=== PATIENT | female | born 1935 | race Caucasian/White ===

== ENCOUNTER → 2023-11-02 09:59 | Outpatient (REF) | payer OTHER, SELFPAY | LOC: HWRAD 09:59 | PROVIDERS: ATTENDING PHYSICIAN Colon & Rectal Surgery; FAMILY PHYSICIAN Family Medicine | DX: Z86.010 Personal history of colon polyps (principal) | CPT/HCPCS: 74261 ==

== ENCOUNTER → 2023-12-07 10:33 | Outpatient (REF) | payer OTHER, SELFPAY | LOC: HWWDC 10:33 | PROVIDERS: ATTENDING PHYSICIAN Obstetrics & Gynecology Gynecology; FAMILY PHYSICIAN Family Medicine | DX: Z12.31 Encounter for screening mammogram for malignant neoplasm of breast (principal) | CPT/HCPCS: 77063; 77067 ==

== ENCOUNTER → 2023-12-10 14:14 | Outpatient (REF) | payer OTHER, SELFPAY | LOC: HWRAD 14:14 | PROVIDERS: ATTENDING PHYSICIAN Internal Medicine; FAMILY PHYSICIAN Family Medicine | DX: Z90.5 Acquired absence of kidney (principal); C64.2 Malignant neoplasm of left kidney, except renal pelvis; N28.1 Cyst of kidney, acquired | CPT/HCPCS: 76775 ==

== ENCOUNTER → 2024-02-12 09:09 | Outpatient (REF) | payer OTHER, SELFPAY | LOC: PAVMRI 09:09 | PROVIDERS: ATTENDING PHYSICIAN Internal Medicine; FAMILY PHYSICIAN Family Medicine | DX: N28.89 Other specified disorders of kidney and ureter (principal) | CPT/HCPCS: 74183; A9575 ==

== ENCOUNTER 2024-03-11 20:22 | Inpatient (IN) | payer OTHER, SELFPAY ==
[2024-03-11 15:32] VITALS: BP 165/81
--- NOTE | 2024-03-11 17:10 | EDRN ---
Pt states she was leaving her urology office and foot got caught on ground causing pt to trip and fall. Pt fell on L side of head and bilateral knees. Pt arrived to ED via ambulance.
[2024-03-11 17:11] VITALS: BMI 26.6
--- NOTE | 2024-03-11 17:13 | EDRN ---
Pt states she was leaving PCP office and shoe got stuck on ground and she fell, hitting L side of head above eyebrow (bruising and swelling noted) and bilateral knees (bilateral abrasions w/R knee still bleeding and bilateral knee bruising noted).
Pain to L head 04/25. bilateral knees 11/25. L knee is worse than right and pain increases w/wt bearing.
--- NOTE | 2024-03-11 17:15 | EDRN ---
Yulissa Vega SECURITIES TRADER in to see pt.
[2024-03-11 17:20] VITALS: BP 190/73
[2024-03-11 18:25] VITALS: BP 164/89
--- NOTE | 2024-03-11 18:56 | EDRN ---
Pt is asking to take her 12.5 mg of coreg that she usually takes at this time. Pt is worried about her BP at this time. Will contact Yulissa Vega NP.
[2024-03-11] MEDS: ADACEL 0.5 ML IM (19:14)
--- NOTE | 2024-03-11 19:16 | ED.MUSCINJ ---
HPI-Injury
General
Chief Complaint: Fall
Source: patient
Exam Limitations: none
Time Seen by Provider: 03/11/24 16:59
Nursing documentation reviewed up to this point in time: agreed with
History of Present Illness-Injury
Is this injury a work related problem?: No
Is pt an associate of [facility]/[place]?: No
Initial Injury comments:
Patient states she tripped and fell while walking to an appointment. Denies hitting her head. Unable to get self up. COmplains of pain to bilateral knees. Has laceration to left eyebrow Brought to ED via EMS for eval.Incident occurred just [employer]
Past History
Past History
ED Past Medical History: GERD, HTN and Hypercholesterolemia
Review of Systems
Review of Systems
Allergies reviewed?: Yes
All Other Systems: ROS reviewed and negative except as documented in HPI and ROS
Constitutional: Reports no symptoms
EENT: Reports no symptoms
Respiratory: Reports no symptoms
Cardiac: Reports no symptoms
ABD/GI: Reports no symptoms
Musculoskeletal: Reports joint pain (Pain to both knees)
Skin: Reports other (abrasions bilateral knees. Laceration to left eyebrow)
Neurological: Reports no symptoms
Psychiatric: Reports no symptoms
Musculoskeletal Injury Exam
Musculoskeletal Injury Exam
Right Knee:
Pain with Movement?: Moderate
Tender to palpation?: Moderate
Soft tissue swelling?: Mild
External deformity and angulation?: None
Joint effusion?: None
Contusion?: Moderate
Hematoma-local bleeding into tissue?: Moderate
Strain- Sprain- Tear (Connective tissue injury)?: None
Crepitus with movement?: No
Joint instability?: No
Malalignment/deformity?: No
Range of motion: Limited
Distal skin color and temperature: normal-warm & good color
Capillary Refill: normal
Normal distal neurovascular exam?: Yes
Peripheral Pulses: posterior tibial (left): 3+, posterior tibial (right): 3+, dorsalis pedis (left): 3+ and dorsalis pedis (right): 3+
Left Knee:
Pain with Movement?: Moderate
Tender to palpation?: Moderate
Soft tissue swelling?: Moderate
External deformity and angulation?: None
Contusion?: Moderate
Hematoma-local bleeding into tissue?: Moderate
Strain- Sprain- Tear (Connective tissue injury)?: Moderate
Crepitus with movement?: No
Joint instability?: No
Malalignment/deformity?: No
Range of motion: Limited
Distal skin color and temperature: normal-warm & good color
Capillary Refill: normal
Skin Exam
Laceration
Left Eye brow:
Length in cm: 2
Orientation: diagonal
Type of Laceration: simple
Any active bleeding?: no active bleeding
Distal skin color and temperature: normal-warm & good color
Normal distal neurovascular exam: Yes
Range of motion: full
Abrasion
Right Knee:
Description of abrasion: superfical/clean
Left Knee:
Description of abrasion: superfical/clean
Phy Exam
General Physical Exam
General Presentation: well appearing and moderate distress
General age: appears stated age
General Skin: warm and dry
General Habitus: normal
General Mental: alert
Musculoskeletal Exam
Musculoskeletal Exam: neuro vasc intact and other (bruising and swelling bilateral knees. Unable to bear weight on left leg)
Skin Exam
Skin Exam: normal color, warm/dry and no rash
Psychiatric Exam
Psychiatric Exam: normal mood/affect
Injury Course
Orders/Labs/Results
Orders:
Orders
03/11/24 Dinner
Regular
At Your Request: Limited Participation
03/11/24 15:34
CR Knee - Left 4 Or More View* Urgent
Comment:
Reason For Exam: injury
03/11/24 17:41
CR Knee- Right 4 Or More View* Urgent
Comment:
Reason For Exam: pain, injury
03/11/24 17:44
Tetanus/Diphth/Acelpertussis [Adacel] 0.5 ml IM .ONCE ONE
03/11/24 19:06
Carvedilol [Coreg] 12.5 mg PO NOW STA
03/11/24 19:51
ORTHOPEDIC CONSULT Urgent
Consulting Provider: Nirav Arroyo
Was physician already notified: Yes
03/11/24 20:05
Admit/Transfer Patient As Directed
Co-Sign Provider:
Level of Care: Inpatient admission
Assign to:: Medical/Surgical
Physician / Group: pennie
Diagnosis: proximal tibia fracture
Reason for Hospitalization: proximal tibia fracture
Expected length of stay greater than two midnights?: Yes
ELOS- Estimated Length of Stay in days: 2
I certify the patient meets the requirements for IP care: Yes
PRN Pain Medication Management As Directed
May give lesser potent ordered pain med per pt: Yes
preference::
Protocol:: Medication orders for pain may be administered in a
manner that supports deferring to patient preference
when the pt is:
- Requesting an ordered lesser potent pain medication.
Least to most potent pain medications are defined
as: acetaminophen < NSAID < tramadol < opioids
(morphine, oxycodone, hydromorphone).
- Requesting a lesser dose of the same medication IF
ORDERED.
- Requesting a less intrusive route of administration
if both routes are prescribed by the provider (PO <
IV).
03/11/24 20:07
Code Status As Directed
Resuscitation Status: Full Code
03/11/24 20:24
Complete Blood Count/With Diff Urgent
Comprehensive Metabolic Panel Urgent
03/11/24 21:32
Acetaminophen [Tylenol] 650 mg PO Q4HPRN PRN
Ondansetron Injectable [Zofran] 4 mg IV Q6HPRN PRN
Oxycodone [Roxicodone] 5 mg PO Q4HPRN PRN
Tramadol HCl [Ultram] 50 mg PO Q6HPRN PRN
03/11/24 21:32
Activity As Directed
Activity Level: As Tolerated
Pneumatic Compression Sleeves As Directed
Type: Knee high
Vital Signs As Directed
Frequency: Per unit guidelines
DX Deep Vein Thrombosis Video Routine
03/12/24 05:43
Complete Blood Count/With Diff IN AM
Comprehensive Metabolic Panel IN AM
*Radiology
Radiology exam reviewed: radiology read reviewed
*Pulse Oximetry
Patient hypoxic: no
*Critical Care Note
Total Time (30-74mins, 75-104mins- exclusive of procedures): Not Applicable
ED Attending Note
-
Portions of this chart may have been created with voice recognition software.� Occasional wrong word or��sound alike� substitutions may have occurred due to the inherent limitations of voice recognition software.
Discharge Plan
Departure
Patient Disposition: Admit
Date of Disposition: 03/11/24
Time of Disposition: 19:32
Presentation/result/management discussed w/ accepting MD/DO: Hospitalist
Patient with high blood pressure during this ER visit?: No
Condition: Fair
Covid-19: Not Applicable
Discharge Problem:
Ambulatory dysfunction, Fracture, tibia
Interventions
Interventions:
*Risk Screen - Suicide Last Done: 03/11/24 17:12
*General Assessment Last Done: 03/11/24 17:12
*Neglect/Abuse Screening Last Done: 03/11/24 17:12
ED- Fall Risk Assessment Last Done: 03/11/24 17:13
*ED COVID-19 Vaccine History Last Done: 03/11/24 17:12
*Nursing Disposition Last Done: 03/11/24 22:07
ED-Musculoskeletal Assessment Last Done: 03/11/24 17:16
ED- Neurological Assessment Last Done: 03/11/24 17:16
ED-Skin Assessment Last Done: 03/11/24 17:16
Discharge Date and Time
Discharge Date/Time: 03/11/24 22:07
[2024-03-11] MEDS: COREG 12.5 MG PO (19:18)
--- NOTE | 2024-03-11 19:27 | EDRN ---
Bilateral knees cleansed extensively w/ saline and dressed w/ double antibiotic ointment, telfa and renny.
--- NOTE | 2024-03-11 20:09 | HPS.HSE ---
Family Physician
-
Family Physician: Glen Lomeli
Chief Complaint
-
fall
History of Present Illness
88-year-old female past medical history of paroxysmal atrial fibrillation, bronchiectasis hypertension, GERD, hypercholesterolemia presenting with trip and fall while walking to an appointment. Denies hitting her head. She complains of left knee
pain.
Denies smoking alcohol use.
Medical History
Past Medical History
Past Medical History: Reports Other (paroxysmal atrial fibrillation, bronchiectasis hypertension, GERD, hypercholesterolemia)
Past Surgical History: Reports None
Social History
Tobacco: Non-smoker
Alcohol: None
Drug: None
Family History
Family History: Not pertinent
Allergies / Home Medications
Allergies reflects when Allergies were last updated in [employer].
Home Medications with original date entered in [employer]
Allergy/Medication List:
Allergies
Allergy/AdvReac Type Severity Reaction Status Date / Time
adhesive tape Allergy sensitive Verified 03/11/24 15:32
skin
chlorpheniramine Allergy taken from Verified 03/11/24 15:32
primary
follow up
visit
oxycodone Allergy taken from Verified 03/11/24 15:32
primary
follow up
visit
phenylephrine Allergy taken from Verified 03/11/24 15:32
primary
follow up
visit
rosuvastatin Allergy taken from Verified 03/11/24 15:32
primary
follow up
visit
silver sulfadiazine Allergy taken from Verified 03/11/24 15:32
primary
follow up
visit
methylscopolamine Allergy taken from Uncoded 03/11/24 15:32
primary
follow up
visit
Home Medications
Mometasone Furoate 1 drops EACH EAR HS EAR PROBLEM 04/29/19
carvedilol 12.5 mg tablet 12.5 mg PO BID Heart Failure 04/29/19
denosumab 60 mg/mL subcutaneous syringe (Prolia) 60 mg SQ [id number] OSTEOPROSIS 04/29/19
pantoprazole 40 mg tablet,delayed release 40 mg PO DAILY Gastrointestinal issue 04/29/19
temazepam 15 mg capsule 15 mg PO HS Sleep 04/29/19
tramadol 50 mg tablet 50 mg PO DAILYPRN PRN pain 04/29/19
Cholecalciferol (Vitamin D3) [Vitamin D3] 50 mcg PO DAILY Supplement 08/09/20
Konsyl Daily Fiber 28.3% Packet 1 tsp PO DAILY Supplement 08/09/20
Systane Eye Drops 1 drp BOTH EYES TID Eye condition 08/09/20
amlodipine 5 mg tablet 5 mg PO DAILY Blood pressure 08/09/20
apixaban 5 mg tablet (Eliquis) 5 mg PO BID Blood clot prevention/tx 08/09/20
epdmotjy-gpyj-jupu 8 mg-folic 400 mcg-K 50 mcg-lutein 300 mcg tablet (Centrum Silver Women) 1 ea PO NOON Supplement 08/09/20
pitavastatin calcium 2 mg tablet (Livalo) 2 mg PO Q48H High cholesterol 08/09/20
vit C 250 mg-vit E 90 mg-zinc 40 mg-copper 1 sg-ywnncx-zqpgjp capsule (PreserVision AREDS-2) 1 ea PO BID Supplement 08/09/20
aspirin 81 mg chewable tablet 81 mg PO DAILY 10/17/20
Citracal Calcium 1 tab PO BID 11/29/20
levothyroxine 100 mcg tablet 100 mcg PO DAILY 11/29/20
Review of Systems
-
History Source: Patient
A 12 point ROS was completed and negative except as noted: Yes
Constitutional: Reports No Symptoms
EENT: Reports No Symptoms
Respiratory: Reports No Symptoms
Cardiac: Reports No Symptoms
Abdomen/GI: Reports No Symptoms
: Reports No Symptoms
Musculoskeletal: Reports No Symptoms
Skin: Reports No Symptoms
Neurological: Reports No Symptoms
Endocrine: Reports No Symptoms
Hematologic/Lymphatic: Reports No Symptoms
Psych: Reports No Symptoms
Physical Exam
Vital Signs
Vital Signs
Temp Pulse Resp BP Pulse Ox
98.2 F 87 16 180/103 97
03/11/24 15:32 03/11/24 19:18 03/11/24 18:25 03/11/24 19:18 03/11/24 18:25
Physical Exam
General: Well Developed, Well Nourished and No Apparent Distress
HEENT: NormoCephalic, Moist mucous membranes and Atraumatic
Respiratory: Clear
Cardiac: S1/S2 and Regular Rhythm; No Murmur or Rub
GI: Soft, Non Tender, Non Distended and Normal Bowel Sounds; No Organomegaly
Rectal: Deferred by Provider
Musculoskeletal: No Clubbing, No Cyanosis and No Edema
Skin: No Rash
Neuro: Nonfocal/grossly intact
Data Reviewed
-
Lab Data: Labs Reviewed by me
Old Records: Reviewed
Impression/Plan
-
IMPRESSION:
PLAN:
# Left proximal tibia fracture
-N.p.o. postmidnight in case surgery recommended
-Orthopedics consulted
-Tylenol, tramadol, oxycodone for pain as needed
-Zofran for nausea
#Forehead laceration
Hypertension
-Continue amlodipine, Coreg
Paroxysmal atrial fibrillation
-Not on anticoagulation
-Continue flecainide
Bronchiectasis
GERD
-Continue Protonix
Hypercholesterolemia
-Continue statin
Hypothyroidism
-Continue levothyroxine
Full code
DVT prophylaxis�SCDs
N.p.o. past midnight
[2024-03-11 20:31] LABS: % Basophils 0.1 % (0-2); % Immature Granulocytes 0.2 % (0-0.5); % Lymphocytes 12.6 % (20.5-51.1); % Monocytes 7.7 % (1.7-9.3); % Neutrophils 79.4 % (42.2-75.2); Absolute Lymphocytes 1.7 10^3/uL (1.2-3.4); Absolute Neutrophils 10.4 10^3/uL (1.4-6.5); Hematocrit 40.1 % (37.0-47.0); Mean Corp Hgb Conc. 32.4 g/dL (33.0-37.0); Mean Corpuscular Hgb 28.9 pg (27.0-31.0); Mean Corpuscular Volume 89.1 fL (81.0-99.0); Mean Platelet Volume 10.5 fL (7.4-10.4); Nucleated Red Blood Cells % 0 %; Platelet Count 163 10^3/uL (130-400); Red Cell Dist. Width 12.9 % (11.5-14.5); White Blood Cell Count 13.1 10^3/uL (4.8-10.8)
[2024-03-11 20:49] LABS: ALT (SGPT) 18 U/L (0-35); AST (SGOT) 31 U/L (14-36); Albumin 3.8 g/dl (3.5-5.0); Alkaline Phosphatase 88 U/L (38-126); Blood Urea Nitrogen 23 mg/dl (7-17); Calcium 9.2 mg/dl (8.4-10.2); Carbon Dioxide 26 mmol/L (22-30); Chloride 102 mmol/L (98-107); Estimated Creatinine Clearance 36 ml/min; Glucose 123 mg/dl (70-99); Potassium 4.4 mmol/L (3.5-5.1); Sodium 136 mmol/L (135-145); Total Bilirubin 0.5 mg/dl (0.2-1.3); Total Protein 6.4 g/dl (6.3-8.2); eGFR > 60.00
--- NOTE | 2024-03-11 21:15 | PTCARENOTE ---
patient arrived to [facility] from ED, assisted into bed. Knee immobolizer maintained to L leg, b/l knee abrasions with intact dressings. L eyebrow laceration with intact steri strips, gross ecchymosis around L eye with swelling. Patient is AAOx3, very
pleasant, c/o of pain only during transfer to bed. Assessment on going.
[2024-03-11 21:40] VITALS: BP 197/95
[2024-03-11 21:50] VITALS: BMI 26.5
[2024-03-11] MEDS: ZOFRAN 4 MG IV (22:50)
[2024-03-11] MEDS: TYLENOL 650 MG PO (22:51)
[2024-03-11 23:10] VITALS: BP 172/78
[2024-03-11 23:44] VITALS: BMI 26.5
[2024-03-12] VITALS (12 sets, daily range): BP systolic 87–143; BP diastolic 47–82
[2024-03-12] MEDS: RESTORIL 15 MG PO ×2 (00:07→23:51)
[2024-03-12] MEDS: REFRESH CELLUVISC GEL 1 DROPS BOTH EYES ×4 (00:07→20:06)
[2024-03-12] MEDS: TAMBOCOR 50 MG PO ×3 (00:29→23:51)
[2024-03-12] MEDS: SYNTHROID 150 MCG PO (06:10)
[2024-03-12 06:37] LABS: % Basophils 0.1 % (0-2); % Eosinophils 0.5 % (0-6); % Immature Granulocytes 0.4 % (0-0.5); % Lymphocytes 15.3 % (20.5-51.1); % Monocytes 8.7 % (1.7-9.3); Absolute Eosinophils 0.1 10^3/uL (0-0.7); Absolute Lymphocytes 1.6 10^3/uL (1.2-3.4); Absolute Monocytes 0.9 10^3/uL (0.1-0.6); Absolute Neutrophils 7.7 10^3/uL (1.4-6.5); Hematocrit 35.9 % (37.0-47.0); Hemoglobin 11.8 g/dL (12.0-16.0); Mean Corp Hgb Conc. 32.9 g/dL (33.0-37.0); Mean Corpuscular Hgb 28.8 pg (27.0-31.0); Mean Corpuscular Volume 87.6 fL (81.0-99.0); Mean Platelet Volume 11.2 fL (7.4-10.4); Nucleated Red Blood Cells % 0 %; Platelet Count 151 10^3/uL (130-400); Red Cell Dist. Width 13.2 % (11.5-14.5); White Blood Cell Count 10.2 10^3/uL (4.8-10.8)
[2024-03-12 06:58] LABS: ALT (SGPT) 15 U/L (0-35); AST (SGOT) 25 U/L (14-36); Albumin 3.2 g/dl (3.5-5.0); Alkaline Phosphatase 65 U/L (38-126); Blood Urea Nitrogen 24 mg/dl (7-17); Calcium 8.6 mg/dl (8.4-10.2); Carbon Dioxide 24 mmol/L (22-30); Chloride 102 mmol/L (98-107); Estimated Creatinine Clearance 29 ml/min; Glucose 115 mg/dl (70-99); Potassium 4.3 mmol/L (3.5-5.1); Sodium 135 mmol/L (135-145); Total Bilirubin 0.5 mg/dl (0.2-1.3); Total Protein 5.6 g/dl (6.3-8.2); eGFR 48.33
[2024-03-12] MEDS: PROTONIX 40 MG PO (08:28)
[2024-03-12] MEDS: COREG 12.5 MG PO ×2 (08:28→20:06)
[2024-03-12] MEDS: DETROL LA 4 MG PO (09:43)
[2024-03-12] MEDS: LOW STRENGTH ASPIRIN 81 MG PO (09:43)
--- NOTE | 2024-03-12 10:16 | CM ---
Reviewed the chart notes and spoke with the patient at the bedside. The patient resides alone in a first floor condo with no steps to enter. The patient reports having a cane. The patient has had [facility] in past, but no SNF. The patient
confirmed her pharmacy of choice is the [facility] [place] and PCP is Glen Lomeli. Ortho consult pending. CM continues to be available to patient/family and is monitoring medical plan for needs at discharge.
Plan: Discharge plans will depend on the patient's progress.
--- NOTE | 2024-03-12 10:45 | CON.ORTHO ---
Consultation
-
Date/Time Consultation Requested: 03/11/2024
Date/Time Consultation Performed: 03/12/2024
Requesting Provider: Josselin Vega NP
Performing Provider: Pavithra Massey PA-C, for Dr. Nirav Arroyo
Reason for Consultation: Left knee proximal tibia fracture; right knee pain
Consultation - Orthopedics
History
HPI: Ms. Nettles is an 88-year-old female who presented to [facility] emergency department after sustaining a fall at the [facility] while walking into an appointment. She reports she landed directly on both of her knees. Initially, the
left knee was more painful, but she was also complaining of right knee pain. X-rays of the bilateral knees were performed and the left knee was noted to have a nondisplaced fracture of the proximal tibia. X-rays of the right knee were negative for
acute fracture, but did demonstrate chondrocalcinosis and moderate tricompartmental osteoarthritis. She was placed in a knee immobilizer on her left knee and advised to remain nonweightbearing. She did attempt to get up in the emergency department
to go to the bathroom, however, found that she was unable to place any weight on her right knee in addition to the left knee. Today, she is also complaining of some pain in her right groin. No hip x-rays were obtained.
Past medical history: Significant for paroxysmal atrial fibrillation, bronchiectasis, hypertension, GERD, hypercholesterolemia.
Social history: Denies tobacco or alcohol use.
Review of systems: All systems reviewed and negative except for those mentioned in HPI.
Allergies / Home Medications
Allergy/AdvReac Type Severity Reaction Status Date / Time
adhesive tape Allergy sensitive Verified 03/11/24 15:32
skin
chlorpheniramine Allergy taken from Verified 03/11/24 15:32
primary
follow up
visit
oxycodone Allergy taken from Verified 03/11/24 15:32
primary
follow up
visit
phenylephrine Allergy taken from Verified 03/11/24 15:32
primary
follow up
visit
rosuvastatin Allergy taken from Verified 03/11/24 15:32
primary
follow up
visit
silver sulfadiazine Allergy taken from Verified 03/11/24 15:32
primary
follow up
visit
methylscopolamine Allergy taken from Uncoded 03/11/24 15:32
primary
follow up
visit
�Medication �Instructions �Recorded
Mometasone Furoate 1 drops EACH EAR HS EAR PROBLEM 04/29/19
carvedilol 12.5 mg tablet 12.5 mg PO BID Heart Failure 04/29/19
denosumab 60 mg/mL subcutaneous 60 mg SQ [id number] OSTEOPROSIS 04/29/19
syringe (Prolia)
pantoprazole 40 mg tablet,delayed 40 mg PO DAILY Gastrointestinal 04/29/19
release issue
temazepam 15 mg capsule 15 mg PO HS Sleep 04/29/19
tramadol 50 mg tablet 50 mg PO DAILYPRN PRN pain 04/29/19
Cholecalciferol (Vitamin D3) 50 mcg PO DAILY Supplement 08/09/20
[Vitamin D3]
Konsyl Daily Fiber 28.3% Packet 1 tsp PO DAILY Supplement 08/09/20
Systane Eye Drops 1 drp BOTH EYES TID Eye condition 08/09/20
hsnhalwn-pnqg-yjxs 8 mg-folic 400 1 ea PO NOON Supplement 08/09/20
mcg-K 50 mcg-lutein 300 mcg tablet
(Centrum Silver Women)
pitavastatin calcium 2 mg tablet 2 mg PO Q48H High cholesterol 08/09/20
(Livalo)
vit C 250 mg-vit E 90 mg-zinc 40 1 ea PO BID Supplement 08/09/20
mg-copper 1 lp-fgeksn-rirdyl
capsule (PreserVision AREDS-2)
Citracal Calcium 1 tab PO BID Supplement 11/29/20
levothyroxine 100 mcg tablet 150 mcg PO DAILY Thyroid 11/29/20
Gemtesa 75 mg PO DAILY Urinary Issue 03/12/24
aspirin 81 mg chewable tablet 81 mg PO DAILY Blood Clot 03/12/24
Prevention/Tx
atorvastatin 10 mg tablet 10 mg PO DAILY 03/12/24
Vital Signs / Lab Results
Temp Pulse Resp BP Pulse Ox
99.2 F 83 17 126/48 97
03/12/24 07:38 03/12/24 08:28 03/12/24 07:38 03/12/24 08:28 03/12/24 07:38
03/12/24 05:43
03/12/24 05:43
Physical examination:
General: Well-developed, well-nourished female in no acute distress at rest. Alert and oriented x 4.
HEENT: Ecchymosis about the left eye.
Lungs: Nonlabored breathing on room air, no audible wheezing.
Right knee: Superficial abrasions noted about the anterior aspect of the knee. No active drainage or surrounding erythema. Small effusion present. Tenderness to palpation over medial tibial plateau. Range of motion limited secondary to pain, 0
to 60 degrees. No pain or laxity with varus valgus stress of the knee. Calf is soft and nontender palpation. Neurovascular tact distally.
Right hip: Pain with both internal and external rotation of the hip. [place] with pain in the groin. Any motion of the hip also elicits pain in the knee.
Left knee: Tenderness to palpation over proximal tibia, mainly anteriorly. Superficial abrasions also present. Trace effusion. Range of motion of the left knee not tested. Calf is soft and nontender palpation. Neurovascular intact distally.
Radiographic studies:
X-rays of the left knee demonstrate a left, nondisplaced proximal tibia fracture.
X-rays of the right knee demonstrate no evidence of acute osseous abnormality. Moderate tricompartmental osteoarthritis with chondrocalcinosis.
Assessment / Plan
Assessment: Left proximal tibia fracture, nondisplaced; Right knee pain.
Plan: During the fall, Ms. Nettles sustained a nondisplaced fracture to the anterior aspect of her proximal tibia. Fortunately, this is nonsurgical in nature and may be treated with full-time immobilization in a knee immobilizer as well as touchdown
weightbearing on the left lower extremity. She lives alone, so will require placement in a [place] [facility] facility upon discharge. Today, she is also complaining of inability to bear weight on her right lower extremity. X-rays of the right knee
in the emergency department were negative for acute fracture, but did demonstrate moderate arthritis of the right knee. She does have pretty significant tenderness to palpation over the medial tibial plateau, so I plan to order an MRI of the right
knee to further evaluate for an occult fracture. Alternatively, this could be secondary to a contusion or flare of her underlying arthritis. She was also complaining of right hip/groin pain and noted to have pain with motion of her hip on exam
today. As a result, I am also ordering x-rays of her right hip to rule out any bony pathology. In the meantime, she will limit the weightbearing on the right lower extremity until the imaging rules out occult fractures.
Patient seen with Dr. Arroyo
Update: MRI of the right knee demonstrated a nondepressed/nondisplaced lateral tibial plateau. Recommend knee immobilizer be placed on RLE and TDWB on the RLE. Hip x-rays were negative for acute fracture. Will need extended SNF stay due to
limited weight bear on her B/L lower extremities. We will see her back in the office for repeat x-rays in 2 weeks (x-rays to be completed in our office). Case was discussed with patient, her daughter, and her nurse, Christie.
--- NOTE | 2024-03-12 13:13 | W.PN.HOSP.TC ---
Today's Communication/Plan
-
Await Ortho input regarding MRI right knee results
Need to clarify weightbearing for right lower extremity
eventual snf rehab
Assessment / Plan
Assessment / Plan
RIGHT knee MRI
1. Comminuted nondisplaced/nondepressed proximal tibia fracture as described.
2. Medial meniscus tearing as described.
3. Tricompartmental osteoarthritis.
4. Moderate suprapatellar joint effusion with lipohemarthrosis.
LEFT knee xray
Findings suggesting a new nondisplaced fracture of the anterior proximal left tibia. See above.
Mild tricompartmental osteoarthritis. Stable.
Mild medial and lateral compartment chondrocalcinosis. New

Bilateral nondisplaced proximal tibial fracture
Mechanical fall
-Initial left knee x-ray in ER showing nondisplaced fracture of anterior proximal left tibia
-Left knee immobilizer has been placed
-Ortho evaluated in the morning and no surgical indication
-Toe-touch weightbearing allowed on left lower extremity
-As patient was having right knee pain, a follow-up MRI done today showing nondisplaced proximal tibial fracture of right leg as well
-Orthopedic surgery has been consulted for further opinion
Forehead laceration
-bandage in place by ER doc
Hypertension
-Continue amlodipine, Coreg
Paroxysmal atrial fibrillation
-Not on anticoagulation
-Continue flecainide
Bronchiectasis
GERD
-Continue Protonix
Hypercholesterolemia
-Continue statin
Hypothyroidism
-Continue levothyroxine
Full code
DVT prophylaxis�SCDs
Total time spent 52 minutes
Anticipated Discharge: 24 - 48 hours
Subjective/Interval History
-
Date of Service: March 12, 2024
Resting comfortably in chair
Complaining some right knee pain
Some discomfort for left knee immobilizer
Objective Data
-
Labs:
Laboratory Results
03/12/24
05:43
WBC 10.2
Hgb 11.8 L
Hct 35.9 L
Plt Count 151
Sodium 135
Potassium 4.3
Chloride 102
Carbon Dioxide 24
BUN 24 H
Creatinine 1.1 H
Glucose 115 H
Calcium 8.6
Total Bilirubin 0.5
AST 25
ALT 15
Alkaline Phosphatase 65
Vital Signs:
Vital Signs
Temp Pulse Resp BP Pulse Ox
98.2 F 74 17 116/49 95
03/12/24 11:57 03/12/24 11:57 03/12/24 11:57 03/12/24 11:57 03/12/24 11:57
I&O
03/11/24 03/12/24 03/13/24
06:59 06:59 06:59
Intake Total 480 / 480
Balance 480 / 480
Review of Systems
-
Respiratory: Reports No Symptoms
Cardiac: Reports No Symptoms
Abdomen/GI: Reports No Symptoms
Physical Exam
-
General: No Apparent Distress and Comfortable
HEENT: Other (Left periorbital ecchymosis); Negative Oxygen
Respiratory: Clear to Auscultation
Cardiac: Regular Rhythm and S1/S2; Negative Murmur or Rub
GI: Soft, Nontender and Nondistended
Musculoskeletal: No Edema and Other (Left knee immobilizer in place)
Neuro: Awake, Alert, Oriented, No Motor Deficits and Nonfocal/Grossly Intact
Psych: Calm
[2024-03-12] MEDS: CARDIZEM 10 MG IV (18:23)
--- NOTE | 2024-03-12 18:25 | W.PN.UPDATE ---
Update Note
Progress Note Update
Called by nursing as patient went into A-fib with RVR. Rates as high as 190. Patient currently denies chest pain or shortness of breath. No acute distress, awake and alert. Tachycardic, irregular rhythm, normal S1-S2. Clear to auscultation
bilaterally. Tele with afib with RVR @ 186 on my review.
A/P:
-cardizem 10mg IV x 1 followed by cardizem gtt, goal HR<100
-transfer to IMU
-h/o watchman in 2020, not on AC
-c/s cards ([employer] message sent to Dr. Waller at 181). Pt sees Dr. House.
-check echo
-SBP 140s, not an unstable tachycardia, no indication for urgent synchronized CV
[2024-03-12 18:33] LABS: INR 1.23; PT 15.8 Sec (11.4-14.6)
[2024-03-12 18:34] LABS: APTT 42.6 Sec (23.4-35.0)
--- NOTE | 2024-03-12 18:34 | W.PN.UPDATE ---
Update Note
Progress Note Update
Correction: Pt is known to CBC as per Dr. Waller. Case discussed with Dr. Huitron over [employer]. OK to continue Flecainide and Coreg while on cardizem gtt.
[2024-03-12 18:35] LABS: ALT (SGPT) 18 U/L (0-35); AST (SGOT) 29 U/L (14-36); Albumin 3.8 g/dl (3.5-5.0); Alkaline Phosphatase 75 U/L (38-126); Blood Urea Nitrogen 25 mg/dl (7-17); Calcium 8.9 mg/dl (8.4-10.2); Carbon Dioxide 27 mmol/L (22-30); Chloride 100 mmol/L (98-107); Estimated Creatinine Clearance 29 ml/min; Glucose 129 mg/dl (70-99); Potassium 4.4 mmol/L (3.5-5.1); Sodium 133 mmol/L (135-145); Total Bilirubin 0.5 mg/dl (0.2-1.3); Total Protein 6.5 g/dl (6.3-8.2); eGFR 48.33
--- NOTE | 2024-03-12 18:42 | PTCARENOTE ---
At 1749, patient's tele monitor showing vfib/vtach in 170s-190s. Rapid response was called and conductor sleeping car MD (Dr. Barnett) notified. EKG obtained which showed afib RVR. BP 143/82, temp 99.7. MD ordered troponins, IMU transfer, cardizem 10mg push and gtt.
Cardizem push administered and HR decreased to 105. Patient transferred to IMU for cardizem drip.
[2024-03-12] MEDS: CARDIZEM 125 IV (18:50)
--- NOTE | 2024-03-12 19:39 | PTCARENOTE ---
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 Received report from Siobhan Soriano RN via telephone. Patient moved over to bed. Cardizem gtt titrated up to 15mg. Afib RVR on tele, HR 120-150s. Pt asymptomatic. Sp02 85% on RA, placed on 2L
NC. Sp02 94%.
Oriented to room and use of call zhao. Pt appreciative of care.
[2024-03-13] VITALS (12 sets, daily range): BP systolic 86–114; BP diastolic 52–96
[2024-03-13] MEDS: SYNTHROID 150 MCG PO (04:56)
[2024-03-13] MEDS: CARDIZEM 125 IV ×2 (04:56→17:01)
[2024-03-13 05:15] LABS: Hematocrit 36.2 % (37.0-47.0); Hemoglobin 12.2 g/dL (12.0-16.0); Mean Corp Hgb Conc. 33.7 g/dL (33.0-37.0); Mean Corpuscular Hgb 29.5 pg (27.0-31.0); Mean Corpuscular Volume 87.4 fL (81.0-99.0); Mean Platelet Volume 11.6 fL (7.4-10.4); Platelet Count 149 10^3/uL (130-400); Red Blood Cell Count 4.14 10^6/uL (4.20-5.40); Red Cell Dist. Width 13.2 % (11.5-14.5); White Blood Cell Count 10.5 10^3/uL (4.8-10.8)
[2024-03-13 05:40] LABS: Blood Urea Nitrogen 25 mg/dl (7-17); Calcium 8.3 mg/dl (8.4-10.2); Carbon Dioxide 23 mmol/L (22-30); Chloride 102 mmol/L (98-107); Estimated Creatinine Clearance 32 ml/min; Glucose 119 mg/dl (70-99); Potassium 4.9 mmol/L (3.5-5.1); Sodium 134 mmol/L (135-145); eGFR 54.19
[2024-03-13 06:54] LABS: Urine Albumin Negative (Neg - Trace); Urine Bilirubin Negative (Negative); Urine Character Clear (Clear); Urine Color Yellow; Urine Glucose Negative (Negative); Urine Ketone Negative (Negative); Urine Leukocyte Negative (Negative); Urine Nitrite Negative (Negative); Urine Occult Blood Negative (Negative); Urine Specific Gravity 1.015 (<1.030); Urine Urobilinogen Negative (Neg - 1+)
[2024-03-13] MEDS: LOW STRENGTH ASPIRIN 81 MG PO (09:00)
[2024-03-13] MEDS: PROTONIX 40 MG PO (09:00)
[2024-03-13] MEDS: COREG 12.5 MG PO ×2 (09:00→20:55)
[2024-03-13] MEDS: REFRESH CELLUVISC GEL 1 DROPS BOTH EYES ×3 (09:01→20:55)
[2024-03-13] MEDS: DETROL LA 4 MG PO (09:01)
--- NOTE | 2024-03-13 09:03 | W.PN.HOSP.TC ---
Addendum entered and electronically signed by Johan Rodriguez MD 03/13/24 09:18:
Patient not voicing significant pain complaint, reason unclear for sudden afib/rvr. Didn't miss dose of home meds. With significant tachycardia/hypoxia will check for PE.
Difficult to do DVT testing with lower extremity fracture/pain
D-dimer will not be helpful to r/o VTE with new fracture.
Cr 1 today and will monitor.
Original Note:
Today's Communication/Plan
-
start Lovenox for DVT ppx
continue rate control per cards
possible CV tomorrow
Assessment / Plan
Assessment / Plan
RIGHT knee MRI
1. Comminuted nondisplaced/nondepressed proximal tibia fracture as described.
2. Medial meniscus tearing as described.
3. Tricompartmental osteoarthritis.
4. Moderate suprapatellar joint effusion with lipohemarthrosis.
LEFT knee xray
Findings suggesting a new nondisplaced fracture of the anterior proximal left tibia. See above.
Mild tricompartmental osteoarthritis. Stable.
Mild medial and lateral compartment chondrocalcinosis. New

Bilateral nondisplaced proximal tibial fracture
Mechanical fall
-Initial left knee x-ray in ER showing nondisplaced fracture of anterior proximal left tibia
-Left knee immobilizer has been placed
-Ortho evaluated in the morning and no surgical indication
-Toe-touch weightbearing allowed on left lower extremity
-As patient was having right knee pain, a follow-up MRI done today showing nondisplaced proximal tibial fracture of right leg as well
-Orthopedic surgery recommended for right knee to be immobilized as well with toe-touch weightbearing only
-Eventually will require rehab placement once medically cleared
-At high risk for DVT as patient will be more or less bedbound for 4-6 weeks. started lovenox for DVT PPX.
Paroxysmal atrial fibrillation with rapid ventricular rate
Status post Watchman device
-03/12 evening patient went into RVR with heart rate in 190-200 range, patient asymptomatic at that time, rapid response was called
-Patient started on Cardizem drip and moved to IMU currently on maximal dose of 15 mg/h
-Oral Coreg added as well
-Continue home dose of flecainide
-Cardiology considering for patient to be cardioverted tomorrow
Forehead laceration
-bandage in place by ER doc
Hypertension
-Maximize rate control medication. hold other BP meds.
Bronchiectasis
GERD
-Continue Protonix
Hypercholesterolemia
-Continue statin
Hypothyroidism
-Continue levothyroxine
History of surgery pulmonary nodule
History of neuropathy
Sensorineural hearing loss
Osteoporosis
Spinal stenosis
History of hysterectomy
History of parathyroid node resection
Full code
DVT prophylaxis�Lovenox
Care plan discussed with cardiology
Total time spent 53 minutes
Anticipated Discharge: 24 - 48 hours
Subjective/Interval History
-
Date of Service: March 13, 2024
Having some minimal chest discomfort
Denies excessive palpitation/dizziness/nausea
Pain manageable in both leg
Objective Data
-
Labs:
Laboratory Results
03/13/24
04:54
WBC 10.5
Hgb 12.2
Hct 36.2 L
Plt Count 149
Sodium 134 L
Potassium 4.9
Chloride 102
Carbon Dioxide 23
BUN 25 H
Creatinine 1.0
Glucose 119 H
Calcium 8.3 L
Vital Signs:
Vital Signs
Temp Pulse Resp BP Pulse Ox
98.6 F 122 18 114/62 96
03/13/24 07:05 03/13/24 06:45 03/13/24 06:45 03/13/24 06:00 03/13/24 06:45
I&O
03/12/24 03/13/24 03/14/24
06:59 06:59 06:59
Intake Total 480 / 480 660 / 660
Output Total 975 / 975
Balance 480 / 480 -315 / -315
Review of Systems
-
Respiratory: Reports No Symptoms
Cardiac: Denies Chest Pain or Diaphoresis
Abdomen/GI: Reports No Symptoms
Physical Exam
-
General: No Apparent Distress and Comfortable
HEENT: Other (Left periorbital ecchymosis); Negative Oxygen
Respiratory: Clear to Auscultation
Cardiac: Regular Rhythm, S1/S2 and Tachycardic; Negative Murmur or Rub
GI: Soft, Nontender and Nondistended
Musculoskeletal: No Edema and Other (Bilateral knee immobilizer in place)
Neuro: Awake, Alert, Oriented, No Motor Deficits and Nonfocal/Grossly Intact
Psych: Calm
--- NOTE | 2024-03-13 09:21 | CON.CAR ---
Consultation
Consultation Request
Date/Time Consultation Requested: 03/12/2024, 630pm
Date/Time Consultation Performed: 03/13/2024, 830am
Requesting Provider: Ericka
Performing Provider: Tomy
Reason for Consultation: A fib with RVR
Medical History
-
Chief Complaint: palps
History of Present Illness:
88 yo female with PMH of paroxysmal A fib, s/p Watchman 2020, HTN, hyperlipidemia is admitted following mechanical fall and bilateral tibial fractures. We are consulted for A fib with RVR. She feels palps; no other cardiac complaints.
Past Medical History
Past Medical History: Arrhythmias (paroxysmal A fib), GERD, HTN and Hypercholesterolemia
Social History
Tobacco: Non-Smoker
Family History
Family History: Early CAD (none)
Allergies / Home Medications
Allergy/AdvReac Type Severity Reaction Status Date / Time
adhesive tape Allergy sensitive Verified 03/11/24 15:32
skin
chlorpheniramine Allergy taken from Verified 03/11/24 15:32
primary
follow up
visit
oxycodone Allergy taken from Verified 03/11/24 15:32
primary
follow up
visit
phenylephrine Allergy taken from Verified 03/11/24 15:32
primary
follow up
visit
rosuvastatin Allergy taken from Verified 03/11/24 15:32
primary
follow up
visit
silver sulfadiazine Allergy taken from Verified 03/11/24 15:32
primary
follow up
visit
methylscopolamine Allergy taken from Uncoded 03/11/24 15:32
primary
follow up
visit
�Medication �Instructions �Recorded �Confirmed �Type
Mometasone Furoate 1 drops EACH EAR HS EAR PROBLEM 04/29/19 11/29/20 History
carvedilol 12.5 mg tablet 12.5 mg PO BID Heart Failure 04/29/19 11/29/20 History
denosumab 60 mg/mL subcutaneous 60 mg SQ [id number] OSTEOPROSIS 04/29/19 11/29/20 History
syringe (Prolia)
pantoprazole 40 mg tablet,delayed 40 mg PO DAILY Gastrointestinal 04/29/19 11/29/20 History
release issue
temazepam 15 mg capsule 15 mg PO HS Sleep 04/29/19 11/29/20 History
tramadol 50 mg tablet 50 mg PO DAILYPRN PRN pain 04/29/19 11/29/20 History
Cholecalciferol (Vitamin D3) 50 mcg PO DAILY Supplement 08/09/20 11/29/20 History
[Vitamin D3]
Konsyl Daily Fiber 28.3% Packet 1 tsp PO DAILY Supplement 08/09/20 11/29/20 History
Systane Eye Drops 1 drp BOTH EYES TID Eye condition 08/09/20 11/29/20 History
agddnwsc-ptnu-etus 8 mg-folic 400 1 ea PO NOON Supplement 08/09/20 11/29/20 History
mcg-K 50 mcg-lutein 300 mcg tablet
(Centrum Silver Women)
pitavastatin calcium 2 mg tablet 2 mg PO Q48H High cholesterol 08/09/20 11/29/20 History
(Livalo)
vit C 250 mg-vit E 90 mg-zinc 40 1 ea PO BID Supplement 08/09/20 11/29/20 History
mg-copper 1 nm-xthnlh-usxalk
capsule (PreserVision AREDS-2)
Citracal Calcium 1 tab PO BID Supplement 11/29/20 History
levothyroxine 100 mcg tablet 150 mcg PO DAILY Thyroid 11/29/20 03/11/24 History
Gemtesa 75 mg PO DAILY Urinary Issue 03/12/24 03/12/24 History
aspirin 81 mg chewable tablet 81 mg PO DAILY Blood Clot 03/12/24 03/11/24 History
Prevention/Tx
atorvastatin 10 mg tablet 10 mg PO DAILY 03/12/24 03/12/24 History
Review of Systems
-
History Source: Patient
All other systems: Negative unless noted
Cardiac: Palpitations
Musculoskeletal: Joint Pain
Physical Exam
Vital Signs
Temp Pulse Resp BP Pulse Ox
98.6 F 127 18 111/96 96
03/13/24 07:05 03/13/24 09:00 03/13/24 06:45 03/13/24 09:00 03/13/24 06:45
Lab Results
03/13/24 04:54
03/13/24 04:54
Troponin I 0.020 ng/ml 03/12/24 18:14
Physical Exam
General: Well Developed and Well Nourished
HEENT: Normocephalic and Anicteric
Respiratory: Clear and Non Labored Respirations
Cardiac: S1/S2 (normal), Irregular Rhythm (tachy), Murmur (none) and Peripheral Edema (none)
Musculoskeletal: No Clubbing, No Cyanosis and No Edema
Skin: Warm and Dry
Neuro: AO x 3
Psych: Calm
Impression / Plan
-
88 yo female with PMH of paroxysmal A fib, s/p Watchman 2020, HTN, hyperlipidemia is admitted following mechanical fall and bilateral tibial fractures. We are consulted for A fib with RVR.
# A fib with RVR
-h/o paroxysmal A fib on flecainide and coreg: continue
-now with recurrence with severely elevated rates 03/12 PM, requiring diltiazem drip and tele
-continue diltiazem drip
-CHADS2-VASC = 4. s/p Watchman #27 Flex 2020. Maintained on ASA 81mg daily/
-ERLINDA 2020: EF 55-60%, #27 Flex with no leak or thrombus
-if remains in rapid A fib, will plan for DCCV in AM
# Tibial fractures
-managed by ortho
-non-surgical
# HTN
-monitor on diltiazem drip
-cont coreg 12.5mg bid
# Hyperlipidemia
-stable, continue statin
Data Reviewed
-
EKG: Other (Tele: A fib with RVR)
Labs: Labs Reviewed by me
--- NOTE | 2024-03-13 10:10 | W.PN.ORTHO ---
Today's Communication / Plan
-
B/L proximal tibia fractures.
-Knee immobilizers equipment service engineer.
-TTWB B/L LE.
-Lives alone so will need extended rehab stay due to current limitations in weight bearing.
-F/u in outpatient office in 2 weeks for repeat x-rays taken in office.
-Ortho to sign off for now. Please re-engage with any further questions.
Assessment
.
Distal Motor Intact: Yes
Assessment:
B/L proximal tibia fractures.
-Knee immobilizers equipment service engineer.
-TTWB B/L LE.
-Lives alone so will need extended rehab stay due to current limitations in weight bearing.
-F/u in outpatient office in 2 weeks for repeat x-rays taken in office.
-Ortho to sign off for now. Please re-engage with any further questions.
Plan
.
Discharge Plan: SNF
Subjective
.
.:
Patient resting comfortably with knee immobilizers in place. No pain if not weight bearing.
Vital Signs and Labs
.
Vital Signs and Labs:
Lab Results
03/13/24 04:54
03/13/24 04:54
Temp Pulse Resp BP Pulse Ox
98.6 F 127 18 111/96 96
03/13/24 07:05 03/13/24 09:00 03/13/24 06:45 03/13/24 09:00 03/13/24 06:45
PT 15.8 Sec (11.4-14.6) H 03/12/24 18:14
INR 1.23 03/12/24 18:14
Physical Exam
-
Right knee: TTP over anterior tibia and medial and lateral tibial plateaus. Mild effusion. Healing abrasions. N/v intact distally.
Left knee: TTP over anterior tibia. Mild effusion. Healing abrasions. N/v intact distally.
[2024-03-13] MEDS: TAMBOCOR 50 MG PO ×2 (12:52→23:08)
[2024-03-13] MEDS: LOVENOX 40 MG SC (16:25)
--- NOTE | 2024-03-13 18:42 | PTCARENOTE ---
Recd pt this AM. Pt remains on bedrest, complained of minimal pain. No urine this shift 280 on last bladder scan. Eating and drinking OK. HR improving to low 100s on 15mg Cardizem drip.
[2024-03-13] MEDS: TYLENOL 650 MG PO (20:56)
[2024-03-13] MEDS: NSS 500 IV (23:03)
[2024-03-13] MEDS: RESTORIL 15 MG PO (23:08)
--- NOTE | 2024-03-13 23:20 | PTCARENOTE ---
CT scan obtained with contrast, pt with history of left nephrectomy. 500cc IV bolus discussed with LIZZIE Hollis. Refer to MAR. pt updated. pt appreciative of care. CB within reach.
[2024-03-14] VITALS (16 sets, daily range): BP systolic 88–158; BP diastolic 43–146; PULSE 81; O2SAT 97
[2024-03-14] MEDS: CARDIZEM 125 IV (05:02)
[2024-03-14 05:18] LABS: Hematocrit 35.1 % (37.0-47.0); Hemoglobin 11.8 g/dL (12.0-16.0); Mean Corp Hgb Conc. 33.6 g/dL (33.0-37.0); Mean Corpuscular Hgb 29.6 pg (27.0-31.0); Mean Platelet Volume 11.2 fL (7.4-10.4); Platelet Count 126 10^3/uL (130-400); Red Blood Cell Count 3.99 10^6/uL (4.20-5.40); White Blood Cell Count 7.5 10^3/uL (4.8-10.8)
[2024-03-14] MEDS: REFRESH CELLUVISC GEL 1 DROPS BOTH EYES ×3 (05:28→21:19)
[2024-03-14] MEDS: SYNTHROID 150 MCG PO (05:29)
[2024-03-14 05:39] LABS: Blood Urea Nitrogen 23 mg/dl (7-17); Carbon Dioxide 23 mmol/L (22-30); Chloride 105 mmol/L (98-107); Estimated Creatinine Clearance 32 ml/min; Glucose 104 mg/dl (70-99); Potassium 4.1 mmol/L (3.5-5.1); Sodium 135 mmol/L (135-145); eGFR 54.19
[2024-03-14] MEDS: TYLENOL 650 MG PO (05:44)
[2024-03-14] MEDS: ULTRAM 50 MG PO (05:45)
--- NOTE | 2024-03-14 07:08 | PTCARENOTE ---
Patient unable to void on bedpan. Bladder scan showing >800cc. LIZZIE Hollis made aware. Nava catheter placed for retention.
PRN Tylenol & Tramadol for LE pain. Repositioned throughout the night.
CB and tray table within reach.
[2024-03-14] MEDS: LOW STRENGTH ASPIRIN 81 MG PO (08:29)
[2024-03-14] MEDS: PROTONIX 40 MG PO (08:29)
--- NOTE | 2024-03-14 08:31 | W.PN.CD ---
Addendum entered and electronically signed by Raman Huitron MD 03/17/24 12:45:
Given prior falls with bleeding, now admitted with another fall, and also elevated bleeding risk due to age; recurrence of A fib with RVR for under 48 hrs; Watchman in place; I recommended that we proceed with DCCV without anticoagulation.
Original Note:
Today's Communication / Plan
-
hold coreg this AM, and assess to resume post DCCV
DCCV this AM
Impression / Plan
-
88 yo female with PMH of paroxysmal A fib, s/p Watchman 2020, HTN, hyperlipidemia is admitted following mechanical fall and bilateral tibial fractures. We are consulted for A fib with RVR.
# A fib with RVR
-h/o paroxysmal A fib on flecainide as outpatient: continue
-now with recurrence with severely elevated rates 03/12 PM, requiring diltiazem drip and tele
-continue diltiazem drip
-CHADS2-VASC = 4. s/p Watchman #27 Flex 2020. Maintained on ASA 81mg daily
-ERLINDA 2020: EF 55-60%, #27 Flex with no leak or thrombus
-hold coreg this AM, and assess to resume post DCCV
-DCCV this AM
# Tibial fractures
-managed by ortho
-non-surgical
# HTN
-monitor on diltiazem drip
-assess to resume coreg post DCCV
# Hyperlipidemia
-stable, continue statin
Physical Exam
Vital Signs/Labs
Vital Signs
Temp Pulse Resp BP Pulse Ox
98.1 F 102 24 97/55 97
03/14/24 07:22 03/14/24 06:00 03/14/24 06:00 03/14/24 06:00 03/14/24 06:00
03/14/24 04:57
03/14/24 04:57
PT 15.8 Sec (11.4-14.6) H 03/12/24 18:14
INR 1.23 03/12/24 18:14
APTT 42.6 Sec (23.4-35.0) H 03/12/24 18:14
LAB Results
03/12/24
18:14
Troponin I 0.020
Physical Exam
Constitutional: No acute distress
EENT: Moist mucous membranes
Cardiovascular: Pedal edema is absent, JVD pressure is normal, Systolic murmur absent and Rhythm/rate is irregular
Respiratory: Respiratory effort normal and Lungs clear to auscul.
Neuro/Psych: AO x 3
Data Reviewed
-
Date of Service: March 14, 2024
EKG: Other (Tele: A fib 100-110)
Labs: Labs Reviewed by me
--- NOTE | 2024-03-14 09:34 | W.PN.HOSP.TC ---
Addendum entered and electronically signed by Ramirez Thomas MD 03/18/24 12:55:
#Osteoporosis should read as Osteoarthritis
Original Note:
Today's Communication/Plan
-
Cardioversion
Head CT
Discharge planning- Needs Rehab.
Assessment / Plan
Assessment / Plan
88-year-old female presented with a fall. She tripped and fell while walking to an apartment
RIGHT knee MRI
1. Comminuted nondisplaced/nondepressed proximal tibia fracture as described.
2. Medial meniscus tearing as described.
3. Tricompartmental osteoarthritis.
4. Moderate suprapatellar joint effusion with lipohemarthrosis.
LEFT knee xray
Findings suggesting a new nondisplaced fracture of the anterior proximal left tibia. See above.
Mild tricompartmental osteoarthritis. Stable.
Mild medial and lateral compartment chondrocalcinosis. New
CT PE study-no PE. Mild dependent left pleural fluid. Bronchiectasis and chronic atelectasis of the right middle lobe. Increase in the patchy groundglass opacities within both lungs suggestive of atelectasis or groundglass pneumonitis. Enlarged
right hilar lymph node. Enlarged subcarinal and right is echo esophageal lymph node.

On examination patient is awake alert
Bilateral knee immobilizers
No sensorimotor deficits in the lower extremities
Cardiovascular system S1-S2 regular
Chest clear to auscultation
Abdomen soft and nontender
# Bilateral nondisplaced proximal tibial fracture
Mechanical fall
-Initial left knee x-ray in ER showing nondisplaced fracture of anterior proximal left tibia
-Left knee immobilizer has been placed
-Ortho evaluated in the morning and no surgical indication
-Toe-touch weightbearing allowed on left lower extremity
-As patient was having right knee pain, a follow-up MRI done today showing nondisplaced proximal tibial fracture of right leg as well
-Orthopedic surgery recommended for right knee to be immobilized as well with toe-touch weightbearing only
-Eventually will require rehab placement once medically cleared
-At high risk for DVT as patient will be more or less bedbound for 4-6 weeks. started Lovenox for DVT PPX.
#Paroxysmal atrial fibrillation with rapid ventricular rate
Status post Watchman device
-03/12 evening patient went into RVR with heart rate in 190-200 range, patient asymptomatic at that time, rapid response was called
-Patient started on Cardizem drip and moved to IMU currently on maximal dose of 15 mg/h
-Oral Coreg added as well
-Continue home dose of flecainide
-Cardiology considering for patient to be cardioverted today
#Forehead laceration- Left eyebrow. Will get Head CT. Steristrips in place
#Mild thrombocytopenia-follow
#Mild hyponatremia-better
#Urinary retention-Nava catheter in place. Voiding trial tomorrow
#Hypertension-Maximize rate control medication. hold other BP meds.
#Bronchiectasis
#GERD-Continue Protonix
#Hyperlipidemia-Continue statin
#Hypothyroidism-. History of Hernán's thyroiditis-continue levothyroxine
#Enlarged lymph nodes-needs outpatient pulmonary follow-up
#History of surgery for pulmonary nodule
#History of neuropathy
#Sensorineural hearing loss
#Osteoporosis
#Spinal stenosis
#History of hysterectomy
#History of parathyroid node resection
#History of left nephrectomy for malignancy
#Full code
#DVT prophylaxis�Lovenox
Discussed with nursing at bedside
Time over 50 min
Anticipated Discharge: Within 24 hours
Subjective/Interval History
-
Date of Service: March 14, 2024
Objective Data
-
Labs:
Laboratory Results
01/27/25
04:57
WBC 7.5
Hgb 11.8 L
Hct 35.1 L
Plt Count 126 L
Sodium 135
Potassium 4.1
Chloride 105
Carbon Dioxide 23
BUN 23 H
Creatinine 1.0
Glucose 104 H
Calcium 8.0 L
Vital Signs:
Vital Signs
Temp Pulse Resp BP Pulse Ox
98.1 F 102 24 97/55 97
03/14/24 07:22 03/14/24 06:00 03/14/24 06:00 03/14/24 06:00 03/14/24 06:00
I&O
03/13/24 03/14/24 03/15/24
06:59 06:59 06:59
Intake Total 660 / 660 500 / 500
Output Total 975 / 975 650 / 650
Balance -315 / -315 -150 / -150
--- NOTE | 2024-03-14 10:36 | CM ---
Patient with Hx Mechanical fall with Dx bilateral nondisplaced proximal tibial fracture. Plan cardioversion today. O2 2L. Receiving Cardizem gtt, tramadol prn. Left knee immobilizer. TTWB B/L LE.
Received phone call from patient's son Vasquez Nettles (home [phone], cell [phone]);
extensive conversation for d/c planning. Son says he is hoping patient can go to [facility] where patient went before, and he says his mother would be agreeable. He is also receptive to [facility]. Son also wanted to discuss possible SNFs;
discussed [facility], [facility], [facility], [facility], [facility], and provided [facility] ratings.
Spoke with [facility] (cell [phone]); she will consider this patient. Agree to make referral once PT/OT Evals are available.
Message to [facility] [employer] [facility] requesting PT/OT Evals and Physiatry Consult.
Plan follow up after seen by PT/OT/Physiatry.
[2024-03-14] MEDS: TAMBOCOR 50 MG PO ×2 (13:33→23:16)
[2024-03-14] MEDS: LOVENOX 40 MG SC (17:56)
--- NOTE | 2024-03-14 19:38 | PTCARENOTE ---
Rec'd pt this AM. 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 Now NSR. Resting comfortably. vital signs stable.
[2024-03-14] MEDS: COREG 12.5 MG PO (21:18)
[2024-03-14] MEDS: RESTORIL 15 MG PO (21:19)
[2024-03-14] MEDS: ANESTHETIC LOZENGE 1 LOZENGE PO (21:21)
[2024-03-14] MEDS: SENOKOT 8.6 MG PO (23:15)
[2024-03-14] MEDS: COLACE 100 MG PO (23:15)
[2024-03-15] VITALS (13 sets, daily range): BP systolic 13–137; BP diastolic 45–73; PULSE 80; O2SAT 91
--- NOTE | 2024-03-15 00:09 | PTCARENOTE ---
Received pt from day shift RN. Pt aaox3, NAVAJO. NSR on monitor, hr 80s. 97% on 2L. VSS. Nava in place draining yellow urine. Pt c/o an occasional cough and a 'tickle' in her throat. Notified MARII Castellanos and received Rx for a lozenge. Pt resting in
bed with call zhao in reach.
[2024-03-15] MEDS: SYNTHROID 150 MCG PO (04:52)
[2024-03-15 05:07] LABS: Hematocrit 30.7 % (37.0-47.0); Hemoglobin 10.5 g/dL (12.0-16.0); Mean Corp Hgb Conc. 34.2 g/dL (33.0-37.0); Mean Corpuscular Hgb 29.6 pg (27.0-31.0); Mean Corpuscular Volume 86.5 fL (81.0-99.0); Mean Platelet Volume 11.1 fL (7.4-10.4); Platelet Count 142 10^3/uL (130-400); Red Blood Cell Count 3.55 10^6/uL (4.20-5.40); Red Cell Dist. Width 12.9 % (11.5-14.5); White Blood Cell Count 6.8 10^3/uL (4.8-10.8)
[2024-03-15 06:04] LABS: Blood Urea Nitrogen 20 mg/dl (7-17); Calcium 8.1 mg/dl (8.4-10.2); Carbon Dioxide 23 mmol/L (22-30); Chloride 104 mmol/L (98-107); Estimated Creatinine Clearance 36 ml/min; Glucose 101 mg/dl (70-99); Potassium 4.3 mmol/L (3.5-5.1); Sodium 134 mmol/L (135-145); eGFR > 60.00
--- NOTE | 2024-03-15 06:50 | W.PN.UPDATE ---
Addendum entered and electronically signed by Joselito Mtz MD 03/17/24 07:50:
Note that the cardioversion had been performed after discussion with Dr Huitron and also review with the patient. Due to the complexities of the case, fast rates of rhythm with challenges of management, limited time of atrial arrhythmia and concern
regarding anticoagulation risks, cardioversion performed. Procedure and riska reviewed and consent obtained.
.
Original Note:
Update Note
Progress Note Update
03/14/24
Cardioversion - atrail flutter vs atrial tacycardia to sinus rhythm. Full report to follow
[2024-03-15] MEDS: PROTONIX 40 MG PO (07:15)
[2024-03-15] MEDS: COLACE 100 MG PO ×2 (07:15→20:03)
[2024-03-15] MEDS: COREG 12.5 MG PO ×2 (07:16→20:03)
[2024-03-15] MEDS: REFRESH CELLUVISC GEL 1 DROPS BOTH EYES ×3 (07:16→21:45)
[2024-03-15] MEDS: LOW STRENGTH ASPIRIN 81 MG PO (07:16)
--- NOTE | 2024-03-15 08:21 | PTCARENOTE ---
Patient received from shift stacker. Patient resting comfortably in bed. AAO, VSS. No events noted overnight. No complaints of pain at this time. Currently on 1L N/C, will attempt to wean off. B/L leg immobilizers in place. Patient scheduled
for CT this AM. Call zhao in reach.
--- NOTE | 2024-03-15 09:12 | CON.MD ---
Consultation - Medical
-
Referring Provider:�Dr. Ramirez Thomas
Chief Complaint:�Debility after fall
�
History of Present Illness:�88-year-old female with PMH (as below) presented to [facility] on 03/11/2024 with a trip and fall walking to an appointment. She was found to have a bilateral proximal tibia fracture for which she is toe-touch
weightbearing bilaterally and a forehead laceration. Hip x-rays were negative for acute fracture. Also with significant tachycardia and hypoxia with concern for pulmonary embolism. Echocardiogram with EF 55-60%. Had a cardioversion on 03/14/2024
to sinus rhythm from atrial flutter versus atrial tachycardia.
�
Past Medical History:�paroxysmal atrial fibrillation, bronchiectasis hypertension, GERD, hypercholesterolemia
Procedure History:�. Watchman 2020
Family History:�Denies
�
Social History:�
Functional Level Premorbidly:�Modified independent with cane with all activities�
Functional Level Currently:�Mod assist bed mobility.
�
Tobacco:�Denies�
Alcohol:�Denies�
Drug use:�Denies�
�
Lives with:�Alone
24-hour assistance available:�
Number of floors:�1, elevator access
# steps to enter:�1
Driving:�
Occupation:�
�
�
Allergies:�
Allergy/AdvReac Type Severity Reaction Status Date / Time
adhesive tape Allergy sensitive Verified 03/11/24 15:32
skin
chlorpheniramine Allergy taken from Verified 03/11/24 15:32
primary
follow up
visit
oxycodone Allergy taken from Verified 03/11/24 15:32
primary
follow up
visit
phenylephrine Allergy taken from Verified 03/11/24 15:32
primary
follow up
visit
rosuvastatin Allergy taken from Verified 03/11/24 15:32
primary
follow up
visit
silver sulfadiazine Allergy taken from Verified 03/11/24 15:32
primary
follow up
visit
methylscopolamine Allergy taken from Uncoded 03/11/24 15:32
primary
follow up
visit
�
Review of Systems:�
Constitutional: (x) abNormal _fatigue
Eye: (x) Normal _
Ear/Nose/Throat: (x) Normal _
Respiratory: (x) Normal _
Cardiovascular: (x) Normal _
Gastrointestinal: (x) Normal _
Genitourinary: (x) Normal _
Musculoskeletal: (x) abNormal _bilateral knee pain
Integumentary: (x) Normal _
Neurologic: (x) Normal _
Psychiatric: (x) Normal _
Endocrine: (x) Normal _
Hematologic/Lymphatic: (x) Normal _
Allergic/Immunologic: (x) Normal _
�
Medications:�
Active Current Visit Medication List
Category Date Time Status
Acetaminophen [Tylenol] Med 03/11/24 21:32 Active
650 mg PO Q4HPRN PRN
Aspirin Chewable [Low Strength Aspirin] Med 03/12/24 09:00 Active
81 mg PO DAILY
Benzocaine/Menthol [Anesthetic Lozenge] Med 03/14/24 21:11 Active
1 lozenge PO Q4HPRN PRN
Carboxymethylcellulose [Refresh Celluvisc Gel] Med 03/12/24 00:00 Active
1 drops BOTH EYES TID
Carvedilol [Coreg] Med 03/12/24 08:00 Active
12.5 mg PO BID
Docusate Sodium [Colace] Med 03/14/24 22:00 Active
100 mg PO BID
Enoxaparin Sodium [Lovenox] Med 03/13/24 18:00 Active
40 mg SC QPM
Flecainide [Tambocor] Med 03/12/24 12:00 Active
50 mg PO Q12H
Flush (0.9% Sodium Chloride) [Flush (Nss)] Med 03/11/24 22:00 Active
See Dose Instructions IV PER PROTOCOL
Levothyroxine [Synthroid] Med 03/12/24 06:00 Active
150 mcg PO DAILY@0600
Ondansetron Injectable [Zofran] Med 03/11/24 21:32 Active
4 mg IV Q6HPRN PRN
Oxycodone [Roxicodone] Med 03/11/24 21:32 Active
5 mg PO Q4HPRN PRN
Pantoprazole [Protonix] Med 03/12/24 08:00 Active
40 mg PO DAILY
Temazepam [Restoril] Med 03/12/24 00:01 Active
15 mg PO HS
Tramadol HCl [Ultram] Med 03/11/24 21:32 Active
50 mg PO Q6HPRN PRN
�
Vitals:�
Temp Pulse Resp BP Pulse Ox
99.7 F 80 25 106/54 95
03/15/24 07:11 03/15/24 07:16 03/15/24 06:00 03/15/24 07:16 03/15/24 06:00
Height 5 ft 3 in
Actual Weight 67.948 kg
Body Mass Index (BMI) 26.5
�
Physical Exam:�
General Appearance/Observation: Well-developed, well-nourished female in no apparent distress.�
Pain/Comfort Assessment: Moderate pain
Mood/Affect: Appropriate�
�
Integumentary/Operative Site:�Aquacel over both knees
�� Pressure Ulcer Evaluation: absent over heels.�
�
Eyes: Conjunctiva/Lids: normal���� Pupils: pupils equal round and reactive to light and Accommodation�
Ears/Nose/Throat: oral mucosa moist,� throat clear.������������ Lips/Teeth/Gums: normal�
Cardiovascular: Heart: regular, no murmur�
Pulses: dorsalis pedis 2+ bilaterally�
Respiratory: Respiratory Effort/Chest Expansion: normal������� Auscultation: Clear to auscultation bilaterally�
Gastrointestinal: abdomen not tender, no distension, normal abdominal bowel sounds
Genitourinary: No Nava�
Extremities:�Edema: None�Cyanosis: None�Trophic�changes: None
�
Neurology Exam:
Orientation: Alert, Oriented to self, Time, Place�
Memory: Intact
Comprehension: Intact
Two step command: Intact
Cranial Nerves:
�� CNII:�Pupillary light reflex: Intact���
�� CN III, IV, : Extraocular muscles: Intact�
�� CN VII:�Facial movement: Symmetric
�� CN VIII:�Hearing: Normal
�� CN IX/X:�Speech & swallow: Normal,�Position of Uvula: Midline
�� CN XI:�Shoulder shrug: Symmetric
�� CN XII:�Tongue protrusion: Midline
Sensory:
�� Light touch: Intact in bilateral upper and lower extremities
Cerebellar: Dysmetria/Ataxia: None�
Musculoskeletal: Motor: (Manual muscle scale 0-5)�
Muscle SA EF WE EE FF FA HF KE DF EHL PF
Right� 2 5 5 5 NT NT 5 5 5
Left 3+ 5 5 5 NT NT 5 5 5
�
Tone: Normal in all extremities�
Range of Motion: Decreased range of motion right more than left shoulder. Left knee range of motion deferred in knee immobilizer
�
Lab Results
Laboratory Data
03/15/24 04:56
03/15/24 04:56
PT 15.8 Sec (11.4-14.6) H 03/12/24 18:14
INR 1.23 03/12/24 18:14
APTT 42.6 Sec (23.4-35.0) H 03/12/24 18:14
Total Bilirubin 0.5 mg/dl (0.2-1.3) 03/12/24 18:14
AST 29 U/L (14-36) 03/12/24 18:14
ALT 18 U/L (0-35) 03/12/24 18:14
Alkaline Phosphatase 75 U/L (38-126) 03/12/24 18:14
Total Protein 6.5 g/dl (6.3-8.2) 03/12/24 18:14
Albumin 3.8 g/dl (3.5-5.0) 03/12/24 18:14
�
Diagnostic Results:�as per HPI�
�
Assessment
88 y/o F PMH (paroxysmal atrial fibrillation, bronchiectasis hypertension, GERD, hypercholesterolemia�) with 03/11/2024 bilateral proximal tibia fracture for which she is toe-touch weightbearing bilaterally with ADL and ambulatory dysfunction.
�
Plan�
PM&R�PT/OT to increase independence with ADLs, improve balance, coordination, endurance, strength, mobility, community reintegration, decreased burden of care on others and family education.�
�
Bilateral proximal tibial fractures: Toe-touch weightbearing bilaterally limiting mobility. Will need wheelchair mobility until cleared by orthopedics.
HTN: Carvedilol, monitor closely�
HLD: Not on medication
Atrial fibrillation:�Not on anticoagulation and rate control on carvedilol.�������������������������������������������
Hypothyroidism: levothyroxine�
Postoperative anemia: monitor.�
Pain: acetaminophen or oxycodone as needed.�
Bowel: Colace and Senna, PRN bisacodyl.�
Bladder: Time void, PVRs, PRN straight cath.�
GI Prophylaxis: Pantoprazole�
DVT Prophylaxis: Mechanical and Lovenox
Pulmonary: Incentive spirometry�
Safety: Continue to reinforce assistance with all transfers.�
Code Status:� Full code
Dispo�(date/plan/equipment needs): Home with family care.� Social history reviewed.�
Functional and Medical Goals:�Modified Independent with ADL�s, ambulation, transfers�
Discharge Destination:�SNF, patient will not be able to manage at home with toe-touch weightbearing on both knees and knee immobilizers. 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 Will benefit most
from intermediate facility until she is able to weight-bear through at least one of the legs in order to get back home. Discussed with therapy as well.
A total of 60 minutes were spent with the patient preparing for the evaluation, obtaining history, performing examination and evaluation, counseling, data review, case management, care coordination, enrobing machine corder, and EMR documentation.
Thank you for allowing me to care for your patient. Please contact me with any questions or concerns.
--- NOTE | 2024-03-15 09:17 | PN.CDI ---
CDI
- -
CDI:
Physician Documentation Request
Admit Date: 03/11/24 20:22
Dear Doctor Martha,
Patient admitted with bilateral nondisplaced proximal tibial fractures.
H&P,'....presenting with trip and fall while walking to an appointment.
03/14 PN, 'Bilateral nondisplaced proximal tibial fracture.... Mechanical fall....Osteoporosis.'
Patient's home med's include Cholecalciferol.
Please provide in your note the likely etiology/ etiologies of bilateral nondisplaced proximal tibial fractures:
Multifactorial due to low level mechanical fall and age-related osteoporosis
Low level mechanical fall only
Other
Use of terms such as suspected, likely, concern for, or probable (associated with a specific diagnosis that is being evaluated, monitored, or treated as if it exists) are acceptable and can be coded in the inpatient setting, when documented at the
time of discharge.
Thank you,
Love BROWER,RN,CCDS
CDI Specialist
Available via [employer] text
Please use your independent medical judgment in providing your response.
--- NOTE | 2024-03-15 09:34 | W.PN.CD ---
Today's Communication / Plan
-
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 Farrar
Cardiology will sign off. Please call with questions.
Impression / Plan
-
88 yo female with PMH of paroxysmal A fib, s/p Watchman 2020, HTN, hyperlipidemia is admitted following mechanical fall and bilateral tibial fractures. We are consulted for A fib with RVR.
A fib => AFlutter with RVR
- In sinus w/o bradycardia overnight
- No clear guidelines on DCCV w/ Watchman w/o anticoagulation
- Small series have gone well in the literature
- Continue Flec/Coreg
- ASA + Watchman
- CHADS2-VASC = 4. s/p Watchman #27 Flex 2020. Maintained on ASA 81mg daily
Tibial fractures
HTN, well controlled, continue current meds
Hyperlipidemia, continue statin
Subjective:
No CP or palps.
Data:
ERLINDA 2020: EF 55-60%, #27 Flex with no leak or thrombus
Physical Exam
Vital Signs/Labs
Vital Signs
Temp Pulse Resp BP Pulse Ox
99.7 F 80 25 106/54 95
03/15/24 07:11 03/15/24 07:16 03/15/24 06:00 03/15/24 07:16 03/15/24 06:00
03/15/24 04:56
03/15/24 04:56
PT 15.8 Sec (11.4-14.6) H 03/12/24 18:14
INR 1.23 03/12/24 18:14
APTT 42.6 Sec (23.4-35.0) H 03/12/24 18:14
Magnesium 2.0 mg/dl (1.6-2.3) 03/15/24 04:56
LAB Results
03/12/24
18:14
Troponin I 0.020
Physical Exam
Constitutional: No acute distress
EENT: Anicteric
Cardiovascular: Rhythm & rate is regular and Pedal edema is absent
Respiratory: Respiratory effort normal and Lungs clear to auscul.
GI: Soft and Distention absent
Neuro/Psych: AO x 3
Data Reviewed
-
Date of Service: March 15, 2024
--- NOTE | 2024-03-15 10:19 | CM ---
Addendum entered by Margo Phillips RN 03/15/24 14:49:
Physiatry Eval pending.
Spoke with patient; she wanted to discuss considerations for going to acute rehab vs SNF. She is aware that we are waiting for [facility] to decide if they can accept. Discussed possible SNF options of [facility] or [place]. She will speak
with her son Vasquez about rehab choices.
Spoke with [facility]; the case is being reviewed.
Spoke with Mary Azul [facility] SNF; they will review the referral.
Plan follow up with [facility] and SNFs.
Original Note:
Patient with Hx Mechanical fall with Dx bilateral nondisplaced proximal tibial fracture, s/p cardioversion yesterday to SR. Head CT today. O2 2L. Left knee immobilizer. TTWB B/L LE. PT recommends acute rehab. OT & Physiatry Evals pending.
Received phone call from son Vasquez;
provided update that patient was seen by PT and we are awaiting OT & Physiatry to evaluate.
He spoke with the Adms Coor at [facility] in the hopes they would accept his mother again.
Son states that if she cannot go to acute rehab his SNF preferences are [facility], [facility], [facility] & [facility].
Plan follow up after seen by Physiatry.
--- NOTE | 2024-03-15 11:48 | W.PN.HOSP.TC ---
Addendum entered and electronically signed by Ramirez Thomas MD 03/18/24 12:56:
#Osteoporosis should read as Osteoarthritis
Original Note:
Today's Communication/Plan
-
Voiding trial in the morning after constipation addressed
Discharge planning, Possible tomorrow
Physiatry evaluation awaited
Assessment / Plan
Assessment / Plan
88-year-old female presented with a fall. She tripped and fell while walking to an apartment
RIGHT knee MRI
1. Comminuted nondisplaced/nondepressed proximal tibia fracture as described.
2. Medial meniscus tearing as described.
3. Tricompartmental osteoarthritis.
4. Moderate suprapatellar joint effusion with lipohemarthrosis.
LEFT knee xray
Findings suggesting a new nondisplaced fracture of the anterior proximal left tibia. See above.
Mild tricompartmental osteoarthritis. Stable.
Mild medial and lateral compartment chondrocalcinosis. New
CT PE study-no PE. Mild dependent left pleural fluid. Bronchiectasis and chronic atelectasis of the right middle lobe. Increase in the patchy groundglass opacities within both lungs suggestive of atelectasis or groundglass pneumonitis. Enlarged
right hilar lymph node. Enlarged subcarinal and right is echo esophageal lymph node.
Head CT-There are no focal or acute intracranial abnormalities.There is mild diffuse cortical and cerebellar atrophy

On examination patient is awake alert
No sensorimotor deficits in the lower extremities
Cardiovascular system S1-S2 regular
Chest clear to auscultation
Abdomen soft and nontender
Bilateral knee immobilizers
# Bilateral nondisplaced proximal tibial fracture
Mechanical fall
Initial left knee x-ray in ER showing nondisplaced fracture of anterior proximal left tibia
Left knee immobilizer has been placed
Ortho evaluated in the morning and no surgical indication
Toe-touch weightbearing allowed on left lower extremity
As patient was having right knee pain, a follow-up MRI done today showing nondisplaced proximal tibial fracture of right leg as well
Orthopedic surgery recommended for right knee to be immobilized as well with toe-touch weightbearing only
Eventually will require rehab placement once medically cleared
At high risk for DVT as patient will be more or less bedbound for 4-6 weeks. started Lovenox for DVT PPX.
#Paroxysmal atrial fibrillation with rapid ventricular rate
Status post Watchman device
03/12 evening patient went into RVR with heart rate in 190-200 range, patient asymptomatic at that time, rapid response was called
Status post ERLINDA cardioversion 03/14/2024.
Continue Coreg 12.5 twice daily and Tambocor 50 mg every 12
#Forehead Laceration - Left eyebrow. No acute changes on Head CT. Steristrips in place
#Mild Thrombocytopenia- Resolved
#Constipation-Bowels regimen ordered
#Mild Hyponatremia-Better
#Urinary Retention-Nava Catheter in place. Voiding trial .
#Hypertension-Coreg
#Bronchiectasis
#GERD-Continue Protonix
#Hyperlipidemia-Continue statin
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
#Enlarged lymph nodes-Chest -Needs outpatient pulmonary follow-up
#History of surgery for pulmonary nodule
#History of neuropathy
#Sensorineural hearing loss
#Osteoporosis
#Spinal Stenosis
#History of Hysterectomy
#History of Parathyroid node resection
#History of Left nephrectomy for malignancy
#Full code
#DVT prophylaxis�Lovenox
Discussed with nursing at bedside
D/W Cards
D/W Case management-physiatry evaluation awaited
Spoke to patient's son who is listed as a contact. He had several questions all answered to the best of my ability.
Anticipated Discharge: Within 24 hours
Subjective/Interval History
-
Date of Service: March 15, 2024
Objective Data
-
Labs:
Laboratory Results
03/15/24
04:56
WBC 6.8
Hgb 10.5 L
Hct 30.7 L
Plt Count 142
Sodium 134 L
Potassium 4.3
Chloride 104
Carbon Dioxide 23
BUN 20 H
Creatinine 0.9
Glucose 101 H
Calcium 8.1 L
Vital Signs:
Vital Signs
Temp Pulse Resp BP Pulse Ox
99.7 F 80 23 94/73 92
03/15/24 07:11 03/15/24 10:00 03/15/24 10:00 03/15/24 10:00 03/15/24 10:23
I&O
03/14/24 03/15/24 03/16/24
06:59 06:59 06:59
Intake Total 500 / 500
Output Total 650 / 650 400 / 400
Balance -150 / -150 -400 / -400
[2024-03-15] MEDS: MILK OF MAGNESIA 30 ML PO (12:21)
[2024-03-15] MEDS: MIRALAX 17 GRAMS PO (12:21)
[2024-03-15] MEDS: TAMBOCOR 50 MG PO ×2 (12:21→23:07)
[2024-03-15] MEDS: SENOKOT 17.2 MG PO ×2 (12:21→20:03)
--- NOTE | 2024-03-15 12:45 | PTCARENOTE ---
Report called to [facility]
--- NOTE | 2024-03-15 13:15 | PTCARENOTE ---
Telephone report received from IMU RN Vivek, patient arrived on stretcher on telemetry and with belongings; VSS, [facility] first calender worker placed on patient with normal sinus rhythm.
[2024-03-15] MEDS: ROBITUSSIN 200 MG PO ×3 (13:25→21:47)
[2024-03-15] MEDS: LOVENOX 40 MG SC (17:06)
[2024-03-15] MEDS: CITROMA 150 ML PO (18:26)
[2024-03-15] MEDS: RESTORIL 15 MG PO (21:47)
[2024-03-16 03:15] VITALS: BP 127/60
[2024-03-16] MEDS: SYNTHROID 150 MCG PO (05:02)
[2024-03-16 07:05] VITALS: BP 132/64
[2024-03-16] MEDS: REFRESH CELLUVISC GEL 1 DROPS BOTH EYES ×3 (08:41→22:09)
[2024-03-16] MEDS: LOW STRENGTH ASPIRIN 81 MG PO (08:41)
[2024-03-16] MEDS: PROTONIX 40 MG PO (08:41)
[2024-03-16] MEDS: ROBITUSSIN 200 MG PO ×4 (08:41→22:09)
[2024-03-16] MEDS: MIRALAX PO (08:41)
[2024-03-16] MEDS: COLACE PO ×2 (08:41→20:50)
[2024-03-16] MEDS: SENOKOT PO ×2 (08:41→20:50)
[2024-03-16] MEDS: COREG 12.5 MG PO ×2 (08:43→20:44)
--- NOTE | 2024-03-16 10:41 | W.PN.HOSP.TC ---
Addendum entered and electronically signed by Ramirez Thomas MD 03/18/24 12:56:
#Osteoporosis should read as Osteoarthritis
Original Note:
Today's Communication/Plan
-
Medically stable for discharge to rehab as log as she voids OK
Assessment / Plan
Assessment / Plan
88-year-old female presented with a fall. She tripped and fell while walking to an apartment
RIGHT knee MRI
1. Comminuted nondisplaced/nondepressed proximal tibia fracture as described.
2. Medial meniscus tearing as described.
3. Tricompartmental osteoarthritis.
4. Moderate suprapatellar joint effusion with lipohemarthrosis.
LEFT knee xray
Findings suggesting a new nondisplaced fracture of the anterior proximal left tibia. See above.
Mild tricompartmental osteoarthritis. Stable.
Mild medial and lateral compartment chondrocalcinosis. New
CT PE study-no PE. Mild dependent left pleural fluid. Bronchiectasis and chronic atelectasis of the right middle lobe. Increase in the patchy groundglass opacities within both lungs suggestive of atelectasis or groundglass pneumonitis. Enlarged
right hilar lymph node. Enlarged subcarinal and right is echo esophageal lymph node.
Head CT-There are no focal or acute intracranial abnormalities.There is mild diffuse cortical and cerebellar atrophy

On examination patient is awake alert
No sensorimotor deficits in the lower extremities
Cardiovascular system S1-S2 regular
Chest clear to auscultation
Abdomen soft and nontender
Bilateral knee immobilizers
# Bilateral nondisplaced proximal tibial fracture
Mechanical fall
Initial left knee x-ray in ER showing nondisplaced fracture of anterior proximal left tibia
Left knee immobilizer has been placed
Ortho evaluated no surgical indication
Toe-touch weightbearing allowed on left lower extremity
As patient was having right knee pain, a follow-up MRI done today showing nondisplaced proximal tibial fracture of right leg as well
Orthopedic surgery recommended for right knee to be immobilized as well with toe-touch weightbearing only
At high risk for DVT as patient will be more or less bedbound for 4-6 weeks. started Lovenox for DVT PPX.
#Paroxysmal atrial fibrillation with rapid ventricular rate
Status post Watchman device
03/12 evening patient went into RVR with heart rate in 190-200 range, patient asymptomatic at that time, rapid response was called
Status post ERLINDA cardioversion 03/14/2024.
Continue Coreg 12.5 twice daily and Tambocor 50 mg every 12
#Forehead Laceration - Left eyebrow. No acute changes on Head CT. Steristrips in place
#Mild Thrombocytopenia- Resolved
#Constipation-Resolved
#Mild Hyponatremia-Better
#Urinary Retention-Nava Catheter in place. Voiding trial today 03/16/24.
#Hypertension-Coreg
#Bronchiectasis
#GERD-Continue Protonix
#Hyperlipidemia-Continue statin
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
#Enlarged lymph nodes-Chest -Needs outpatient pulmonary follow-up
#History of surgery for pulmonary nodule
#History of neuropathy
#Sensorineural hearing loss
#Osteoporosis
#Spinal Stenosis
#History of Hysterectomy
#History of Parathyroid node resection
#History of Left nephrectomy for malignancy
#Full code
#DVT prophylaxis�Lovenox
Discussed with nursing at bedside
Discussed with case management at bedside. Aware that patient is medically stable for discharge to rehab.
Physiatry evaluation noted. Does not need acute rehab. Needs subacute rehab. I discussed with the patient that we need to broaden the search
Anticipated Discharge: Today
Subjective/Interval History
-
Date of Service: March 16, 2024
Objective Data
-
Vital Signs:
Vital Signs
Temp Pulse Resp BP Pulse Ox
98.8 F 80 16 132/64 97
03/16/24 07:05 03/16/24 07:05 03/16/24 07:05 03/16/24 07:05 03/16/24 07:05
I&O
03/15/24 03/16/24 03/17/24
06:59 06:59 06:59
Output Total 400 / 400 500 / 500 450 / 450
Balance -400 / -400 -500 / -500 -450 / -450
[2024-03-16 11:00] VITALS: BP 125/95
[2024-03-16] MEDS: TAMBOCOR 50 MG PO ×2 (12:09→23:19)
--- NOTE | 2024-03-16 12:35 | CM ---
Addendum entered by Teri Townsend 03/16/24 16:32:
Auth began in [employer]
Approved for SNF level of care from 03/17-03/23
NRD 03/23
Certification Number - [id number]
Plan - Transfer to [facility] tomorrow
Original Note:
Chart reviewed. Spoke with pt
Pt medically ready for discharge
Received call from Michael at [facility] - reviewing referral and plans to speak to pts son
Will notify CM if can accept pt
Will need auth
Plan - SNF when bed/auth obtained
--- NOTE | 2024-03-16 13:12 | PTCARENOTE ---
Pt with no urine output since catheter removal this am. Bladder scanned for 330 ml. Pt assisted to commode and unable to urinate. Dr Gramajo made aware. Assessment ongoing.
[2024-03-16] MEDS: FLOMAX 0.4 MG PO (14:46)
[2024-03-16 15:00] VITALS: BP 115/59
--- NOTE | 2024-03-16 16:01 | PTCARENOTE ---
Pt with no urine output since catheter removal this am. Bladder scan 411 ml. Pt denies discomfort/ urge to void. Dr. Thomas notified and advised RN to reassess in 2 hours. Care remains ongoing.
[2024-03-16] MEDS: LOVENOX 40 MG SC (17:05)
--- NOTE | 2024-03-16 18:17 | PTCARENOTE ---
Pt with a scant amount of urine output noted on brief. Bladder scan 329. Pt denies urge to void, unable to void when assisted onto bedpan. Dr Thomas notified. Care remains ongoing.
[2024-03-16 19:20] VITALS: BP 134/57
[2024-03-16] MEDS: RESTORIL 15 MG PO (22:09)
[2024-03-16 23:05] VITALS: BP 125/59
[2024-03-17 03:00] VITALS: BP 126/66
[2024-03-17] MEDS: FLOMAX 0.4 MG PO (03:55)
--- NOTE | 2024-03-17 03:58 | PTCARENOTE ---
03:30pt bladder canned for 427cc, refusing to get straight cath. PRN Flomax administered.b/p 130/68
[2024-03-17] MEDS: SYNTHROID 150 MCG PO (06:01)
--- NOTE | 2024-03-17 06:46 | PTCARENOTE ---
pt post void residual 189cc, pt was not st cath.
[2024-03-17 07:05] VITALS: BP 126/73
[2024-03-17] MEDS: PROTONIX 40 MG PO (08:51)
[2024-03-17] MEDS: COREG 12.5 MG PO (08:51)
[2024-03-17] MEDS: REFRESH CELLUVISC GEL 1 DROPS BOTH EYES ×2 (08:51→17:18)
[2024-03-17] MEDS: ROBITUSSIN 200 MG PO (08:51)
[2024-03-17] MEDS: LOW STRENGTH ASPIRIN 81 MG PO (08:51)
[2024-03-17] MEDS: COLACE PO (08:52)
[2024-03-17] MEDS: MIRALAX PO (08:52)
[2024-03-17] MEDS: SENOKOT PO (08:52)
[2024-03-17 11:15] VITALS: BP 130/78
[2024-03-17] MEDS: TAMBOCOR 50 MG PO (11:35)
[2024-03-17] MEDS: ROBITUSSIN DM 10 ML PO (11:35)
--- NOTE | 2024-03-17 12:21 | W.PN.HOSP.TC ---
Addendum entered and electronically signed by Ramirez Thomas MD 03/18/24 12:55:
#Osteoporosis should read as Osteoarthritis
Original Note:
Today's Communication/Plan
-
Await UA
Discharge
Assessment / Plan
Assessment / Plan
88-year-old female presented with a fall. She tripped and fell while walking to an apartment
RIGHT knee MRI
1. Comminuted nondisplaced/nondepressed proximal tibia fracture as described.
2. Medial meniscus tearing as described.
3. Tricompartmental osteoarthritis.
4. Moderate suprapatellar joint effusion with lipohemarthrosis.
LEFT knee xray
Findings suggesting a new nondisplaced fracture of the anterior proximal left tibia. See above.
Mild tricompartmental osteoarthritis. Stable.
Mild medial and lateral compartment chondrocalcinosis. New
CT PE study-no PE. Mild dependent left pleural fluid. Bronchiectasis and chronic atelectasis of the right middle lobe. Increase in the patchy groundglass opacities within both lungs suggestive of atelectasis or groundglass pneumonitis. Enlarged
right hilar lymph node. Enlarged subcarinal and right is echo esophageal lymph node.
Head CT-There are no focal or acute intracranial abnormalities.There is mild diffuse cortical and cerebellar atrophy

On examination patient is awake alert
No sensorimotor deficits in the lower extremities
Cardiovascular system S1-S2 regular
Chest clear to auscultation
Abdomen soft and nontender
Bilateral knee immobilizers
# Cough. Chest x-ray with no pneumonia. Robitussin DM ordered. Also discussed that she could bring Flonase and use it for postnasal drip.
# Bilateral nondisplaced proximal tibial fracture
Mechanical fall
Initial left knee x-ray in ER showing nondisplaced fracture of anterior proximal left tibia
Left knee immobilizer has been placed
Ortho evaluated no surgical indication
Toe-touch weightbearing allowed on left lower extremity
As patient was having right knee pain, a follow-up MRI done today showing nondisplaced proximal tibial fracture of right leg as well
Orthopedic surgery recommended for right knee to be immobilized as well with toe-touch weightbearing only
At high risk for DVT as patient will be more or less bedbound for 4-6 weeks. started Lovenox for DVT PPX.
#Paroxysmal atrial fibrillation with rapid ventricular rate
Status post Watchman device
03/12 evening patient went into RVR with heart rate in 190-200 range, patient asymptomatic at that time, rapid response was called
Status post ERLINDA cardioversion 03/14/2024.
Continue Coreg 12.5 twice daily and Tambocor 50 mg every 12
#Forehead Laceration - Left eyebrow. No acute changes on Head CT. Steristrips in place
#Mild Thrombocytopenia- Resolved
#Constipation-Resolved
#Mild Hyponatremia-Better
#Urinary Retention-Nava Catheter taken out 03/16/2024 and replaced 03/17/2024 because of retention. Patient was seen by Dr. Garrett who recommended replacement. Patient had mild dysuria therefore ordered urine analysis.
#Hypertension-Coreg
#Bronchiectasis
#GERD-Continue Protonix
#Hyperlipidemia-Continue statin
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
#Enlarged lymph nodes-Chest -Needs outpatient pulmonary follow-up
#History of surgery for pulmonary nodule
#History of neuropathy
#Sensorineural hearing loss
#Osteoporosis
#Spinal Stenosis
#History of Hysterectomy
#History of Parathyroid node resection
#History of Left nephrectomy for malignancy
#Full code
#DVT prophylaxis�Lovenox
Discussed with nursing at bedside
Discussed with case management
Discussed with Dr. Garrett
More than 30 minutes spent in discharge including
Final examination of the patient
Summarizing hospital stay
Instructions for continuing care to all relevant caregivers
Preparation of discharge records, prescriptions, and referral forms
Total time spent (in minutes): 40
Anticipated Discharge: Today
Subjective/Interval History
-
Date of Service: March 17, 2024
Objective Data
-
Vital Signs:
Vital Signs
Temp Pulse Resp BP Pulse Ox
98.2 F 82 16 130/78 96
03/17/24 11:15 03/17/24 11:15 03/17/24 11:15 03/17/24 11:15 03/17/24 11:15
I&O
03/16/24 03/17/24 03/18/24
06:59 06:59 06:59
Intake Total 480 / 480
Output Total 500 / 500 1110 / 1110
Balance -500 / -500 -630 / -630
--- NOTE | 2024-03-17 12:45 | W.PN.URO.CBU ---
Today's Communication / Plan
-
place carr plkease
Assessment / Plan
-
s/p fall and a fib bed ridden at risk for uti but cannt void will place carr and go to rehab voiding trial as compltetes trehab
Diagnosis
-
Date of Service: March 17, 2024
-
Patient Diagnosis:
Post Op Day: acute retention h/o oab
Subjective
-
cannot void dto completon
Objective
-
Vital Signs
Temp Pulse Resp BP Pulse Ox
98.2 F 82 16 130/78 96
03/17/24 11:15 03/17/24 11:15 03/17/24 11:15 03/17/24 11:15 03/17/24 11:15
Intake and Output
03/16/24 03/17/24 03/18/24
06:59 06:59 06:59
Intake Total 480 / 480
Output Total 500 / 500 1110 / 1110
Balance -500 / -500 -630 / -630
Intake:
Oral fluids 480 / 480
Output:
Urine, Carr 500 / 500 450 / 450
Straight cath output 660 / 660
Other:
Number of approximated SMALL 1
amounts of urine
How many times incontinent 1
SMALL amount urine
How many times incontinent 1
SATURATED amount urine
Laboratory Results
03/15/24 04:56
03/15/24 04:56
Review of Systems
-
: Incontinence and Difficulty Voiding
Physical Exam
-
General - well developed, well nourished, no acute distress
Chest - clear bilaterally
Abdomen - soft, non-tender, positive bowel sounds, no CVAT, no incisional pain or distention
Genitalia - normal
Rectal - normal
Skin - warm & dry with no rash
Neuro - AOx3, no motor deficits
Extremities - no clubbing, no cyanosis, no edema
Incision - clean, dry
Dressing - clean, dry, intact
Care Review
Data Reviewed
Discussed with: Hospitalist and Nursing
[2024-03-17 12:56] LABS: Urine Albumin 4+ (Neg - Trace); Urine Bilirubin Negative (Negative); Urine Character Cloudy (Clear); Urine Color Yellow; Urine Glucose Negative (Negative); Urine Ketone Negative (Negative); Urine Leukocyte 2+ (Negative); Urine Nitrite Positive (Negative); Urine Occult Blood 4+ (Negative); Urine Urobilinogen Negative (Neg - 1+)
[2024-03-17 13:49] LABS: Urine Amorphous Seen; Urine White Cell 16-20 /HPF (0-5)
[2024-03-17 13:50] LABS: Urine Bacteria Many (Negative)
--- NOTE | 2024-03-17 14:36 | PTCARENOTE ---
Pt with c/o pubic discomfort and nausea Nava catheter remains in place draining urine with sediment. Bladder scan revealed no urine. Dr Thomas notified. Care remains ongoing.
[2024-03-17] MEDS: ZOFRAN 4 MG IV (14:56)
[2024-03-17] MEDS: STERILE WATER FOR INJECTION 10 ML IV (14:57)
[2024-03-17] MEDS: ROCEPHIN 1000 MG IV (14:57)
[2024-03-17] MEDS: Pyridium 200 MG PO (14:57)
[2024-03-17 15:30] VITALS: BP 130/75
--- NOTE | 2024-03-17 15:38 | CM ---
Pt for discharge today
Auth info given to Michael at [facility]
Spoke with son - aware of transfer
Transport at 6 PM
Given IMM
Plan - transfer to [facility]
R - [phone]
F - [phone]
[2024-03-17] MEDS: LOVENOX 40 MG SC (17:19)
--- NOTE | 2024-03-17 17:19 | W.PN.UPDATE ---
Update Note
Progress Note Update
UA C/W UTI
Ill start Ceftriaxone.
Ceftin for DC
Rehab needs to follow up CX
Pt feels better after Pyridium and carr replacement and ceftriaxone
Option of stating over night given
She wants to go to rehab today
Discharge time over 45 min
--- NOTE | 2024-03-17 17:20 | W.DS.TRANS ---
Addendum entered and electronically signed by Ramirez Thomas MD 03/17/24 17:23:
Dictation- [id number]
Original Note:
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
-
Discharge Instructions:
Sleep Apnea Risk Low
Discharge Diagnosis/Procedures Paroxysmal atrial fibrillation with rapid
ventricular rate status post cardioversion
2024
Bilateral nondisplaced proximal tibial fracture
Constipation
Urinary retention status post Nava catheter
UTI
Hypertension
Bronchiectasis
Hyperlipidemia
Hypothyroidism
Diet As tolerated
Additional Activity Toe-touch weightbearing allowed on left and
right lower extremity
Driving Restrictions No driving
Other Services OT,PT
Instructions:
Stand-Alone Forms:
Changes to Home Medications: Yes
Discharge Medications:
DC Medications w/original date entered in [facility]
Mometasone Furoate 1 drops EACH EAR HS EAR PROBLEM 04/29/19
carvedilol 12.5 mg tablet 12.5 mg PO BID Heart Failure 04/29/19
denosumab 60 mg/mL subcutaneous syringe (Prolia) 60 mg SQ [id number] OSTEOPROSIS 04/29/19
pantoprazole 40 mg tablet,delayed release 40 mg PO DAILY Gastrointestinal issue 04/29/19
temazepam 15 mg capsule 15 mg PO HS Sleep 04/29/19
Cholecalciferol (Vitamin D3) [Vitamin D3] 50 mcg PO DAILY Supplement 08/09/20
Konsyl Daily Fiber 28.3% Packet 1 tsp PO DAILY Supplement 08/09/20
Systane Eye Drops 1 drp BOTH EYES TID Eye condition 08/09/20
kxbccoed-zixl-vmwp 8 mg-folic 400 mcg-K 50 mcg-lutein 300 mcg tablet (Centrum Silver Women) 1 ea PO NOON Supplement 08/09/20
pitavastatin calcium 2 mg tablet (Livalo) 2 mg PO Q48H High cholesterol 08/09/20
vit C 250 mg-vit E 90 mg-zinc 40 mg-copper 1 un-fkmcmd-sibmvs capsule (PreserVision AREDS-2) 1 ea PO BID Supplement 08/09/20
Citracal Calcium 1 tab PO BID Supplement 11/29/20
levothyroxine 100 mcg tablet 150 mcg PO DAILY Thyroid 11/29/20
aspirin 81 mg chewable tablet 81 mg PO DAILY Blood Clot Prevention/Tx 03/12/24
atorvastatin 10 mg tablet 10 mg PO DAILY High Cholesterol 03/12/24
acetaminophen 325 mg tablet 650 mg (2 x 325 mg) PO Q4HPRN PRN mild pain/PARKER/temp> 100.4F #0 tabs 03/17/24
benzocaine 6 mg-menthol 10 mg lozenges (Chloraseptic Sore Throat) 1 minal PO Q4HPRN PRN cough/dry throat #0 ea 03/17/24
cefuroxime axetil 500 mg tablet 500 mg PO BID Urinary issue #0 tabs 03/17/24
docusate sodium 100 mg capsule 100 mg PO BID Constipation #30 caps 03/17/24
enoxaparin 40 mg/0.4 mL subcutaneous syringe 40 mg (0.4 mL) SC QPM Blood clot prevention/tx #4 mL 03/17/24
flecainide 50 mg tablet 50 mg PO Q12H Arrhythmia #0 tabs 03/17/24
sennosides 8.6 mg tablet (Sabrina-chester) 17.2 mg (2 x 8.6 mg) PO BID PRN Constipation #0 tabs 03/17/24
tramadol 50 mg tablet 50 mg PO Q6HPRN PRN moderate pain #8 tabs 03/17/24
Home Medication Changes
new
benzocaine 6 mg-menthol 10 mg lozenges (Chloraseptic Sore Throat) 1 minal PO Q4HPRN PRN cough/dry throat #0 ea 03/17/24
cefuroxime axetil 500 mg tablet 500 mg PO BID Urinary issue #0 tabs 03/17/24
docusate sodium 100 mg capsule 100 mg PO BID Constipation #30 caps 03/17/24
enoxaparin 40 mg/0.4 mL subcutaneous syringe 40 mg (0.4 mL) SC QPM Blood clot prevention/tx #4 mL 03/17/24
flecainide 50 mg tablet 50 mg PO Q12H Arrhythmia #0 tabs 03/17/24
sennosides 8.6 mg tablet (Sabrina-chester) 17.2 mg (2 x 8.6 mg) PO BID PRN Constipation #0 tabs 03/17/24
Pending Results: Yes
Additional Pending Results:
urine CX
--- NOTE | 2024-03-18 12:57 | W.PN.UPDATE ---
Update Note
Progress Note Update
fracture could have been traumatic and osteoporotic
== END 2024-03-17 18:25 | DRG 543 ==
LOC: 2 SOUTH 20:22
PROVIDERS: Hospitalist; Internal Medicine Cardiovascular Disease; Nurse Practitioner; Nurse Practitioner Gerontology; ADMITTING PHYSICIAN Hospitalist; ATTENDING PHYSICIAN Hospitalist; CONSULT PHYSICIAN Internal Medicine; CONSULT PHYSICIAN Physical Medicine & Rehabilitation; CONSULT PHYSICIAN Specialist; EMERGENCY PHYSICIAN Student in an Organized Health Care Education/Training Program; FAMILY PHYSICIAN Family Medicine
PROC: 3E0234Z Introduction of Serum, Toxoid and Vaccine into Muscle, Percutaneous Approach (ICD-10-PCS; 2024-03-11)
PROC: 5A2204Z Restoration of Cardiac Rhythm, Single (ICD-10-PCS; 2024-03-14)
DX: M80.061A Age-related osteoporosis with current pathological fracture, right lower leg, initial encounter for fracture (principal); N39.0 Urinary tract infection, site not specified; I48.0 Paroxysmal atrial fibrillation; S82.192A Other fracture of upper end of left tibia, initial encounter for closed fracture; S82.191A Other fracture of upper end of right tibia, initial encounter for closed fracture; M80.062A Age-related osteoporosis with current pathological fracture, left lower leg, initial encounter for fracture; Z95.818 Presence of other cardiac implants and grafts; K59.00 Constipation, unspecified; I10 Essential (primary) hypertension; J47.9 Bronchiectasis, uncomplicated; E78.00 Pure hypercholesterolemia, unspecified; K21.9 Gastro-esophageal reflux disease without esophagitis; W01.0XXA Fall on same level from slipping, tripping and stumbling without subsequent striking against object, initial encounter; Z88.5 Allergy status to narcotic agent; Z88.2 Allergy status to sulfonamides; Z88.8 Allergy status to other drugs, medicaments and biological substances; Z79.01 Long term (current) use of anticoagulants; S01.81XA Laceration without foreign body of other part of head, initial encounter; M11.261 Other chondrocalcinosis, right knee; M17.11 Unilateral primary osteoarthritis, right knee; M19.012 Primary osteoarthritis, left shoulder; Z96.611 Presence of right artificial shoulder joint; R09.02 Hypoxemia; D64.9 Anemia, unspecified; Z23 Encounter for immunization; R59.0 Localized enlarged lymph nodes; E06.3 Autoimmune thyroiditis
CPT/HCPCS: 70450; 71046; 71275; 73502; 73564; 73721; 80048; 80053; 81003; 81015; 83735; 84484; 85025; 85027; 85610; 85730; 87077; 87086; 90471; 90715; 92960; 93005; 93306; 97163; 97167; 97530; 97535; 99285; Q9967

== ENCOUNTER → 2024-04-04 09:51 | Outpatient (REF) | payer OTHER, SELFPAY ==
[2024-04-04 11:32] LABS: Free T3 2.58 pg/ml (2.77-5.27); Free T4 1.63 ng/dl (0.78-2.19)
== END ==
LOC: OLABN 09:51
PROVIDERS: ATTENDING PHYSICIAN Student in an Organized Health Care Education/Training Program
DX: E03.9 Hypothyroidism, unspecified (principal)
CPT/HCPCS: 36415; 84439; 84443; 84481

== ENCOUNTER → 2024-04-16 21:20 | Outpatient (REF) | payer OTHER, SELFPAY ==
[2024-04-17 08:05] LABS: Urine Albumin 3+ (Neg - Trace); Urine Bilirubin 3+ (Negative); Urine Character Cloudy (Clear); Urine Color Orange; Urine Glucose Negative (Negative); Urine Ketone Negative (Negative); Urine Leukocyte 3+ (Negative); Urine Nitrite Positive (Negative); Urine Occult Blood 4+ (Negative); Urine Specific Gravity 1.015 (<1.030); Urine Urobilinogen 3+ (Neg - 1+)
[2024-04-17 08:30] LABS: Urine Squamous Cell 0-2 /LPF (Few); Urine White Cell >100 /HPF (0-5)
[2024-04-17 08:31] LABS: Urine Bacteria Moderate (Negative); Urine Red Blood Cell 16-20 /HPF (0-2)
== END ==
LOC: OLABN 21:20
PROVIDERS: ATTENDING PHYSICIAN Student in an Organized Health Care Education/Training Program
DX: R35.0 Frequency of micturition (principal)
CPT/HCPCS: 81003; 81015; 87077; 87086; 87186

== ENCOUNTER → 2024-04-20 11:54 | Outpatient (REF) | payer OTHER, SELFPAY ==
[2024-04-20 13:09] LABS: Free T4 1.83 ng/dl (0.78-2.19)
[2024-04-20 13:23] LABS: TSH 8.18 uIU/ml (0.47-4.68)
[2024-04-22 20:18] LABS: Total T3 (Sendout) 58 ng/dL (80-200)
== END ==
LOC: OLABN 11:54
PROVIDERS: ATTENDING PHYSICIAN Student in an Organized Health Care Education/Training Program
DX: E03.9 Hypothyroidism, unspecified (principal)
CPT/HCPCS: 36415; 84439; 84443; 84480

== ENCOUNTER → 2024-05-04 09:56 | Outpatient (REF) | payer OTHER, SELFPAY ==
[2024-05-04 12:27] LABS: ALT (SGPT) 64 U/L (0-35); AST (SGOT) 59 U/L (14-36); Albumin 3.3 g/dl (3.5-5.0); Alkaline Phosphatase 90 U/L (38-126); Blood Urea Nitrogen 29 mg/dl (7-17); Carbon Dioxide 12 mmol/L (22-30); Chloride 106 mmol/L (98-107); Glucose 147 mg/dl (70-99); Magnesium 1.6 mg/dl (1.6-2.3); Potassium 5.8 mmol/L (3.5-5.1); Sodium 129 mmol/L (135-145); Total Bilirubin 0.5 mg/dl (0.2-1.3); Total Protein 5.8 g/dl (6.3-8.2); eGFR 48.03
[2024-05-04 13:51] LABS: NT-proBNP 13100 pg/ml
== END ==
LOC: OLABN 09:56
PROVIDERS: ATTENDING PHYSICIAN Student in an Organized Health Care Education/Training Program
DX: I48.0 Paroxysmal atrial fibrillation (principal); I50.9 Heart failure, unspecified
CPT/HCPCS: 36415; 80053; 83735; 83880

== ENCOUNTER → 2024-05-05 12:32 | Outpatient (REF) | payer OTHER, SELFPAY ==
[2024-05-05 13:58] LABS: ALT (SGPT) 65 U/L (0-35); AST (SGOT) 42 U/L (14-36); Albumin 3.5 g/dl (3.5-5.0); Alkaline Phosphatase 96 U/L (38-126); Blood Urea Nitrogen 34 mg/dl (7-17); Calcium 9.4 mg/dl (8.4-10.2); Carbon Dioxide 16 mmol/L (22-30); Chloride 104 mmol/L (98-107); Glucose 140 mg/dl (70-99); Potassium 5.3 mmol/L (3.5-5.1); Sodium 132 mmol/L (135-145); Total Bilirubin 0.4 mg/dl (0.2-1.3); Total Protein 5.9 g/dl (6.3-8.2); eGFR 39.31
== END ==
LOC: OLABN 12:32
PROVIDERS: ATTENDING PHYSICIAN Student in an Organized Health Care Education/Training Program
DX: I48.0 Paroxysmal atrial fibrillation (principal)
CPT/HCPCS: 36415; 80053

== ENCOUNTER 2024-05-14 23:23 | Inpatient (IN) | payer OTHER, SELFPAY ==
[2024-05-14] VITALS (23 sets, daily range): BP systolic 62–96; BP diastolic 34–74; BMI 30.1
[2024-05-14 19:54] LABS: % Basophils 0.2 % (0-2); % Eosinophils 0.1 % (0-6); % Immature Granulocytes 0.5 % (0-0.5); % Lymphocytes 14.8 % (20.5-51.1); % Monocytes 9.1 % (1.7-9.3); % Neutrophils 75.3 % (42.2-75.2); Absolute Immature Granulocytes 0.1 10^3/uL (0-0.05); Absolute Monocytes 1.2 10^3/uL (0.1-0.6); Absolute Neutrophils 10.3 10^3/uL (1.4-6.5); Hematocrit 38.1 % (37.0-47.0); Hemoglobin 12.4 g/dL (12.0-16.0); Mean Corp Hgb Conc. 32.5 g/dL (33.0-37.0); Mean Corpuscular Hgb 28.3 pg (27.0-31.0); Mean Platelet Volume 11.2 fL (7.4-10.4); Nucleated Red Blood Cells % 0 %; Platelet Count 235 10^3/uL (130-400); Red Blood Cell Count 4.38 10^6/uL (4.20-5.40); Red Cell Dist. Width 17.7 % (11.5-14.5); White Blood Cell Count 13.7 10^3/uL (4.8-10.8)
--- NOTE | 2024-05-14 20:05 | ED.GENMED ---
History of Present Illness
General
Chief Complaint: Breathing Problem
Source: patient and family (Daughter who is at the bedside)
Exam Limitations: none
Time Seen by Provider: 05/14/24 19:48
Nursing documentation reviewed up to this point in time: agreed with
History of Present Illness
History of Present Illness:
The patient is a very pleasant 89-year-old female with a past medical history of atrial fibrillation status post Watchman procedure in 2020. Patient arrives from rehab facility with complaints of increased shortness of breath for 1 to 2 weeks as
well as cough. Patient reports that her legs are both extremely swollen, which is unusual for her. Additionally, she has noticed increased redness of her right foot and states that a blister recently ruptured on the top of that foot. Patient
denies chest pain.
Past History
Past History
ED Past Medical History: Arrthythmia, GERD, HTN and Hypercholesterolemia
ED Past Surgical History: Other (Watchman )
Social History
Tobacco: Non-smoker
Alcohol: None
Drug: None
Personal: Other
Living: other (Currently in rehab facility after fracturing bilateral tibias)
Employment: Not employed
Family History
Family History: Other
Review of Systems
Review of Systems
Allergies reviewed?: Yes
Other source history: family
All Other Systems: ROS reviewed and negative except as documented in HPI and ROS
Constitutional: Reports fatigue
EENT: Reports no symptoms
Respiratory: Reports cough and trouble breathing
Cardiac: Reports no symptoms
ABD/GI: Reports no symptoms
: Reports no symptoms
Musculoskeletal: Reports edema
Skin: Reports other
Neurological: Reports no symptoms
Endocrine: Reports no symptoms
Hematologic/Lymphatic: Reports no symptoms
Psychiatric: Reports no symptoms
Phy Exam
Physical Exam
Physical Exam:
Physical Exam
General: Patient conversational but mildly tachypneic
Neck: supple. no meningeal signs. normal psoterior pharynx
Heart: Rapid heart rate, irregular rhythm
Lungs: Tachypneic, decreased breath sounds bilaterally
Abdomen: normal bowel sounds. not tender. no CVAT
Neuro: alert and oriented. no focal neurological deficits
Skin: no rash
Psychiatric: well kept. interactive and cooperative
Extremities: 3+ pitting edema bilateral lower extremities. Right dorsal aspect of foot is warm, red and tender to the touch around ruptured blister
Scores
Heart Failure Risk
Heart Failure Risk Score: Not Applicable
Course
Orders/Labs/Results
Orders:
Orders
05/14/24 19:38
Electrocardiogram (*1) Urgent
Reason for Study: Other
Other Reason for Exam: Respiratory Distress
Cardiac Monitoring- Treatment ONCE
EKG- Treatment ONCE
IV Insert/Care/Rem.- Treatment PRN
O2 Therapy [RESP] Urgent
Titrate/Wean O2 to maintain O2 sat greater than (%): 93
Special Instructions: TO MAINTAIN CONTINUOUS O2 SATS >/= 93%
Pulse Ox/cont/shift [RESP] Urgent
Quantity: 1
Special Instructions: continuous pulse ox
05/14/24 19:40
Complete Blood Count/With Diff Urgent
Comprehensive Metabolic Panel Urgent
NT-proBNP Urgent
Troponin I Urgent
05/14/24 19:47
COVID-19 Antigen Urgent
Source: Nasal Swab
05/14/24 20:41
Amiodarone [Cordarone] 150 mg Dextrose 5%/Water 100 ml [D5w] 100 ml IV NOW
05/14/24 20:45
Amiodarone [Cordarone] 900 mg DEXTROSE 5% PVC-free BAG [D5W PVC-free BAG] 500 ml IV PER PROTOCOL
Initial Dose in mg/min:: 1
Duration of initial dose (hours):: 6
Subsequent dose in mg/min:: 0.5
Duration of subsequent dose (hours):: 18
Maximum dose in mg/min:: 1
Hold and notify provider if:: Heart rate < 60 BPM or SBP < 90 mmHg or MAP < 60 mmHg
05/14/24 21:25
0.9% Sodium Chloride 250 ml [Nss] 250 ml IV BOLUS
05/14/24 21:35
Portable Chest Xray [CR Chest Portable - 1 View] Urgent
Comment:
Reason For Exam: son
Reason Study Needs to be Portable: Patient Unstable
05/14/24 21:37
Vancomycin 1 Gram/200 ml [Vancocin] 1 gram in 200 ml IV NOW
Abnormal Lab Results
05/14/24
19:40
WBC 13.7 H 10^3/uL
(4.8-10.8)
MCHC 32.5 L g/dL
(33.0-37.0)
RDW 17.7 H %
(11.5-14.5)
MPV 11.2 H fL
(7.4-10.4)
Abs Immat Gran (auto) 0.1 H 10^3/uL
(0-0.05)
Absolute Neuts (auto) 10.3 H 10^3/uL
(1.4-6.5)
Absolute Monos (auto) 1.2 H 10^3/uL
(0.1-0.6)
Neutrophils % 75.3 H %
(42.2-75.2)
Lymphocytes % 14.8 L %
(20.5-51.1)
Sodium 133 L mmol/L
(135-145)
BUN 25 H mg/dl
(7-17)
Creatinine 1.7 H mg/dL
(0.6-1.0)
Glucose 134 H mg/dl
(70-99)
ALT 37 H U/L
(0-35)
Total Protein 5.8 L g/dl
(6.3-8.2)
Albumin 3.3 L g/dl
(3.5-5.0)
05/14/24 19:40
05/14/24 19:40
Vital Signs
Initial and Last Documented VS:
Initial Vital Signs
Pulse Resp Pulse Ox
148 26 96
05/14/24 19:37 05/14/24 19:37 05/14/24 19:37
Last Documented Vital Signs
Temp Pulse Resp BP Pulse Ox
98.5 F 100 26 83/56 95
05/14/24 19:39 05/14/24 21:30 05/14/24 21:30 05/14/24 21:16 05/14/24 21:30
MDM/Problems Addressed
Differential Diagnosis Includes:
Acute CHF, pneumonia, right foot cellulitis
MDM/Problems Addressed:
Patient presents with acute cough, shortness of breath and bilateral leg edema
Chronic conditions affecting care: Arrhythmia
Acute Exacerbation and/or Progression of Chronic Illness:
Patient has acute on chronic atrial fibrillation with RVR, likely causing CHF
Acute Exacerbation and/or Progression of Chronic Illness: Arrhythmia
*Radiology
Radiology exam reviewed: preliminary read by ED provider (Increased lung markings bilaterally, right pleural effusion. Chest x-ray reviewed by me)
*Pulse Oximetry
Patient hypoxic: no
*EKG
Interpreted by ED Provider?: Yes
Interpretation: abnormal
Comparison EKG: changes noted (Known A-fib)
Rate: tachycardiac
Rhythm: a-fib
Armstrong: normal axis
Interval: normal interval
QRS Pattern: right bundle branch block
Ischemia: non-specific ST changes
*Demurrage Clerk Interpretation
Rate: tachycardiac
Interpretation: abnormal
Rhythm: a-fib
*Critical Care Note
Total Time (30-74mins, 75-104mins- exclusive of procedures): 45 minutes
comment:
45 minutes critical care given to patient including frequent reassessments of her heart rate, blood pressure, discussing the case with Dr. Shoemaker, cardiology, as well as counseling the patient, her daughter and discussing it with the hospitalist
Data Reviewed
Review of Other/Old Records Reveals: Testing (Cardiac echo shows an EF of 55 to 60% during February 2024)
Source: patient and family
Patient Management
Social determinants of health affecting care: Living situation and Strong social support
Discussion with other providers: Hospitalist and Other (Case discussed with Dr. Chris Shoemaker who agrees that amlodipine can be given to patient for rate control)
Escalation/DeEscalation of care consider admission/obs:
Given patient's atrial fibrillation with RVR and need for rate control as well as signs and symptoms of CHF, decision made to admit the patient.
Given patient's rising creatinine, decision made to hold off on Lasix
ED Attending Note
-
Portions of this chart may have been created with voice recognition software.� Occasional wrong word or��sound alike� substitutions may have occurred due to the inherent limitations of voice recognition software.
Discharge Plan
Departure
Patient Disposition: Admit
Date of Disposition: 05/14/24
Time of Disposition: 21:02
Admit to: Telemetry
Presentation/result/management discussed w/ accepting MD/DO: Hospitalist
Patient with high blood pressure during this ER visit?: No
Condition: Fair
Covid-19: Not Applicable
Discharge Problem:
Atrial fibrillation with rapid ventricular response, Acute renal failure (ARF), Infected wound of right foot, Acute CHF
Prescriptions:
No Action
carvedilol 12.5 MG tablet
12.5 mg PO BID
temazepam 15 MG capsule
15 mg PO HS
pantoprazole 40 MG tablet,delayed release (DR/EC)
40 mg PO DAILY
denosumab [Prolia] 60 MG/ML syringe
60 mg SQ [id number]
Patient Comments:
last injection was in May 2019
Mometasone Furoate
1 drops EACH EAR HS
pitavastatin calcium [Livalo] 2 MG tablet
2 mg PO Q48H
Centrum Silver Women 1 EACH tablet
1 ea PO NOON
Cholecalciferol (Vitamin D3) [Vitamin D3] 50 MCG Capsule
50 mcg PO DAILY
Konsyl Daily Fiber 28.3% Packet
1 tsp PO DAILY
Systane Eye Drops
1 drp BOTH EYES TID
PreserVision AREDS-2 1 EACH capsule
1 ea PO BID
levothyroxine 100 MCG tablet
150 mcg PO DAILY
Citracal Calcium
1 tab PO BID
aspirin 81 MG tablet,chewable
81 mg PO DAILY
atorvastatin 10 mg Tablet
10 mg PO DAILY
docusate sodium 100 mg Capsule
100 mg PO BID Qty: 30 0RF
enoxaparin 40 mg/0.4 mL Syringe
40 mg SC QPM Qty: 4 0RF
Chloraseptic Sore Throat 6-10 mg Lozenge
1 minal PO Q4HPRN PRN (Reason: cough/dry throat) Qty: 0 0RF
sennosides [Sabrina-chester] 8.6 mg Tablet
17.2 mg PO BID PRN (Reason: Constipation) Qty: 0 0RF
acetaminophen 325 mg Tablet
650 mg PO Q4HPRN PRN (Reason: mild pain/PARKER/temp> 100.4F) Qty: 0 0RF
tramadol 50 mg Tablet
50 mg PO Q6HPRN PRN (Reason: moderate pain) Qty: 8 0RF
flecainide 50 mg Tablet
50 mg PO Q12H Qty: 0 0RF
cefuroxime axetil 500 mg Tablet
500 mg PO BID Qty: 0 0RF
Referrals:
Glen Lomeli DO [Family Provider] -
Interventions
Interventions:
*Risk Screen - Suicide Last Done: 05/14/24 19:39
*General Assessment Last Done: 05/14/24 19:39
*Neglect/Abuse Screening Last Done: 05/14/24 19:39
*ED COVID-19 Vaccine History Last Done: 05/14/24 19:39
ED- Cardiac Assessment Last Done: 05/14/24 20:04
ED- Pulmonary Assessment Last Done: 05/14/24 20:04
Discharge Date and Time
Print Language: SURINAMESE
[2024-05-14 20:10] LABS: COVID-19 Antigen Negative (Negative)
[2024-05-14 20:13] LABS: ALT (SGPT) 37 U/L (0-35); AST (SGOT) 36 U/L (14-36); Albumin 3.3 g/dl (3.5-5.0); Alkaline Phosphatase 91 U/L (38-126); Blood Urea Nitrogen 25 mg/dl (7-17); Calcium 8.7 mg/dl (8.4-10.2); Carbon Dioxide 23 mmol/L (22-30); Chloride 101 mmol/L (98-107); Estimated Creatinine Clearance 22 ml/min; Glucose 134 mg/dl (70-99); Potassium 4.4 mmol/L (3.5-5.1); Sodium 133 mmol/L (135-145); Total Bilirubin 0.7 mg/dl (0.2-1.3); Total Protein 5.8 g/dl (6.3-8.2); eGFR 28.49
[2024-05-14 20:16] LABS: NT-proBNP 13200 pg/ml; Troponin I 0.018 ng/ml
[2024-05-14] MEDS: CORDARONE 103 MG IV (21:00)
--- NOTE | 2024-05-14 21:00 | EDRN ---
Patients BP starting to trend down, informed Dr. Luis, aware doing the bolus and ok with that, will continue to monitor.
--- NOTE | 2024-05-14 21:15 | EDRN ---
Placed patient on bedpan, she thought she had to have a bowl movement, didn't have any luck going, taken off bedpan and pulled up in bed, resting comfortably at this time.
[2024-05-14] MEDS: NSS 250 IV ×2 (21:34→22:01)
--- NOTE | 2024-05-14 21:35 | EDRN ---
Went to start Amiodarone drip and patients blood pressure continues to be low, spoke with Dr. Luis we are going to hold it for now and nguyen a 250ml bolus of normal saline and monitor BP, patient is awake and alert and talking with staff and
daughter at bedside.
[2024-05-14] MEDS: VANCOCIN 200 IV (22:16)
--- NOTE | 2024-05-14 22:37 | HPS.HSE ---
Family Physician
-
Family Physician: Glen Lomeli
Chief Complaint
-
shortness of breath
History of Present Illness
HPI
88F from SNF at Local facility HX Paroxysmal atrial fibrillation, HX DCCV, LVEF 50, s/p Watchman( 2020) HX bronchiectasis hypertension, GERD, hypercholesterolemia eduardo pleasant 89-year-old female with a past medical history of atrial fibrillation
status post Watchman procedure in 2020 sen at ER
- increased shortness of breath for 1 to 2 weeks as well as cough
- legs are both extremely swollen, which is unusual for her
- increased redness of her right foot and states that a blister recently ruptured on the top of that foot. P
ROS:
Patient denies chest pain.
Medical History
Past Medical History
Past Medical History: Reports Other (paroxysmal atrial fibrillation, bronchiectasis hypertension, GERD, hypercholesterolemia)
Past Surgical History: Reports None
Social History
Tobacco: Non-smoker
Alcohol: None
Drug: None
Family History
Family History: Not pertinent
Allergies / Home Medications
Allergies reflects when Allergies were last updated in [employer].
Home Medications with original date entered in [employer]
Allergy/Medication List:
Allergies
Allergy/AdvReac Type Severity Reaction Status Date / Time
adhesive tape Allergy sensitive Verified 03/11/24 15:32
skin
chlorpheniramine Allergy taken from Verified 03/11/24 15:32
primary
follow up
visit
oxycodone Allergy taken from Verified 03/11/24 15:32
primary
follow up
visit
phenylephrine Allergy taken from Verified 03/11/24 15:32
primary
follow up
visit
rosuvastatin Allergy taken from Verified 03/11/24 15:32
primary
follow up
visit
silver sulfadiazine Allergy taken from Verified 03/11/24 15:32
primary
follow up
visit
methylscopolamine Allergy taken from Uncoded 03/11/24 15:32
primary
follow up
visit
Home Medications
Mometasone Furoate 1 drops EACH EAR HS EAR PROBLEM 04/29/19
carvedilol 12.5 mg tablet 12.5 mg PO BID Heart Failure 04/29/19
denosumab 60 mg/mL subcutaneous syringe (Prolia) 60 mg SQ [id number] OSTEOPROSIS 04/29/19
pantoprazole 40 mg tablet,delayed release 40 mg PO DAILY Gastrointestinal issue 04/29/19
temazepam 15 mg capsule 15 mg PO HS Sleep 04/29/19
tramadol 50 mg tablet 50 mg PO DAILYPRN PRN pain 04/29/19
Cholecalciferol (Vitamin D3) [Vitamin D3] 50 mcg PO DAILY Supplement 08/09/20
Konsyl Daily Fiber 28.3% Packet 1 tsp PO DAILY Supplement 08/09/20
Systane Eye Drops 1 drp BOTH EYES TID Eye condition 08/09/20
amlodipine 5 mg tablet 5 mg PO DAILY Blood pressure 08/09/20
apixaban 5 mg tablet (Eliquis) 5 mg PO BID Blood clot prevention/tx 08/09/20
sqjtopso-lygk-usnt 8 mg-folic 400 mcg-K 50 mcg-lutein 300 mcg tablet (Centrum Silver Women) 1 ea PO NOON Supplement 08/09/20
pitavastatin calcium 2 mg tablet (Livalo) 2 mg PO Q48H High cholesterol 08/09/20
vit C 250 mg-vit E 90 mg-zinc 40 mg-copper 1 ut-khjltj-etcztt capsule (PreserVision AREDS-2) 1 ea PO BID Supplement 08/09/20
aspirin 81 mg chewable tablet 81 mg PO DAILY 10/17/20
Citracal Calcium 1 tab PO BID 11/29/20
levothyroxine 100 mcg tablet 100 mcg PO DAILY 11/29/20
Review of Systems
-
Constitutional: Reports No Symptoms
EENT: Reports No Symptoms
Respiratory: Reports Trouble Breathing
Cardiac: Denies Chest Pain, Diaphoresis, Palpitations or Syncope
Abdomen/GI: Reports No Symptoms
: Reports No Symptoms
Musculoskeletal: Reports No Symptoms
Skin: Reports No Symptoms
Neurological: Reports No Symptoms
Endocrine: Reports No Symptoms
Hematologic/Lymphatic: Reports No Symptoms
Psych: Reports No Symptoms
Physical Exam
Vital Signs
Vital Signs
Temp Pulse Resp BP Pulse Ox
98.5 F 107 22 81/65 95
05/14/24 19:39 05/14/24 22:20 05/14/24 22:20 05/14/24 22:20 05/14/24 22:20
Physical Exam
General: Well Developed, Well Nourished, No Apparent Distress and Obese
HEENT: NormoCephalic, Moist mucous membranes and Atraumatic
Respiratory: Clear
Cardiac: S1/S2, Irregular Rhythm, Tachycardia, JVD and Other (hypotensive ); No Murmur or Rub
GI: Soft, Non Tender, Non Distended and Normal Bowel Sounds; No Organomegaly
Rectal: Deferred by Provider
Musculoskeletal: No Clubbing, No Cyanosis, Edema, Left Lower Extremity and Edema, Right Lower Extremity (with cellulitis , ruptured venous blisters )
Skin: No Rash
Neuro: Nonfocal/grossly intact
Laboratory Results
-
05/14/24 19:40
05/14/24 19:40
Laboratory Results
Total Bilirubin 0.7 mg/dl (0.2-1.3) 05/14/24 19:40
AST 36 U/L (14-36) 05/14/24 19:40
ALT 37 U/L (0-35) H 05/14/24 19:40
Alkaline Phosphatase 91 U/L (38-126) 05/14/24 19:40
Troponin I 0.018 ng/ml 05/14/24 19:40
Data Reviewed
-
Diagnostic Radiology: Image Personally Visualized and interpreted
Medical Tests (Nuc Med, Echo, EKG etc): Report Reviewed by me
Lab Data: Labs Reviewed by me
Old Records: Reviewed
Impression/Plan
-
Selected Entries
03/11/24
05/14/24
05/14/24
Temp 98.5 F
Pulse 148 127
Blood pressure 93/56
SaO2 96
Oxygen Mode of Delivery Room air
Actual Weight 67.948 kg 77kg
Lab
03/14/24 03/15/24 05/04/24
04:57 04:56 05:10
WBC
Hgb 11.8 L 10.5 L
Sodium
Potassium
Carbon Dioxide
BUN
Creatinine 1.1 H
eGFR 48.03
AST 59 H
ALT 64 H
Troponin I
Cue-H-Wirgrmagdae Pept [id number]
SARS-CoV-2 Antigen
05/05/24 05/14/24 05/14/24
05:10 19:40 19:47
WBC 13.7 H
Hgb 12.4
Sodium 132 L 133 L
Potassium 4.4
Carbon Dioxide 23
BUN 25 H
Creatinine 1.7 H
eGFR 28.49
AST 36
ALT 37 H
Troponin I 0.018
Wor-O-Imvvzmpbfqq Pept [id number]
SARS-CoV-2 Antigen Negative
EKG
ATRIAL FIBRILLATION WITH RAPID VENTRICULAR RESPONSE
RIGHT BUNDLE BRANCH BLOCK
T WAVE ABNORMALITY, CONSIDER INFERIOR ISCHEMIA
ABNORMAL ECG
WHEN COMPARED WITH ECG OF 14-MAR-2024 10:24,
ATRIAL FIBRILLATION HAS REPLACED SINUS RHYTHM
VENT. RATE HAS INCREASED BY 54 BPM
RIGHT BUNDLE BRANCH BLOCK IS NOW PRESENT
03/14/24 TTE
- LVEF is 55-60% by visual estimation.
- Normal right ventricular size and function.
- No significant valvular disease.
- No prior TTE for comparison, however, compared to ERLINDA from November 29, 2020, no significant change.
03/14/2024 CV: Successful synchronized electrical cardioversion of atrial flutter versus atrial tachycardia to sinus rhythm
Last hospitalist admission: 03/11/2024 - 03/17/2024
DC DX; Paroxysmal atrial fibrillation with rapid ventricular rate status post cardioversion
ASSESSMENT & PLAN
Decompensated CHF of HFpEF due to significant volume overload
Severe Volume overload with 9.1 kg (20.2 lb) wt gain over 8-9 weeks
Significantly elevated proBNP but is not new
Currently Hypotensive on Amiodarone bolus
- To start phenyl epinephrine gtt then when BP is acceptable then initiate IV Diuresis
- Currently holding off IV Lasix due to hypotension
- Goal: first to manage volume probably control RVR of Fast AF
Case Hospitalist dw CBC card and consult to f/u in AM
Prx AF RVR suspect due to Volume mediated triggered recurrence RVR
HX paroxysmal A fib on flecainide as outpatient
CHADS2-VASC = 4.
LVEF is 55-60%
- s/p Watchman #[id number] Flex 2020.
- Holding Amiodarone gtt due to Hypotension
- Hold atenolol due to hypotension
- on daily baby ASA. Not on OAC
- To improve BP with He Syn gtt then IV Diuresis to control the volume to control HR
- CBC Card consulted by ER to f/u in AM
ARABELLA with Cr 1.7 suspect cardiorenal syndrome
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
- Pending
Hypotension on Amiodarone gtt
Benign HTN
- Hold atenolol
- cont. to hold Amiodarone
Rt foot cellist due to infected ruptured venous stasis blister due massive Katina edema
- IV Cefazolin in place of Vanco
HX Tibial fractures
Hyperlipidemia
- continue statin
DVT Px: SQH
Full code
ICU
Total Critical Care Time__60___ minutes.
I was immediately available to the patient and staff. I personally examined, reviewed labs, diagnostic images/reports, interpretations, treatment plans, discussed patient care with other providers and family or caregivers (if patient is unable to
make decisions), entered orders as appropriate and documented the medical record.
--- NOTE | 2024-05-14 22:46 | EDRN ---
Dr. Reardon at bedside working on admission, daughter at bedside with patient
[2024-05-14] MEDS: NEO-SYNEPHRINE 250 IV (23:06)
--- NOTE | 2024-05-14 23:22 | EDRN ---
[place] ([facility])- [phone]
[2024-05-15] VITALS (54 sets, daily range): BP systolic 71–123; BP diastolic 33–101
--- NOTE | 2024-05-15 00:15 | PTCARENOTE ---
pt admit to ICU from ER. aaox3. AFib HR low 100s. RA IV x 2 WNL- He gtt infusing per work list. B/L LE +3 edema- RLE cellulitis- full skin assessment as documented. RA Sat 95%. bladder scan 279cc. CHG cloths. POC discussed, BDoughertyNP in to
assess, care ongoing.
[2024-05-15 01:13] LABS: Magnesium 1.3 mg/dl (1.6-2.3)
[2024-05-15] MEDS: MAGNESIUM SULFATE 50 IV (01:51)
--- NOTE | 2024-05-15 04:00 | PTCARENOTE ---
no changes in pt assessment.
[2024-05-15] MEDS: ANCEF 10 IV (05:10)
[2024-05-15] MEDS: SYNTHROID 150 MCG PO (05:10)
[2024-05-15 05:49] LABS: % Basophils 0.3 % (0-2); % Eosinophils 0.1 % (0-6); % Immature Granulocytes 0.5 % (0-0.5); % Lymphocytes 21.1 % (20.5-51.1); % Monocytes 9.9 % (1.7-9.3); % Neutrophils 68.1 % (42.2-75.2); Absolute Immature Granulocytes 0.1 10^3/uL (0-0.05); Absolute Lymphocytes 2.2 10^3/uL (1.2-3.4); Absolute Monocytes 1.1 10^3/uL (0.1-0.6); Absolute Neutrophils 7.2 10^3/uL (1.4-6.5); Hematocrit 35.5 % (37.0-47.0); Hemoglobin 11.8 g/dL (12.0-16.0); Mean Corp Hgb Conc. 33.2 g/dL (33.0-37.0); Mean Corpuscular Hgb 28.5 pg (27.0-31.0); Mean Corpuscular Volume 85.7 fL (81.0-99.0); Mean Platelet Volume 10.6 fL (7.4-10.4); Nucleated Red Blood Cells % 0 %; Platelet Count 200 10^3/uL (130-400); Red Blood Cell Count 4.14 10^6/uL (4.20-5.40); Red Cell Dist. Width 17.4 % (11.5-14.5); White Blood Cell Count 10.6 10^3/uL (4.8-10.8)
[2024-05-15 05:59] LABS: INR 1.39; PT 17.3 Sec (11.4-14.6)
[2024-05-15 06:00] LABS: APTT 33.7 Sec (23.4-35.0)
[2024-05-15 06:33] LABS: ALT (SGPT) 42 U/L (0-35); AST (SGOT) 44 U/L (14-36); Albumin 2.7 g/dl (3.5-5.0); Alkaline Phosphatase 81 U/L (38-126); Blood Urea Nitrogen 26 mg/dl (7-17); Carbon Dioxide 20 mmol/L (22-30); Chloride 104 mmol/L (98-107); Direct Bilirubin 0.2 mg/dl (0.0-0.4); Estimated Creatinine Clearance 22 ml/min; Glucose 99 mg/dl (70-99); Magnesium 1.8 mg/dl (1.6-2.3); Potassium 4.1 mmol/L (3.5-5.1); Sodium 134 mmol/L (135-145); Total Bilirubin 0.7 mg/dl (0.2-1.3); eGFR 28.49
--- NOTE | 2024-05-15 06:53 | W.PN.HOSP.TC ---
Today's Communication/Plan
-
c/w amiodarone gtt
Pressure support
IV diuretics
IV Abx
Blood culture
Procalcitonin
Assessment / Plan
Assessment / Plan
Physical Exam
General:No Apparent Distress and Obese
HEENT: NormoCephalic, Moist mucous membranes and Atraumatic
Respiratory: Basal rales
Cardiac: S1/S2, Irregular Rhythm, Tachycardia,
GI: Soft, Non Tender, Non Distended and Normal Bowel Sounds;
Rectal: No bleed
Musculoskeletal: Bilateral edema of both lower extremities with a blister on the left foot. Redness or edema with tenderness right foot base of toes
Psych, calm, pleasant
Neuro: Awake alert oriented x 3, follows commands, no tremor
Assessment and plan
# Acute on chronic heart failure with preserved ejection fraction
Hypotension, could be mild cardiogenic shock or septic shock
Continue with rate control
Unable to continue with beta-armaan due to hypotension
Continue with amiodarone drip
Pressure support
Follow with cardiology recommendation
# History of paroxysmal A-fib, uncontrolled
Status post Watchman device
Status post cardioversion in February 2024
Continue with amiodarone drip
# Right foot cellulitis
Positive erythema with tenderness
Continue with IV cefazolin
Order blood culture
Consult ID
Of note, leukocytosis, tachycardia, site of cellulitis, meet the criteria of sepsis/septic shock POA
# Hypomagnesemia, replace
# ARABELLA creatinine on admission 1.7. Last creatinine 1.3 on May 05
CKD 3B
Status post left nephrectomy
Monitor renal function.
Monitor for retention
Consult nephrology
#Paroxysmal atrial fibrillation with rapid ventricular rate
Status post Watchman device
03/12 evening patient went into RVR with heart rate in 190-200 range, patient asymptomatic at that time, rapid response was called
Status post ERLINDA cardioversion 03/14/2024.
Continue Coreg 12.5 twice daily and Tambocor 50 mg every 12
#Forehead Laceration - Left eyebrow. No acute changes on Head CT. Steristrips in place
#Mild Thrombocytopenia- Resolved
#Mild Hyponatremia-Better
No confusion
#Primary Hypertension-
#Bronchiectasis
#GERD-Continue Protonix
#Hyperlipidemia-Continue statin
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
#History of surgery for pulmonary nodule
#History of neuropathy
#Sensorineural hearing loss
# History of osteoarthritis
#Spinal Stenosis
#History of Hysterectomy
#History of Parathyroid node resection
#History of Left nephrectomy for malignancy
#Full code
#DVT prophylaxis�Lovenox
Total time spent to see the patient, examining the patient, review data and lab results, discuss treatment plan with patient and nursing staff around 55 minutes
Anticipated Discharge: > 48 hours
Subjective/Interval History
-
Date of Service: May 15, 2024
Objective Data
-
Labs:
Laboratory Results
05/14/24 05/15/24
19:40 05:11
WBC 13.7 H 10.6
Hgb 12.4 11.8 L
Hct 38.1 35.5 L
Plt Count 235 200
PT 17.3 H
INR 1.39
APTT 33.7
Sodium 133 L 134 L
Potassium 4.4 4.1
Chloride 101 104
Carbon Dioxide 23 20 L
BUN 25 H 26 H
Creatinine 1.7 H 1.7 H
Glucose 134 H 99
Calcium 8.7 8.0 L
Total Bilirubin 0.7 0.7
AST 36 44 H
ALT 37 H 42 H
Alkaline Phosphatase 91 81
Vital Signs:
Vital Signs
Temp Pulse Resp BP Pulse Ox
98.4 F 113 25 84/62 95
05/15/24 05:43 05/15/24 06:30 05/15/24 06:30 05/15/24 06:30 05/15/24 06:30
I&O
05/13/24 05/14/24 05/15/24
06:59 06:59 06:59
Intake Total 92 / 92
Balance 92 / 92
[2024-05-15] MEDS: HEPARIN 5000 UNITS SC ×2 (08:01→19:35)
[2024-05-15] MEDS: LIPITOR 10 MG PO (08:03)
[2024-05-15] MEDS: PROTONIX 40 MG PO (08:03)
[2024-05-15] MEDS: LOW STRENGTH ASPIRIN 81 MG PO (08:03)
--- NOTE | 2024-05-15 08:20 | CON.INTV ---
Consultation
Consultation Request
Date/Time Consultation Requested: 05/15/202416
Date/Time Consultation Performed: 05/15/2024814
Requesting Provider: LIZZIE Caal
Performing Provider: Dr. Cyr
Reason for Consultation: Shock
Medical History
-
Chief Complaint: SOB + lower extremity swelling
History of Present Illness:
89-year-old female with a past medical history of paroxysmal A-fib on flecainide, CKD III, hyperlipidemia, history of RA, history of renal cell carcinoma s/p left-sided nephrectomy, spinal stenosis, osteoporosis, left proximal tibial fracture, UMKUMIUT,
history of MARIA DE JESUS, hypothyroidism, colon polyps, hypertension, history of shingles (2022) and history of myasthenia gravis who presented from [facility] with shortness of breath and increased swelling in her legs. She has been more short of
breath over the last 1 to 2 weeks. She says that she recently was diagnosed with heart failure which seem to start after she went to rehab. Her legs are swollen which is unusual for her. Also her right foot has been red. She denies chest pain.
Initially in the ER she was afebrile to 98.5 �F, pulse rate 148, respiratory rate 26, BP 93/56 and saturating 96% on room air. Labs significant for WBC 13.7, creatinine 1.7, magnesium 1.3, proBNP 13,200, troponin negative at 0.018, and COVID-19
antigen negative. Blood culture was collected and CXR showed bilateral pleural effusions with no concerning evidence for active vascular congestion. Due to her hypotension with possible sepsis, she was given IVF with 500 cc of NS 0.9%, also given
vancomycin, given amiodarone 150mg and started on He-Synephrine drip. She was admitted to the ICU for further care with Email Administrator services consulted for additional management/recommendations.
Patient was seen and evaluated today at bedside. Afebrile overnight. Remains on He-Synephrine at 20 mcg/min. Not on any medications for rate control currently. Heart rate 112, BP 96/71 and saturating 96% on room air. Still complains that her
legs are very swollen. Currently denies shortness of breath at rest but she does feel winded with exertion. Denies chest pain, PARKER, nausea, fevers or chills.
PMHx: Paroxysmal A-fib on flecainide s/p Watchman, CKD stage III, history of lung nodule, neuropathy, hyperlipidemia, history of RA, hard of hearing, history of MARIA DE JESUS, history of renal cell carcinoma, osteoporosis, spinal stenosis, hypothyroidism,
hypertension, colonic polyps, history of shingles (2022), history of myasthenia gravis
PSHx: ARMINDA due to fibroids, node removed from parathyroid (06/2019), tubal ligation, right eye cornea surgery, cholecystectomy, bilateral cataract surgery, left-sided nephrectomy due to renal cell carcinoma, right shoulder replacement (10/29/2021),
basal cell carcinoma removal from left leg
Past Medical History
Past Medical History: Other (Above as per HPI)
Past Surgical History: Other (Above as per HPI)
Social History
Tobacco: Non-smoker
Alcohol: None
Drug: None
Living: [facility]
Family History
Family History: Cancer (Father: Throat cancer; son: Lung cancer; maternal cousin: Breast cancer; mother: Melanoma; paternal grandmother: Stomach cancer; maternal uncle: Lung cancer; maternal aunt: Gynecological cancer; sibling: Breast cancer) and
Hypertension (Mother + sibling)
Allergies / Home Medications
Allergies
Allergy/AdvReac Type Severity Reaction Status Date / Time
adhesive tape Allergy sensitive Verified 05/14/24 19:44
skin
chlorpheniramine Allergy taken from Verified 05/14/24 19:44
primary
follow up
visit
oxycodone Allergy taken from Verified 05/14/24 19:44
primary
follow up
visit
phenylephrine Allergy taken from Verified 05/14/24 19:44
primary
follow up
visit
rosuvastatin Allergy taken from Verified 05/14/24 19:44
primary
follow up
visit
silver sulfadiazine Allergy taken from Verified 05/14/24 19:44
primary
follow up
visit
methylscopolamine Allergy taken from Uncoded 05/14/24 19:44
primary
follow up
visit
Home Medications
�Medication �Instructions �Recorded �Confirmed �Last Taken �Type
denosumab 60 mg/mL subcutaneous 60 mg SQ [id number] OSTEOPROSIS 04/29/19 05/14/24 10/01/20 09:00 History
syringe (Prolia)
pantoprazole 40 mg tablet,delayed 40 mg PO DAILY Gastrointestinal 04/29/19 05/14/24 11/29/20 05:45 History
release issue
temazepam 15 mg capsule 15 mg PO HS Sleep 04/29/19 05/14/24 11/28/20 23:00 History
Cholecalciferol (Vitamin D3) 50 mcg PO DAILY Supplement 08/09/20 05/14/24 11/28/20 09:00 History
[Vitamin D3]
Konsyl Daily Fiber 28.3% Packet 1 tsp PO DAILY Supplement 08/09/20 05/14/24 11/27/20 History
[id number] 8 mg-folic 400 1 ea PO NOON Supplement 08/09/20 05/14/24 11/28/20 13:00 History
mcg-K 50 mcg-lutein 300 mcg tablet
(Centrum Silver Women)
vit C 250 mg-vit E 90 mg-zinc 40 1 ea PO BID Supplement 08/09/20 05/14/24 11/28/20 18:30 History
mg-copper 1 [id number]
capsule (PreserVision AREDS-2)
levothyroxine 100 mcg tablet 150 mcg PO DAILY Thyroid 11/29/20 05/14/24 03/11/24 07:00 History
aspirin 81 mg chewable tablet 81 mg PO DAILY Blood Clot 03/12/24 05/14/24 03/11/24 08:00 History
Prevention/Tx
atorvastatin 10 mg tablet 10 mg PO DAILY High Cholesterol 03/12/24 05/14/24 03/11/24 History
acetaminophen 325 mg tablet 650 mg (2 x 325 mg) PO Q4HPRN PRN 03/17/24 05/14/24 Unknown Rx
mild pain/PARKER/temp> 100.4F #0 tabs
benzocaine 6 mg-menthol 10 mg 1 minal PO Q4HPRN PRN cough/dry 03/17/24 05/14/24 Unknown Rx
lozenges (Chloraseptic Sore Throat) throat #0 ea
docusate sodium 100 mg capsule 100 mg PO BID Constipation #30 caps 03/17/24 05/14/24 Unknown Rx
sennosides 8.6 mg tablet (Sabrina-chester) 17.2 mg (2 x 8.6 mg) PO BID PRN 03/17/24 05/14/24 Unknown Rx
Constipation #0 tabs
atenolol 25 mg tablet 25 mg PO BID 05/14/24 05/14/24 Unknown History
bumetanide 2 mg tablet 2 mg PO .DAILY EXCEPT Thursday05/14/24 05/14/24 Unknown History
flecainide 100 mg tablet 100 mg PO DAILY 05/14/24 05/14/24 Unknown History
flecainide 50 mg tablet 50 mg PO HS Arrhythmia 05/14/24 05/14/24 Unknown History
ipratropium 0.5 mg-albuterol 3 mg 3 ml inhalation TID 05/14/24 05/14/24 Unknown History
(2.5 mg base)/3 mL nebulization
soln
lidocaine 4 % topical patch 1 patch topical DAILY PRN pain 05/14/24 05/14/24 Unknown History
(Lidocaine Pain Relief)
polyethylene glycol 3350 17 gram 17 g PO HS 05/14/24 05/14/24 Unknown History
oral powder packet (Miralax)
tramadol 50 mg tablet 100 mg PO Q8 05/14/24 05/14/24 Unknown History
Review of Systems
-
History Source: Patient
All other systems: Negative unless noted
Vitals / Labs / Diagnostic Testing
Vital Signs
Temp Pulse Resp BP Pulse Ox
98.5 F 113 24 94/57 98
05/15/24 07:14 05/15/24 09:43 05/15/24 09:43 05/15/24 09:43 05/15/24 08:01
Lab Data
05/15/24 05:11
05/15/24 05:11
Laboratory Results
05/15/24
05:11
PT 17.3 H
INR 1.39
APTT 33.7
Diagnostic Testing:
Physical Exam
-
HEENT: Normocephalic and Anicteric
Cardiovascular: Irregular Rhythm (Irregularly irregular), Peripheral Edema (+4 lower extremity pitting edema up to the mid thigh bilaterally) and Other (Tachycardic)
Respiratory: Wheeze (negative), Rales (Bibasilar), Rhonchi (negative) and Accessory Resp Muscle Use (negative)
GI: Soft, Non Distended, Non Tender and Normal Bowel Sounds
Neurology: Awake, Alert and Tremors (negative)
Skin: Warm and Dry
General: Respiratory Distress (negative), Comfortable, Fever (negative) and Chills (negative)
Assessment
-
Assessment: 89-year-old female with a past medical history of paroxysmal A-fib on flecainide, CKD III, hyperlipidemia, history of RA, history of renal cell carcinoma s/p left-sided nephrectomy, spinal stenosis, osteoporosis, left proximal tibial
fracture, UMKUMIUT, history of MARIA DE JESUS, hypothyroidism, colon polyps, hypertension, history of shingles (2022) and history of myasthenia gravis who presented from [facility] with shortness of breath and increased swelling in her legs. She has been more
short of breath over the last 1 to 2 weeks. She says that she recently was diagnosed with heart failure which seem to start after she went to rehab. Her legs are swollen which is unusual for her. Also her right foot has been red. She denies
chest pain. Initially in the ER she was afebrile to 98.5 �F, pulse rate 148, respiratory rate 26, BP 93/56 and saturating 96% on room air. Labs significant for WBC 13.7, creatinine 1.7, magnesium 1.3, proBNP 13,200, troponin negative at 0.018, and
COVID-19 antigen negative. Blood culture was collected and CXR showed bilateral pleural effusions with no concerning evidence for active vascular congestion. Due to her hypotension with possible sepsis, she was given IVF with 500 cc of NS 0.9%,
also given vancomycin, given amiodarone 150mg and started on He-Synephrine drip. She was admitted to the ICU for further care with Email Administrator services consulted for additional management/recommendations.
Chronic conditions [employer]LECT[employer]: Paroxysmal A-fib on flecainide s/p Watchman, CKD stage III, history of lung nodule, neuropathy, hyperlipidemia, history of RA, hard of hearing, history of MARIA DE JESUS, history of renal cell carcinoma, osteoporosis, spinal stenosis,
hypothyroidism, hypertension, colonic polyps, history of shingles (2022), history of myasthenia gravis
Impression:
#Circulatory shock in the setting of rapid A-fib with cardiogenic shock, possibly septic component
#Acute HFpEF exacerbation (LVEF 55-60% with mild as moderate concentric LVH per TTE from 03/14/2024)
#Right dorsal foot non-purulent cellulitis
#Anemia with history of low hemoglobin as low as 10.5 in February 2024
#Hyponatremia (mild)
#ARABELLA (baseline creatinine is 0.8�1)
#Transaminitis
#History of UTI due to E. coli (last UCx positive on 04/16/2024)
#History of MARIA DE JESUS with chronic bronchiectasis in the posterolateral right upper lobe + RML/lingula + lower lobes
#History of multiple stable pulmonary nodules, likely due to her history of MARIA DE JESUS
#History of renal cell carcinoma s/p left-sided nephrectomy
#Hypothyroidism
#Hypertension
#Osteoporosis
#History of myasthenia gravis
Plan:
- Patient presented with shortness of breath and lower extremity swelling and clinically appears to be in acute decompensated heart failure with cardiogenic shock; possible component of sepsis but the right foot cellulitis is not impressive
- Cardiology on board and recommendations appreciated
- Ideally want to cautiously diurese to offload the heart and I believe that this will ultimately improve her blood pressure
- In the setting of possible sepsis would try to maintain slightly net negative fluid balance as BP tolerates
- Continue with He-Synephrine with goal MAP >65-70 with SBP>90-100; wean down He-Synephrine as tolerated
- Re-check echo (last 1 done on 03/14/2024 showing preserved LVEF at 55-60% with mild as moderate concentric LVH with normal RV size and function with no significant valvular disease
- Need to keep HR controlled with rate <110 --> cardiology starting PO amio
- CXR shows evidence of volume overload with bilateral pleural effusions (R >L) and trace interstitial edema - re-check CXR in 24-48 hrs to continue trending to monitor for improvement
- Regarding her possible sepsis, ID has been consulted and she will be continued on Ancef for right foot cellulitis
- Blood cultures collected on 05/15 are pending
- MRSA screen pending
- CXR shows patchy parenchymal opacities within the lower lungs but this is likely due to atelectasis
- Trend WBC and monitor for fevers
- Maintain SpO2 >90-94%; she is currently on room air breathing comfortably and saturating 96%
- Aspiration precautions
- Renally adjust all medications and trend UOP; strict I/O
- Trend LFTs
- Trend serum Na
- Okay to resume her home medications except for flecainide now that she is on amiodarone given the risk of QTc prolongation
- Replete electrolytes with K>4, Mg>2
- Maintain euglycemia with goal BG 140-180
- Trend H/H and transfuse if needed to keep Hb>7g/dL; keep plt>20k, unless there is concern for bleeding then keep plt>50k
- prn nebulized bronchodilators - not currently bronchospastic
- Incentive spirometer encouraged 10x per hour for at least 4 hrs a day
- DVT ppx: HSQ
Continue ICU level care for this critically ill patient
Critical care statement: A total of 38 minutes of critical care time was provided for this patient today. This includes management of unstable vital signs, evaluation of the patient at bedside, reviewing the patient's pertinent medical records
including radiographs, microbiology, laboratory evaluations, and discussion with primary team, consultants, pharmacy, nutrition, physical therapy, case management, charge nurse, critical care nursing, and respiratory therapy.
Data:
CXR 05/14/2024:
Moderate right pleural effusion and small left pleural effusion, new since radiograph of March 16, 2024.
Patchy parenchymal opacity within both lower lungs, with main differential considerations of atelectasis and/or pneumonia
--- NOTE | 2024-05-15 09:39 | PTCARENOTE ---
Pt received in bed @ 0700. AAOx3. Denying pain. SaO2 96%. Occasional nonproductive dry cough. Coarse breath sounds. Atrial Fibrillation on campus monitor. +4 pitting LE edema. Neosynephrine gtt infusing @ 20 mcg/min to maintain SBP > 90. Unable
to taper and maintain goal. Pedal pulses present with Doppler. Abdomen obese. (+) bowel sounds. Pt tolerated clear liquids for breakfast. Bowel movement on bed mercado. Small urine. Healing stage 2 on sacrum, dressing C/D/I. Dressing to right dorsal
foot for open blister. 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 Ordered blood cultures drawn and sent.
--- NOTE | 2024-05-15 11:46 | CON.ID ---
Consultation
-
Date/Time Consultation Requested: May 15, 2024 0646
Date/Time Consultation Performed: May 15, 2024 1147
Requesting Provider: Dr. Trinity Angulo
Performing Provider: Dr. Gloria Jimenez
Reason for Consultation: Right foot cellulitis
Chief Complaint / Past History
Chief Complaint
Shortness of breath
History of Present Illness
89-year-old female with history of A-fib, hypertension, bronchiectasis, recent bilateral proximal tibia fractures who presented from [facility] rehab on 05/14 due to shortness of breath and lower extremity edema. Patient reports both legs became very
swollen which had never happened before. 2 to 3 days ago she developed a blister on her right forefoot which opened with some bloody fluid. Foot then became red. Positive pain over the wound. No fevers or chills. She complains of approximately
2 weeks of worsening shortness of breath. In the ER blood pressure was low requiring pressor. She is afebrile. Chest x-ray shows new pleural effusions. BNP more than 13,000. Otherwise patient denies chest pain, diarrhea, urine symptoms.
Past History
Additional Past Medical History:
Hypertension
HLD
Paroxysmal atrial fibrillation status post cardioversion
Status post Watchman procedure
Bronchiectasis
Hypothyroidism
CKD3
Bilateral proximal tibia fractures
Allergy History:
adhesive tape Allergy (Verified 05/14/24 19:44)
sensitive skin
chlorpheniramine Allergy (Verified 05/14/24 19:44)
taken from primary follow up visit
oxycodone Allergy (Verified 05/14/24 19:44)
taken from primary follow up visit
phenylephrine Allergy (Verified 05/14/24 19:44)
taken from primary follow up visit
rosuvastatin Allergy (Verified 05/14/24 19:44)
taken from primary follow up visit
silver sulfadiazine Allergy (Verified 05/14/24 19:44)
taken from primary follow up visit
methylscopolamine Allergy (Uncoded 05/14/24 19:44)
taken from primary follow up visit
Medications Reviewed: Yes
Current Antibiotics:
Cefazolin
Status post vancomycin x 1
Social History
Tobacco: Non-Smoker
Alcohol: None
Drug: None
Living: Longterm (rehab)
Family History
Family History: Not Pertinent
Review of Systems
Review of Systems
General: Negative Fever, Chills or Change in Appetite
HEENT: Negative Sinus Problems, Headache or Pharyngitis
Cardiovascular: Dyspnea and Edema; Negative Chest Pain
Gasteroenterology: Negative Nausea, Vomiting or Diarrhea
Genital / Urological: Negative Dysuria or Flank Pain
Endocrine: Weakness
All systems: All other systems were reviewed and were negative
Vital Signs
Temp Pulse Resp BP Pulse Ox
98.3 F 113 24 94/57 98
05/15/24 11:08 05/15/24 09:43 05/15/24 09:43 05/15/24 09:43 05/15/24 08:01
Physical Exam
Physical Exam
Constitutional: No Acute Distress and Comfortable
Head: Other (No frontal or max or sinus tenderness)
Eyes: No Conjunctival Hemorrhage and Sclera Anicteric
Cardiovascular: Irregular Rate and Other (Tachycardic)
Pulmonary: Other (Decreased breath sounds bilateral bases.)
Gastrointestinal: Soft, Non Tender, Non Distended and Normal Bowel Sounds
Genito-Urinary: Negative CVA Tenderness
Extremities: Edema (Bilateral lower extremity 3+.)
Wound: Other (Right forefoot is a ruptured blister between the first and second toe, there is dark erythema on the dorsum of the foot, minimal warmth. Left foot with small blister.)
Neurological: AO x 3
Lab / Diagnostic Study Results
05/15/24 05:11
05/15/24 05:11
Abs Immat Gran (auto) 0.1 10^3/uL (0-0.05) H 05/15/24 05:11
Absolute Neuts (auto) 7.2 10^3/uL (1.4-6.5) H 05/15/24 05:11
Absolute Lymphs (auto) 2.2 10^3/uL (1.2-3.4) 05/15/24 05:11
Absolute Monos (auto) 1.1 10^3/uL (0.1-0.6) H 05/15/24 05:11
Absolute Basos (auto) 0.0 10^3/uL (0-0.2) 05/15/24 05:11
Immature Gran % 0.5 % (0-0.5) 05/15/24 05:11
Neutrophils % 68.1 % (42.2-75.2) 05/15/24 05:11
Lymphocytes % 21.1 % (20.5-51.1) 05/15/24 05:11
Monocytes % 9.9 % (1.7-9.3) H 05/15/24 05:11
Eosinophils % 0.1 % (0-6) 05/15/24 05:11
Basophils % 0.3 % (0-2) 05/15/24 05:11
PT 17.3 Sec (11.4-14.6) H 05/15/24 05:11
INR 1.39 05/15/24 05:11
Microbiology Results
Micro:
05/15/24 08:26 Blood Culture - Pending
Blood/Venous
05/14/24 CXR: Moderate right pleural effusion and small left pleural effusion, new since radiograph of March 16, 2024. Patchy parenchymal opacity within both lower lungs, with main differential considerations of atelectasis and/or pneumonia
Assessment / Plan
# Mild right foot cellulitis with ruptured blister from edema
- Agree with cefazolin.
- Elevate BLE
# Acute CHF
# Afib with RVR
# Shock on 1 pressor
- Continue ICU support
Hypertension
HLD
Paroxysmal atrial fibrillation status post cardioversion
Status post Watchman procedure
Bronchiectasis
Hypothyroidism
CKD3
Bilateral proximal tibia fractures
Care Review
Plan reviewed with: Physician (Dr. Cyr)
--- NOTE | 2024-05-15 12:08 | CM ---
CM met with pt bedside
Pt is a STR resident from [facility]
Was admitted to in Feb 2024 and discharged to [facility]
AxO 3x and very pleasant
Prior to rehab placement, pt living indep at home alone in a 1st floor condo with 0STE
Driving+
Pt set to dc from skilled rehab at [facility] on 05/14
Plan to private pay for a few days at SNF and home on 05/18 with private duty/[employer] and [employer] [facility]
Pt will benefit from PT/OT orders
If SNF needs on dc, hopeful for return to [facility]
Pt would require [employer] auth
Discharge Disposition- TBD
--- NOTE | 2024-05-15 12:22 | CON.CAR ---
Consultation
Consultation Request
Date/Time Consultation Requested: Juna Reardon MD
Date/Time Consultation Performed: 05/15/2024 at 0006 hrs
Requesting Provider: 05/15/2024 at 1200 hrs
Performing Provider: Chris Shoemaker MD
Reason for Consultation: Recurrent AFib with RVR and heart failure
Medical History
-
Chief Complaint: Dyspnea and edema
History of Present Illness:
89 yo with PAF, s/p Watchman (2020 when LA pressure was normal, 8 mmHg) who presents with new progressive LE edema, LE venous blisters/wounds with erythema, and new cough/dyspnea. No prior history of heart failure. She is back in AFib with RVR.
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
Past Medical History
Past Medical History: Arrhythmias (afib, paroxysmal and VT, details not available), GERD, HTN, Hypercholesterolemia, Hypothyroidism and Other (solitary kidney with CKD3, renal cell cancer, bronchiectasis)
Past Surgical History: Cardiac (Watchman implant 10/16/2020. LA pressure 8 mmHg) and Urological (nephrectoly for RCC)
Social History
Tobacco: Non-Smoker
Family History
Family History: Other (no premature CAD)
Allergies / Home Medications
Allergy/AdvReac Type Severity Reaction Status Date / Time
adhesive tape Allergy sensitive Verified 05/14/24 19:44
skin
chlorpheniramine Allergy taken from Verified 05/14/24 19:44
primary
follow up
visit
oxycodone Allergy taken from Verified 05/14/24 19:44
primary
follow up
visit
phenylephrine Allergy taken from Verified 05/14/24 19:44
primary
follow up
visit
rosuvastatin Allergy taken from Verified 05/14/24 19:44
primary
follow up
visit
silver sulfadiazine Allergy taken from Verified 05/14/24 19:44
primary
follow up
visit
methylscopolamine Allergy taken from Uncoded 05/14/24 19:44
primary
follow up
visit
�Medication �Instructions �Recorded �Confirmed �Type
denosumab 60 mg/mL subcutaneous 60 mg SQ [id number] OSTEOPROSIS 04/29/19 05/14/24 History
syringe (Prolia)
pantoprazole 40 mg tablet,delayed 40 mg PO DAILY Gastrointestinal 04/29/19 05/14/24 History
release issue
temazepam 15 mg capsule 15 mg PO HS Sleep 04/29/19 05/14/24 History
Cholecalciferol (Vitamin D3) 50 mcg PO DAILY Supplement 08/09/20 05/14/24 History
[Vitamin D3]
Konsyl Daily Fiber 28.3% Packet 1 tsp PO DAILY Supplement 08/09/20 05/14/24 History
gdrkuwra-xrxl-pfac 8 mg-folic 400 1 ea PO NOON Supplement 08/09/20 05/14/24 History
mcg-K 50 mcg-lutein 300 mcg tablet
(Centrum Silver Women)
vit C 250 mg-vit E 90 mg-zinc 40 1 ea PO BID Supplement 08/09/20 05/14/24 History
mg-copper 1 ow-hrkdur-czusoe
capsule (PreserVision AREDS-2)
levothyroxine 100 mcg tablet 150 mcg PO DAILY Thyroid 11/29/20 05/14/24 History
aspirin 81 mg chewable tablet 81 mg PO DAILY Blood Clot 03/12/24 05/14/24 History
Prevention/Tx
atorvastatin 10 mg tablet 10 mg PO DAILY High Cholesterol 03/12/24 05/14/24 History
acetaminophen 325 mg tablet 650 mg (2 x 325 mg) PO Q4HPRN PRN 03/17/24 05/14/24 Rx
mild pain/PARKER/temp> 100.4F #0 tabs
benzocaine 6 mg-menthol 10 mg 1 minal PO Q4HPRN PRN cough/dry 03/17/24 05/14/24 Rx
lozenges (Chloraseptic Sore Throat) throat #0 ea
docusate sodium 100 mg capsule 100 mg PO BID Constipation #30 caps 03/17/24 05/14/24 Rx
sennosides 8.6 mg tablet (Sabrina-chester) 17.2 mg (2 x 8.6 mg) PO BID PRN 03/17/24 05/14/24 Rx
Constipation #0 tabs
atenolol 25 mg tablet 25 mg PO BID 05/14/24 05/14/24 History
bumetanide 2 mg tablet 2 mg PO .DAILY EXCEPT Thursday05/14/24 05/14/24 History
flecainide 100 mg tablet 100 mg PO DAILY 05/14/24 05/14/24 History
flecainide 50 mg tablet 50 mg PO HS Arrhythmia 05/14/24 05/14/24 History
ipratropium 0.5 mg-albuterol 3 mg 3 ml inhalation TID 05/14/24 05/14/24 History
(2.5 mg base)/3 mL nebulization
soln
lidocaine 4 % topical patch 1 patch topical DAILY PRN pain 05/14/24 05/14/24 History
(Lidocaine Pain Relief)
polyethylene glycol 3350 17 gram 17 g PO HS 05/14/24 05/14/24 History
oral powder packet (Miralax)
tramadol 50 mg tablet 100 mg PO Q8 05/14/24 05/14/24 History
Review of Systems
-
All other systems: Negative unless noted
Respiratory: Cough and Trouble Breathing
Cardiac: Other (LE edema)
Physical Exam
Vital Signs
Temp Pulse Resp BP Pulse Ox
98.3 F 113 24 94/57 98
05/15/24 11:08 05/15/24 09:43 05/15/24 09:43 05/15/24 09:43 05/15/24 08:01
Lab Results
05/15/24 05:11
05/15/24 05:11
Troponin I 0.018 ng/ml 05/14/24 19:40
Skt-K-Ygnyaleptjs Pept 58000 pg/ml 05/14/24 19:40
Physical Exam
General: Well Developed
HEENT: Normocephalic
Respiratory: Crackles and Rhonchi
Cardiac: Irregular Rhythm
GI: Soft and Non Tender
Musculoskeletal: Edema (2-3+ edmea with blisters and erythema, edema extends to foot)
Skin: Warm
Neuro: AO x 3
Psych: Calm
Impression / Plan
-
[place] Team Leader, Dr. Hall
Abnormal EKG, admit EKG likely AFib with aberration but irregular VT not excluded
AFib RVR
- CHADS2-VASc at least 4 (HF, age, gender)
- Watchman + ASA
- Usually paroxysmal
- Flecainide no longer effective
Hx VT details not available
New Heart failure, etiology uncertain
ARABELLA on CKD
LE venous wounds with likely cellulitis
Plan:
Stop Flec
Start Oral Amio 400 BID
AFib is typically paroxsymal per pt, will see if AFib stops, little literature on electrical cardioversion with Watchman and no anticoagulation
Update echo
IV diuresis
Slowly add GDMT for HF
HF education
Wean He as able
Treat infection
Data Reviewed
-
EKG: Tracing Personally Visualized and interpreted (Likely AFib with aberrtaiton, irrgeular VT less likely but not impossible)
Radiology: Image Personally Visualized and interpreted (small to mod right and small left pleural effusions, basilar opacities: atelectasis/infil, no obvious vascular congestion)
Ultrasound: Other (ERLINDA 11/2020: LVEF 55-60%, no valve dz, nml RV)
[2024-05-15] MEDS: PACERONE 400 MG PO ×2 (12:45→19:35)
[2024-05-15] MEDS: LASIX 40 MG IV ×2 (12:46→17:17)
--- NOTE | 2024-05-15 13:01 | PTCARENOTE ---
Pt reassessed. No changes observed. Pt advanced to Low Residue diet. Neosynephrine gtt continues @ 20 mcg/min. Admiodarone 200mg PO BID started with 1st dose administered now. Lasix 40mg IV BID with 1st dose administered now.
[2024-05-15] MEDS: ANCEF IV (14:46)
[2024-05-15] MEDS: ANCEF 5 IV ×2 (14:55→21:26)
--- NOTE | 2024-05-15 17:37 | PTCARENOTE ---
Pt reassessed. Voiding into bed mercado. Pt expresses orthopnea; face turns cyanotic when flat and turning. SaO2 remains > 95%. Hypotension with turns. Neosynephrine gtt increased to 40 mcg/min to maintain SBP > 90. Remains in Atrial Fibrillation. Heart
Failure education completed with pt and family at bedside. Heart failure education packet reviewed.
[2024-05-15] MEDS: MIRALAX 17 GRAMS PO (21:25)
[2024-05-15] MEDS: RESTORIL 15 MG PO (22:10)
--- NOTE | 2024-05-15 22:21 | PTCARENOTE ---
ax3 zeeshan at 40. see work list. afib 110-120. lungs are coarse- pt is orthopneic. 97% on room air> gets very pate even with turning_ voiding in bedpan
[2024-05-16] VITALS (48 sets, daily range): BP systolic 84–146; BP diastolic 40–122; BMI 29.7
--- NOTE | 2024-05-16 01:38 | PTCARENOTE ---
zeeshan remains at 40. afib 115. afebrile- sleeps when left undisturbed
[2024-05-16] MEDS: NEO-SYNEPHRINE 250 IV ×2 (02:05→20:01)
[2024-05-16 04:17] LABS: Hematocrit 34.5 % (37.0-47.0); Hemoglobin 11.5 g/dL (12.0-16.0); Mean Corp Hgb Conc. 33.3 g/dL (33.0-37.0); Mean Corpuscular Hgb 28.3 pg (27.0-31.0); Mean Corpuscular Volume 84.8 fL (81.0-99.0); Mean Platelet Volume 11.1 fL (7.4-10.4); Platelet Count 219 10^3/uL (130-400); Red Blood Cell Count 4.07 10^6/uL (4.20-5.40); Red Cell Dist. Width 17.1 % (11.5-14.5); White Blood Cell Count 13.4 10^3/uL (4.8-10.8)
[2024-05-16 05:01] LABS: Blood Urea Nitrogen 26 mg/dl (7-17); Calcium 7.9 mg/dl (8.4-10.2); Carbon Dioxide 20 mmol/L (22-30); Chloride 103 mmol/L (98-107); Estimated Creatinine Clearance 29 ml/min; Glucose 89 mg/dl (70-99); Potassium 3.8 mmol/L (3.5-5.1); Sodium 134 mmol/L (135-145); eGFR 39.31
--- NOTE | 2024-05-16 05:22 | PTCARENOTE ---
2lb wt loss- still orthopneic. remains on room air. 40 of zeeshan. legs/feet still plus 4 with plus 3 trunk edema
[2024-05-16] MEDS: ANCEF 5 IV ×3 (05:42→22:30)
[2024-05-16] MEDS: SYNTHROID 150 MCG PO (05:42)
--- NOTE | 2024-05-16 06:13 | PTCARENOTE ---
zeeshan gtt switched from rac to right forearm. picc order placed by naturopathic doctor
--- NOTE | 2024-05-16 06:26 | W.PN.HOSP.TC ---
Today's Communication/Plan
-
She wants regular consistency food
c/w IV Lasix, weight monitoring
Monitor for retention
Good clinical response over night
on oral amiodarone now
IV low dose phenylephrine gtt
Assessment / Plan
Assessment / Plan
Physical Exam
General:No Apparent Distress and Obese
HEENT: NormoCephalic, Moist mucous membranes and Atraumatic
Respiratory: Basal rales
Cardiac: S1/S2, Irregular Rhythm, Tachycardia,
GI: Soft, Non Tender, Non Distended and Normal Bowel Sounds;
Rectal: No bleed
Musculoskeletal: less bilateral edema of both lower extremities with a blister on the left foot. Redness or edema with tenderness right foot base of toes
Psych, calm, pleasant
Neuro: Awake alert oriented x 3, follows commands, no tremor
Assessment and plan
# Acute on chronic heart failure with preserved ejection fraction
Hypotension, could be mild cardiogenic shock or septic shock
Continue with rate control, oral amiodarone now
On Phenylephrine gtt
order echo today
Follow with cardiology recommendation
# History of paroxysmal A-fib, uncontrolled
Status post Watchman device
Status post cardioversion in February 2024
Continue with amiodarone drip
# Right foot cellulitis
Less edema in legs noted
Positive erythema with tenderness
Continue with IV cefazolin
negative blood culture
Consulted ID
Of note, leukocytosis, tachycardia, site of cellulitis, meet the criteria of sepsis/septic shock POA
# Hypomagnesemia, replace
# ARABELLA creatinine on admission 1.7. Last creatinine 1.3 on May 05
CKD 3B
Status post left nephrectomy
Monitored renal function.
Monitored for retention
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
#Paroxysmal atrial fibrillation with rapid ventricular rate
Status post Watchman device
03/12 evening patient went into RVR with heart rate in 190-200 range, patient asymptomatic at that time, rapid response was called
Status post ERLINDA cardioversion 03/14/2024.
Continue Coreg 12.5 twice daily and Tambocor 50 mg every 12
#Forehead Laceration - Left eyebrow. No acute changes on Head CT. Steristrips in place
#Mild Thrombocytopenia- Resolved
#Mild Hyponatremia-Better
No confusion
#Primary Hypertension
On pressure support now -
#Bronchiectasis
#GERD-Continue Protonix
#Hyperlipidemia-Continue statin
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
#History of surgery for pulmonary nodule
#History of neuropathy
#Sensorineural hearing loss
# History of osteoarthritis
#Spinal Stenosis
#History of Hysterectomy
#History of Parathyroid node resection
#History of Left nephrectomy for malignancy
#Full code
#DVT prophylaxis�Lovenox
Total time spent to see the patient, examining the patient, review data and lab results, discuss treatment plan with patient and nursing staff around 55 minutes
Anticipated Discharge: > 48 hours
Subjective/Interval History
-
Date of Service: May 16, 2024
Objective Data
-
Labs:
Laboratory Results
05/16/24
03:54
WBC 13.4 H
Hgb 11.5 L
Hct 34.5 L
Plt Count 219
Sodium 134 L
Potassium 3.8
Chloride 103
Carbon Dioxide 20 L
BUN 26 H
Creatinine 1.3 H
Glucose 89
Calcium 7.9 L
Vital Signs:
Vital Signs
Temp Pulse Resp BP Pulse Ox
98.3 F 113 30 101/76 92
05/16/24 00:00 05/16/24 06:00 05/16/24 06:00 05/16/24 06:00 05/16/24 06:00
I&O
05/14/24 05/15/24 05/16/24
06:59 06:59 06:59
Intake Total 1354 / 1354
Output Total 1100 / 1100
Balance 92 254 / 254
[2024-05-16] MEDS: HEPARIN 5000 UNITS SC ×2 (07:54→19:45)
[2024-05-16] MEDS: LASIX 40 MG IV ×2 (07:54→19:45)
[2024-05-16] MEDS: LIPITOR 10 MG PO (07:55)
[2024-05-16] MEDS: LOW STRENGTH ASPIRIN 81 MG PO (07:55)
[2024-05-16] MEDS: PACERONE 400 MG PO ×2 (07:56→19:45)
[2024-05-16] MEDS: PROTONIX 40 MG PO (07:57)
--- NOTE | 2024-05-16 08:42 | W.PN.INTV ---
Addendum entered and electronically signed by Melly Syed MD 05/16/24 10:51:
Patient subjectively is feeling improved. She still gets short of breath with simple movement in the bed. She denies chest pain, lightheadedness, dizziness. Lower extremity swelling seems to have improved
Marginal blood pressure noted, 90s to 100s, heart rate 110s to 120s. 91% on room air
Chest exam with bibasilar crackles, decreased breath sounds and scattered expiratory wheeze
Irregular rhythm noted
Abdominal exam benign, soft, no tenderness
2+ lower extremity with erythema and blisters, bandage in right foot
Data reviewed
Creatinine improved to 1.3
EKG atrial fibrillation with rapid ventricular response, right bundle morphology
Chest x-ray 05/16 with increased right pleural parenchymal process, pleural fluid
A/P
Overall, patient appears to be subjectively improved.
However, it is concerning that she has gained weight over the past couple weeks.
Unclear cause of heart failure, differential is broad. Cardiology is following
There may be a component of sepsis as well given erythema, mild leukocytosis, possible cellulitis
Reviewed additional history from son by phone
Patient had fallen and had bilateral lower extremity tibial fracture 2 months ago, requiring a prison
Has been relatively sedentary
Moving forward
Continue with amiodarone
Now off flecainide
Transition to He-Synephrine, wean as able
Remains on Ancef for cellulitis, adjust dosing for renal function
Patient is increased risk for thromboembolic process
According to son, no significant bleeding history except bruising, skin bleeding
Await echocardiogram
Check bilateral lower extremity Doppler for thromboembolic process
Maintain bedrest for now
Patient with Watchman procedure, off anticoagulation, was on Eliquis before
Updated son at length by phone
Reviewed with critical care nursing, respiratory care, pharmacy, case management
TCCT 41 min
Original Note:
Today's Communication / Plan
Recommendations
Right sided chest ultrasound today
Echo today
Pending cardiology final recommendations, add IV amiodarone
Wean pressors as possible
Assessment
-
Assessment: 89-year-old female with a past medical history of paroxysmal A-fib on flecainide, CKD III, hyperlipidemia, history of RA, history of renal cell carcinoma s/p left-sided nephrectomy, spinal stenosis, osteoporosis, left proximal tibial
fracture, [place], history of MARIA DE JESUS, hypothyroidism, colon polyps, hypertension, history of shingles (2022) and history of myasthenia gravis who is currently managed in the ICU for CHF and cellulitis of the right foot.
Last 24 hours:
� Being managed in ICU
� Currently on 20 of He-Synephrine
�WBC 13.4, hemoglobin 11.5, platelets 219, sodium 134, potassium 3.8, BUN 26, creatinine 1.3, calcium 7.9
�Echo pending today
Impression:
#Sepsis in the setting of A-fib versus cellulitis
#Acute HFpEF exacerbation
#Right foot cellulitis
#Anemia
#Hyponatremia
#ARABELLA
#Transaminitis
#Hypothyroidism
#Hypertension
#Osteoporosis
#History of myasthenia gravis
#History of renal cell carcinoma status post left-sided nephrectomy
Plan:
�Continue diuresis of Lasix IV twice daily
� Goal of slightly negative fluid balance in the setting of sepsis
� Continue He-Synephrine, currently 20 mg. Wean as possible
� Echo pending today. Last echo 02/2024 showed LVEF of 50 to 60%
� Continue to monitor and control heart rate. Currently on 400 p.o. daily of amiodarone. Cardiology to start IV amiodarone to further assist.
� Chest x-ray showed volume overload with bilateral pleural effusions, right sided greater than left
� Right-sided chest ultrasound ordered to evaluate for fluid burden
� PT OT consulted
� Continue cefazolin for right sided foot cellulitis.
� Blood culture on 05/15 negative. MRSA negative.
�Continue to trend WBC and monitor for fever
� Renally adjust all medications. Strict ins and outs.
� Replete electrolytes as necessary.
� Continue DVT prophylaxis of heparin subcu
Full code
Subjective Dataa
Subjective Data
Date of Service:
Date of Service: May 16, 2024
Overnight patient reports no acute events. She states that she gets short of breath when she moves around too much/when she is on the bedpan. She feels less nauseous and short of breath today. She states that she continues to have pain in her
right foot at site of wound but feels that the swelling has improved. She reports no headaches, nausea, vomiting, chest pain, shortness of breath, abdominal pain or numbness and tingling in extremities.
Today her vitals show blood pressure 110/68, pulse of 118, 23 respirations, afebrile at 98.4, 91% O2 saturation. She is currently down 1 kg since time of admission on 05/14, but is up 10 kg since time of last admission in February.
Chronic conditions [facility]: Paroxysmal A-fib on flecainide s/p Watchman, CKD stage III, history of lung nodule, neuropathy, hyperlipidemia, history of RA, hard of hearing, history of MARIA DE JESUS, history of renal cell carcinoma, osteoporosis, spinal stenosis,
hypothyroidism, hypertension, colonic polyps, history of shingles (2022), history of myasthenia gravis
Chief Complaint: [place] [employer] Group Leader Follow Up
Review of Systems
Cardiopulmonary: Dyspnea
Objective Data
Data Reviewed
Vital Signs / I&O / Oxygen:
Vital Signs
Temp Pulse Resp BP Pulse Ox
98.5 F 118 23 110/68 91
05/16/24 08:00 05/16/24 06:30 05/16/24 06:30 05/16/24 06:30 05/16/24 06:30
Intake and Output
05/15/24 05/16/24 05/17/24
06:59 06:59 06:59
Intake Total 92 / 98 1354 / 1366 204 / 204
Output Total 1100 / 1100 275 / 275
Balance 92 / 98 254 / 266 -71 / -71
SaO2 91
Physical Exam
General: Comfortable
HEENT: Normocephalic and Anicteric
Cardiovascular: S1-S2 and Irregular Rhythm
GI: Soft and Non Distended
Neurology: AO x 3
Skin: Warm and Dry
Labs/Micro/Reports
Lab Data
05/16/24 03:54
05/16/24 03:54
Microbiology
05/15/24 08:26 Blood/Venous Blood Culture - Preliminary
No Growth in 24 hours- Final report to follow
--- NOTE | 2024-05-16 09:36 | W.PN.CD ---
Today's Communication / Plan
-
add IV amiodarone for better rate control
discussed with critical care team on rounds
Impression / Plan
-
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
Septic shock, in setting of cellulitis
-threat to life
-Abx and phenylephrine
AFib with RVR
- CHADS2-VASc at least 4 (HF, age, gender)
- Watchman + ASA
- Usually paroxysmal, now with recurrence in setting of sepsis
- Flecainide no longer effective: now changed to amiodarone
-may need DCCV, but need to treat HF and infection first
- add IV amiodarone for better rate control
Acute HF, new
-suspected HFPEF: check echo
-cont IV lasix with close monitoring of labs, tele
Hx VT details not available
-now on amiodarone
ARABELLA on CKD3a
-monitor diuresis
CCT 35 min
Physical Exam
Vital Signs/Labs
Vital Signs
Temp Pulse Resp BP Pulse Ox
98.5 F 117 35 93/61 96
05/16/24 08:00 05/16/24 09:05 05/16/24 09:05 05/16/24 09:05 05/16/24 09:00
05/15/24 05/16/24 05/17/24
06:59 06:59 06:59
Actual Weight 76.9 kg 76 kg
05/16/24 03:54
05/16/24 03:54
PT 17.3 Sec (11.4-14.6) H 05/15/24 05:11
INR 1.39 05/15/24 05:11
APTT 33.7 Sec (23.4-35.0) 05/15/24 05:11
Magnesium 1.8 mg/dl (1.6-2.3) 05/15/24 05:11
05/14/24
19:40
Hmx-O-Hxpvgqqscrh Pept 61323
LAB Results
05/14/24
19:40
Troponin I 0.018
Physical Exam
Constitutional: No acute distress
EENT: Moist mucous membranes
Cardiovascular: Rhythm/rate is irregular, Pedal edema present, JVD present and Systolic murmur present
Respiratory: Respiratory effort normal
Neuro/Psych: AO x 3
Data Reviewed
-
Date of Service: May 16, 2024
EKG: Other (Tele: A fib 110s)
Labs: Labs Reviewed by me
Critical Care Time (in minutes): 35
--- NOTE | 2024-05-16 10:05 | PTCARENOTE ---
pt having bedside us of chest
--- NOTE | 2024-05-16 10:26 | PTCARENOTE ---
pt having echo at bedside
[2024-05-16] MEDS: CORDARONE 518 MG IV (10:56)
--- NOTE | 2024-05-16 11:00 | CARDSERVLU ---
Echocardiogram with Lumason completed after protocol screening completed. Allergies verified.
Patent IV site: __Rt AC___
IV site flushed with 0.9% NaCl pre and post administration.
Diluted bolus method utilized to enhance visualization of ventricular jimenez.
Total volume given: __3.0_ mL
Patient tolerated all procedures well without complications.
--- NOTE | 2024-05-16 11:16 | CM ---
Addendum entered by Mykel Shrestha 05/16/24 11:28:
CM checked the leavitt by using pt's prescription plan [facility]. [phone]
Original Note:
CM following re: discharge planning.
Discussed in rounds, reviewed pt's chart, met with pt and spoke to pt;s son Vasquez over the phone.
Pt is an 89 year old female, admitted with primary dx of Sepsis in the setting of A-fib versus cellulitis.
Pt reports she has been at [facility] since 03/19/24 and was scheduled to be discharged home on Thursday05/18/24 with [facility], 08/09 caregiver services. Pt reports she lives alone, has 3 supportive children, son Vasquez arranging caregivers services
and they will be available as early as Thursday. Pt stated that hospital bed already delivered to her home today and daughter Lewis was at home and accepted delivery. Pt reports she has a walker, transport chair, hospital bed, tray. Pt made it very
clear she will not return back to [facility] and she is requested she will return back home at discharge with [facility], 08/09 caregiver services and family support.
Pt's address is: [address] [place] [id number], has 2 steps to enter.
CM consulted to check the leavitt for Entresto 24/26 BID, Farxiga 10 mg Daily, Jardiance 10 mg Daily. All three medications: Entresto 24/26 BID, Farxiga 10 mg Daily, Jardiance 10 mg daily the same leavitt: 30 day supplies - $30.00 and 90 day suppliers -
$60.00.
A referral to [facility] made.
D/C plan: per pt's strong request, home with [facility], 08/09 caregiver services and family support.
CM will follow with discharge plan updates as hospitalization progresses
--- NOTE | 2024-05-16 12:14 | PN.CDI ---
Addendum entered and electronically signed by Wilfrid Angulo MD 05/16/24 12:42:
Stage 1 bilateral heel pressure injuries, POA....Stage 2 sacral pressure injury, POA... Stage 2 left buttock pressure injury, POA.'
Original Note:
CDI
- -
CDI:
Physician Documentation Request
Admit Date: 05/14/24 23:23
[address] Kev,
Patient admitted with sepsis.
05/15 Nursing skin assessment, 'Stage 1 bilateral heel pressure injuries, POA....Stage 2 sacral pressure injury, POA... Stage 2 left buttock pressure injury, POA.'
Physician documentation of the type and location of wounds is required for compliant documentation. Based on the above clinical findings and your assessment, please provide the following in your progress note:
1. Location of the ulcer/wound, including laterality.
2. Type (etiology) of ulcer/wound:
- Pressure (decubitus) ulcer
- Other
- Unable to determine
For a pressure ulcer, please also include the stage* of the ulcer:
- Stage 1 - Skin intact, non-blanchable redness
- Stage 2 - Partial thickness loss of dermis, includes intact or open blister
- Stage 3 - Full thickness tissue not including bone, tendon or muscle
- Stage 4 - Full thickness tissue loss, including exposed bone, tendon or muscle
- Unstageable - Full thickness loss in which the base of the ulcer is covered by slough (yellow, moncada, adams, green or brown) and/or eschar (moncada, brown or black) in the wound bed.
- Unable to determine
Use of terms such as suspected, likely, concern for, or probable (associated with a specific diagnosis that is being evaluated, monitored, or treated as if it exists) are acceptable and can be coded in the inpatient setting, when documented at the
time of discharge.
Thank you,
Love BROWER,RN,CCDS
CDI Specialist
Available via tiger text
Please use your independent medical judgment in providing your response.
*Source: National Pressure Ulcer Advisory Panel (NPUAP)
--- NOTE | 2024-05-16 12:53 | W.PN.ID1 ---
Date of Service
Date of Service: May 16, 2024
Today's Communication
Continue cefazolin.
Assessment / Plan
# Mild right foot cellulitis with ruptured blister from edema
# Leukocytosis
- Continue cefazolin (d2)
- Elevate BLE
- Follow wbc
# Acute CHF
# Afib with RVR
# Shock weaning 1 pressor
- Continue ICU support
Hypertension
HLD
Paroxysmal atrial fibrillation status post cardioversion
Status post Watchman procedure
Bronchiectasis
Hypothyroidism
CKD3
Bilateral proximal tibia fractures
Chief Complaint
-: Cellulitis
Subjective / Review of Systems
Foot wound is sore.
Vital Signs / Physical Exam
Vital Signs
Vital Signs
Temp Pulse Resp BP Pulse Ox
98.5 F 113 27 102/65 94
05/16/24 08:00 05/16/24 12:06 05/16/24 12:06 05/16/24 12:06 05/16/24 12:06
Physical Exam
Constitutional: No Acute Distress and Comfortable
Cardiovascular: Irregular Rate and Other (tachycardic)
Pulmonary: Other (Decreased BS bilaterally)
Gastrointestinal: Soft, Non Tender and Non Distended
Extremities: Edema (BLE edema to hips, slightly decreased) and Erythema (Dorsal right foot dark erythema)
Wound: Other (Right foot ruptured blister wound dry)
Neurological: AO x 3
Objective Data
Lab Data
Lab Results
05/16/24 03:54
05/16/24 03:54
PT 17.3 Sec (11.4-14.6) H 05/15/24 05:11
INR 1.39 05/15/24 05:11
APTT 33.7 Sec (23.4-35.0) 05/15/24 05:11
Estimated Creat Clear 29 ml/min 05/16/24 03:54
Total Bilirubin 0.7 mg/dl (0.2-1.3) 05/15/24 05:11
AST 44 U/L (14-36) H 05/15/24 05:11
ALT 42 U/L (0-35) H 05/15/24 05:11
Alkaline Phosphatase 81 U/L (38-126) 05/15/24 05:11
Most recent labs reviewed.
Micro Results:
05/15/24 08:26 Blood Culture - Preliminary
Blood/Venous No Growth in 24 hours- Final report to follow
05/15/24 15:00 MRSA Screen - Pending
Nose
05/14/24 CXR: Moderate right pleural effusion and small left pleural effusion, new since radiograph of March 16, 2024. Patchy parenchymal opacity within both lower lungs, with main differential considerations of atelectasis and/or pneumonia
Care Review
Plan reviewed with: Nurse (Wound ALFIE Sanchez)
--- NOTE | 2024-05-16 12:59 | WOUNDNOTE ---
L BUTTOCK AND SACRUM
--- NOTE | 2024-05-16 13:01 | WOUNDNOTE ---
[facility] RN note: Patient admitted with A fib, Acute renal failure, infected R foot wound.
See H&P for complete history.
PMH:88F from SNF at Local facility HX Paroxysmal atrial fibrillation, HX DCCV, LVEF 50, s/p Watchman( 2020) HX bronchiectasis hypertension, GERD, hypercholesterolemia
Wound Location and type/assessment: Patient admitted with: B/L leg edema, thigh high and b/l dorsal foot blisters. L buttock with healing PI suspect stage 2 or 3PI, scabbed, no drainage. Sacrum and heels blanchable red. Turned patient with assist
of Dr. Jimenez and assessed legs together. + palpable pedal pulses, edema and redness improved compared to admission reports Dr. Jimenez.
Appetite: good.
Pressure redistribution devices in place: Air mattress, turning schedule, pillow under calves.
Plan: Silicone foam placed on L buttock, sacral silicone foam remains in place on Sacrum. Foam adhesives applied to heels to protect. Dorsal feet blisters applied adaptic and silicone foam. Gibran wraps thigh high both legs post vascular ultrasound
today. The above orders confirmed with Dr. Jimenez and nurse Chantale aware to apply gibran wraps after exam.
Will confirm orders with hospitalist and updated nurse. Updated care plan and will follow as needed.
Note to case management of equipment requested for discharge: VN
Recommend follow up at wound care center upon discharge.
--- NOTE | 2024-05-16 13:02 | PTCARENOTE ---
US called and aware Dr Syed would like lower extremity us done sooner/ordered urgent. They will be up as soon as able. IV team also aware of PICC order
--- NOTE | 2024-05-16 13:19 | PTCARENOTE ---
IV team at bedside to place PICC
[2024-05-16 16:25] LABS: TSH 0.51 uIU/ml (0.47-4.68)
--- NOTE | 2024-05-16 17:14 | PTCARENOTE ---
Spoke with Miguel A from [place], pt already had xray today so that was cx, waiting for isotope to arrive. Daughter and pt updated.
--- NOTE | 2024-05-16 17:15 | PTCARENOTE ---
Dr Syed wanted lasix dose held until after nm scan
[2024-05-16] MEDS: MIRALAX PO (19:55)
--- NOTE | 2024-05-16 20:00 | PTCARENOTE ---
Patient received in bed, AAOx3, offers no complaints. Afib with BBC on monitor, afebrile, blood pressure as documented. weak but palpable pulses, +3 edema to lower extremities, + 2 edema to trunk. Lungs with crackles bilaterally, pulse ox 95% on
room air. +pate, +orthopnea. poor appetite noted, incontinent of soft stool. Voiding on bed mercado. Foam dressings on sacrum and buttock intact. Dressings on blateral dorsal feet intact. Gibran bandage applied for compression. RDL PICC with Amiodarone
infusing 0.5 mg/min and He at 40 mcg/min. Plan of care discussed, call zhao within reach
[2024-05-16] MEDS: VIBRAMYCIN 260 MG IV (20:01)
[2024-05-16] MEDS: ROBITUSSIN 100 MG PO (22:30)
[2024-05-16] MEDS: RESTORIL 15 MG PO (22:31)
--- NOTE | 2024-05-16 23:33 | PTCARENOTE ---
HS care given, He at 40 mcg/min, no changes in assessment
[2024-05-17] VITALS (54 sets, daily range): BP systolic 77–150; BP diastolic 49–125; PULSE 107–130; O2SAT 95; BMI 29.2
--- NOTE | 2024-05-17 03:56 | PTCARENOTE ---
Patient reassessed, offers no complaints. Placed on 2L due to low pulse ox while sleeping, cough improved. Voiding on bedpan. Labs sent
[2024-05-17 04:26] LABS: Blood Urea Nitrogen 24 mg/dl (7-17); Calcium 7.8 mg/dl (8.4-10.2); Carbon Dioxide 25 mmol/L (22-30); Chloride 103 mmol/L (98-107); Estimated Creatinine Clearance 31 ml/min; Glucose 105 mg/dl (70-99); Potassium 3.4 mmol/L (3.5-5.1); Sodium 135 mmol/L (135-145); eGFR 43.27
[2024-05-17] MEDS: KCL 100 IV (05:05)
[2024-05-17] MEDS: ANCEF 5 IV ×3 (05:06→22:30)
--- NOTE | 2024-05-17 06:39 | W.PN.HOSP.TC ---
Today's Communication/Plan
-
IV zeeshan with IV Amiodarone
IV Abx
Add oral potassium
Assessment / Plan
Assessment / Plan
Physical Exam
General:No Apparent Distress and Obese
HEENT: NormoCephalic, Moist mucous membranes and Atraumatic
Respiratory: Basal rales
Cardiac: S1/S2, Irregular Rhythm, Tachycardia,
GI: Soft, Non Tender, Non Distended and Normal Bowel Sounds;
Rectal: No bleed
Musculoskeletal: + edema, Tubigrip on both legs
Psych, calm, pleasant
Neuro: Awake alert oriented x 3, follows commands, no tremor
Assessment and plan
# Acute on chronic heart failure with preserved ejection fraction
Persistent hypotension, combination of sepsis and cardiogenic shock
Doubt septic shock
Continue with rate control, oral amiodarone now
On Phenylephrine gtt
Echo showed LVEF 30-35%, Enlarged RV with reduced function, Moderate TR. Normal PASP. Compared to 03/14/24: LV and RV dysfunction are new. Moderate TR is new.
V-Q scan of lungs low probability. US of legs no DVT
Appreciate cardiology and ICU doctors help
# History of paroxysmal A-fib, uncontrolled
Status post Watchman device
Status post cardioversion in February 2024
Continue with amiodarone drip. Now off flecainide
# Right foot cellulitis
Less edema in legs noted with diuretics
Continue with IV cefazolin
negative blood culture
Consulted ID, help appreciated
# hypokalemia
replaced
Add oral KCl BID.
# Hypomagnesemia, replace
# ARABELLA creatinine on admission 1.7. Last creatinine 1.3 on May 05
CKD 3B
Status post left nephrectomy
Monitored renal function.
Monitored for retention
Creatinine is coming down, d/w copy cutter market relationship manager, nothing to add while stable, consult if worsening function.
#Paroxysmal atrial fibrillation with rapid ventricular rate
Status post Watchman device
03/12 evening patient went into RVR with heart rate in 190-200 range, patient asymptomatic at that time, rapid response was called
Status post ERLINDA cardioversion 03/14/2024.
Continue Coreg 12.5 twice daily and Tambocor 50 mg every 12
#Forehead Laceration - Left eyebrow. No acute changes on Head CT. Steristrips in place
#Mild Thrombocytopenia- Resolved
#Mild Hyponatremia-Better
No confusion
#Primary Hypertension
On pressure support now -
#Bronchiectasis
#GERD-Continue Protonix
#Hyperlipidemia-Continue statin
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
#History of surgery for pulmonary nodule
#History of neuropathy
#Sensorineural hearing loss
# History of osteoarthritis
#Spinal Stenosis
#History of Hysterectomy
#History of Parathyroid node resection
#History of Left nephrectomy for malignancy
#Full code
#DVT prophylaxis�Lovenox
Total time spent to see the patient, examining the patient, review data and lab results, discuss treatment plan with patient and nursing staff around 55 minutes
Anticipated Discharge: > 48 hours
Subjective/Interval History
-
Date of Service: May 17, 2024
No chest pain
She feels better
Objective Data
-
Labs:
Laboratory Results
05/17/24
03:51
Sodium 135
Potassium 3.4 L
Chloride 103
Carbon Dioxide 25
BUN 24 H
Creatinine 1.2 H
Glucose 105 H
Calcium 7.8 L
Vital Signs:
Vital Signs
Temp Pulse Resp BP Pulse Ox
97.9 F 108 25 101/56 97
05/17/24 03:53 05/17/24 03:30 05/17/24 03:30 05/17/24 03:30 05/17/24 03:30
I&O
05/15/24 05/16/24 05/17/24
06:59 06:59 06:59
Intake Total 1354 / 1366 1346.2 / 1346.2
Output Total 1100 / 1100 1850 / 1850
Balance 254 / 266 -503.8 / -503.8
[2024-05-17] MEDS: HEPARIN 5000 UNITS SC ×2 (07:45→17:40)
[2024-05-17] MEDS: SYNTHROID 150 MCG PO (07:45)
[2024-05-17] MEDS: LASIX 40 MG IV ×3 (07:45→21:37)
[2024-05-17] MEDS: PROTONIX 40 MG PO (07:46)
[2024-05-17] MEDS: LIPITOR 10 MG PO (07:46)
[2024-05-17] MEDS: PACERONE 400 MG PO ×2 (07:46→20:21)
[2024-05-17] MEDS: VIBRAMYCIN 260 MG IV (07:46)
[2024-05-17] MEDS: LOW STRENGTH ASPIRIN 81 MG PO (07:46)
--- NOTE | 2024-05-17 08:20 | W.PN.INTV ---
Addendum entered and electronically signed by Melly Syed MD 05/17/24 11:32:
Patient is seen and examined independently by myself. Resident note reviewed. Agree with assessment and plan
Patient feeling somewhat improved today. Less short of breath but still dyspneic with movement in the bed. Denies significant lightheadedness, dizziness, nausea. Remains on room air
Received potassium supplement this morning
Blood pressure systolic 90s to 110s/50s to 70s, heart rate 110s, 95% on room air
Weight decreased 2.5 kg since admission
Chest exam with slight decreased breath sounds right base, minimal crackles at base, no wheezes, no egophony. Mild dullness right base
Lower extremity bandages in place
Neurological moves all extremities, conversant
Data reviewed
VQ scan low probability, Dopplers negative for bilateral DVT
Creatinine trending down to 1.2, potassium 3.4
A/P
Concerned about persistent hypotension, remains on He-Synephrine 40 mcg weaned down to 20 mcg
Negative fluid status noted
Unclear if hypertension is due to cardiomyopathy or secondary process such as sepsis, third process such as thromboembolic disease
Continue with management per cardiology
Attempt to wean pressors
Remains on amiodarone drip
Will pursue right thoracentesis, send for appropriate studies
Rule out infectious process
Continue empiric treatment for presumed right lower lobe pneumonia, doxycycline/cefazolin. Also covers for possible lower extremity cellulitis
ID following
Check orthostatics
Increase subcutaneous heparin to every 8 hours, patient high risk for thromboembolic disease
Workup for thromboembolic disease has been negative to date
Would be difficult to pursue CT chest with contrast given solitary kidney, history of nephrectomy without potential risk for renal injury
Subjectively patient is improved in the absence of active anticoagulation, making it less likely thromboembolic process
Still unclear why patient has cardiomyopathy with RV and LV dysfunction
Will try to discuss with cardiology
PT/OT as able
Reviewed with critical care nursing, respiratory care, pharmacy
Attempted to contact son, no answer, message left
TCCT 32 min
Original Note:
Today's Communication / Plan
Recommendations
Thoracentesis today
BNP pending
Orthostatics pending
PT OT evaluation today
Lidocaine patch for shoulder
Assessment
-
Assessment: 89-year-old female with a past medical history of paroxysmal A-fib on flecainide, CKD III, hyperlipidemia, history of RA, history of renal cell carcinoma s/p left-sided nephrectomy, spinal stenosis, osteoporosis, left proximal tibial
fracture, NEWHALEN, history of MARIA DE JESUS, hypothyroidism, colon polyps, hypertension, history of shingles (2022) and history of myasthenia gravis who is currently managed in the ICU for CHF and cellulitis of the right foot.
Last 24 hours:
� Being managed in ICU
� Currently on 20 of He-Synephrine
� WBC 13.4, hemoglobin 11.5, platelets 219, sodium 135, potassium 3.4, BUN 24, creatinine 1.2, calcium 7.8
� Peripheral vascular ultrasound negative for DVT. Lung VQ scan shows low probability for pulmonary embolus
� Echo showed EF of 30 to 35%
� -282 mL of morning. Weight down 1.2 kg from yesterday.
� Patient currently on 40 mg of neosynephrine, 100 mg of Doxy, amiodarone drip
Impression:
#Sepsis in the setting of A-fib versus cellulitis
#Acute HFpEF exacerbation
#Right foot cellulitis
#Hypokalemia
#Anemia
#Hyponatremia
#ARABELLA
#Transaminitis
#Hypothyroidism
#Hypertension
#Osteoporosis
#History of myasthenia gravis
#History of renal cell carcinoma status post left-sided nephrectomy
Plan:
�Continue diuresis of Lasix IV twice daily. Continue to monitor ins and outs
� Goal of slightly negative fluid balance in the setting of sepsis
� Continue He-Synephrine, currently 40 mg. Wean as possible
� Echo completed on 05/16, LVEF showed ejection fraction of 30 to 35% enlarged RV with reduced function, moderate TR. normal PASP. last echo 02/2024 showed LVEF of 50 to 60%
� Continue to monitor and control heart rate. Currently on 400 p.o. daily of amiodarone. Cardiology started IV amiodarone yesterday 05/16 for additional support
� Chest x-ray showed volume overload with bilateral pleural effusions, right sided greater than left
� Right-sided chest ultrasound showed moderate volume on right side�pleural effusion on 05/16. IR consulted for thoracentesis.
� Peripheral vascular ultrasound negative for DVT. Lung VQ scan shows low probability for pulmonary embolus
� Continue cefazolin for right sided foot cellulitis. Start patient on doxycycline 100 mg twice daily.
� Blood culture on 05/15 negative. MRSA negative.
�Continue to trend WBC and monitor for fever
� Renally adjust all medications. Replete potassium today 40 meq potassium chloride.
� Replete electrolytes as necessary.
� BNP level pending
� Orthostatic vitals pending. PT OT consulted, appreciate input.
� Start lidocaine patch for left shoulder pain and as needed Tylenol ordered.
� Continue DVT prophylaxis of heparin subcu
Full code
Subjective Dataa
Subjective Data
Date of Service:
Date of Service: May 17, 2024
No acute events overnight. Patient states that she feels a little bit better than yesterday, but she continues to feel mildly short of breath with too much movement. She states she does not feel any shortness of breath or fluttering in her chest
otherwise. She reports no headaches, nausea, vomiting, abdominal pain or numbness and tingling. She had her last bowel movement yesterday.
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
Objective Data
Data Reviewed
Vital Signs / I&O / Oxygen:
Vital Signs
Temp Pulse Resp BP Pulse Ox
97.9 F 108 25 101/56 97
05/17/24 03:53 05/17/24 03:30 05/17/24 03:30 05/17/24 03:30 05/17/24 03:30
Intake and Output
05/16/24 05/17/24 05/18/24
06:59 06:59 06:59
Intake Total 1354 / 1366 1497.6 / 1497.6
Output Total 1100 / 1100 1850 / 1850
Balance 254 / 266 -352.4 / -352.4
SaO2 97
Physical Exam
General: Comfortable
HEENT: Normocephalic and Anicteric
Cardiovascular: S1-S2 and Irregular Rhythm
GI: Soft and Non Distended
Neurology: AO x 3
Skin: Warm and Dry
Labs/Micro/Reports
Lab Data
05/16/24 03:54
05/17/24 03:51
Microbiology
05/15/24 15:00 Nose MRSA Screen - Final
No Methicillin Resistant Staphylococcus aureus isolated.
05/15/24 08:26 Blood/Venous Blood Culture - Preliminary
No Growth in 24 hours- Final report to follow
[2024-05-17] MEDS: CORDARONE 518 MG IV (09:14)
--- NOTE | 2024-05-17 10:38 | W.PN.CD ---
Today's Communication / Plan
-
- BP support with vasoactive agents
- Contnue Amiodarone
- Thoracentesis today
Impression / Plan
-
Hydroponics Grower, Dr. Hall
Septic shock, in setting of cellulitis
-threat to life
-Abx and phenylephrine
-Pressure support and vaso active agents.
-May need inotropic support.
AFib with RVR
- CHADS2-VASc at least 4 (HF, age, gender)
- Watchman + ASA
- AF / AFL with RVR noted.
-Still in AT vs AFL this am.
- Flecainide no longer effective: now changed to amiodarone
- may need DCCV, but need to treat HF and infection first
- On IV amiodarone for better rate control
Acute HF, new
-Biventricular systolic dysfunction
- Both RV and LV EF is down.
- Possible rate related ananda with higher rates there is significant aberration and desynchrony
-GDMT is limited due to hypotension and need for pressors.
-cont IV lasix with close monitoring of labs, tele
Hx VT details not available
-now on amiodarone
ARABELLA on CKD3a
-monitor diuresis
CCT 35 min
Physical Exam
Vital Signs/Labs
Vital Signs
Temp Pulse Resp BP Pulse Ox
97.7 F 117 31 115/76 96
05/17/24 08:00 05/17/24 09:30 05/17/24 09:30 05/17/24 09:30 05/17/24 09:30
05/16/24 05/17/24 05/18/24
06:59 06:59 06:59
Actual Weight 76 kg 74.8 kg
05/16/24 03:54
05/17/24 03:51
PT 17.3 Sec (11.4-14.6) H 05/15/24 05:11
INR 1.39 05/15/24 05:11
APTT 33.7 Sec (23.4-35.0) 05/15/24 05:11
Magnesium 1.8 mg/dl (1.6-2.3) 05/15/24 05:11
TSH 0.51 uIU/ml (0.47-4.68) 05/16/24 03:54
05/14/24
19:40
Pvo-[id number] Pept 14405
LAB Results
05/14/24
19:40
Troponin I 0.018
Physical Exam
Constitutional: Comfortable
EENT: Anicteric and Moist mucous membranes
Cardiovascular: Rhythm/rate is irregular, Pedal edema present, JVD present and Diastolic murmur present
Respiratory: Respiratory effort normal and Rhonchi Present
GI: Soft and Non tender
Neuro/Psych: Alert and Oriented
Data Reviewed
-
Date of Service: May 17, 2024
Medical Decision Making: Reviewed Test Results, Test Interpretation and Review of Case with other Provider
EKG: Tracing Personally Visualized and interpreted
Echo: Report Reviewed by me
Labs: Labs Reviewed by me
Old Records: Reviewed
Critical Care Time (in minutes): 35
--- NOTE | 2024-05-17 10:41 | W.PN.ID1 ---
Date of Service
Date of Service: May 17, 2024
Today's Communication
Continue cefazolin, doxyycline.
Assessment / Plan
# Right foot cellulitis with ruptured blister from edema
# Leukocytosis
- Continue cefazolin (d3)
- Elevate, CANDACE wrap BLE
- Follow wbc
# PNA
- Doxycycline (d2) added to cefazolin (d3)
# Acute CHF, EF 30-35%
# Afib with RVR
# Shock weaning 1 pressor
- Continue ICU support
Hypertension
HLD
Paroxysmal atrial fibrillation status post cardioversion
Status post Watchman procedure
Bronchiectasis
Hypothyroidism
CKD3
Bilateral proximal tibia fractures
Chief Complaint
-: Cellulitis
Subjective / Review of Systems
mild cough
Vital Signs / Physical Exam
Vital Signs
Vital Signs
Temp Pulse Resp BP Pulse Ox
97.7 F 117 31 115/76 96
05/17/24 08:00 05/17/24 09:30 05/17/24 09:30 05/17/24 09:30 05/17/24 09:30
Physical Exam
Constitutional: No Acute Distress and Comfortable
Cardiovascular: Irregular Rate and Other (tachycardic)
Pulmonary: Rales (bibasilar crackles)
Gastrointestinal: Soft, Non Tender and Non Distended
Extremities: Edema (BLE edema to hips, slightly decreased) and Erythema (Dorsal right foot dark erythema)
Wound: Other (Right foot ruptured blister wound dry)
Neurological: AO x 3
Objective Data
Lab Data
Lab Results
05/16/24 03:54
05/17/24 03:51
PT 17.3 Sec (11.4-14.6) H 05/15/24 05:11
INR 1.39 05/15/24 05:11
APTT 33.7 Sec (23.4-35.0) 05/15/24 05:11
Estimated Creat Clear 31 ml/min 05/17/24 03:51
Total Bilirubin 0.7 mg/dl (0.2-1.3) 05/15/24 05:11
AST 44 U/L (14-36) H 05/15/24 05:11
ALT 42 U/L (0-35) H 05/15/24 05:11
Alkaline Phosphatase 81 U/L (38-126) 05/15/24 05:11
Most recent labs reviewed.
Micro Results:
05/15/24 08:26 Blood Culture - Preliminary
Blood/Venous No Growth in 48 hours- Final report to follow
05/15/24 15:00 MRSA Screen - Final
Nose No Methicillin Resistant Staphylococcus aureus isolated.
05/16/24 CXR: Slightly increased right midlung opacity which could represent pneumonia. Right greater than left basilar opacity again identified which could represent subsegmental atelectasis and/or pneumonia and bilateral pleural effusions.
05/14/24 CXR: Moderate right pleural effusion and small left pleural effusion, new since radiograph of March 16, 2024. Patchy parenchymal opacity within both lower lungs, with main differential considerations of atelectasis and/or pneumonia
[2024-05-17] MEDS: LIDOCAINE 4% PATCH 1 PATCH TOPICAL (11:33)
--- NOTE | 2024-05-17 12:39 | PTCARENOTE ---
Pt assisted oob to chair after orthostatic vss completed as charted. Pt tolerated well, but hunched over using walker. Steady on feet. Weaning zeeshan slowly as charted. Pt does c/o sob with ambulation. Increased cough noted t/o morning, pt aware
that thora pending.
[2024-05-17 12:52] LABS: NT-proBNP 16900 pg/ml
--- NOTE | 2024-05-17 14:19 | CM ---
CM following re: discharge planning.
Discussed in rounds, reviewed pt's chart, met with pt.
Pt reports she has been at [facility] since 03/19/24 and was scheduled to be discharged home on Thursday05/18/24 with [facility] services, 08/09 caregiver services. Pt reports she lives alone, has 3 supportive children, son Vasquez arranging caregivers services
and they will be available as early as Thursday. Pt stated that hospital bed already delivered to her home today and daughter Lewis was at home and accepted delivery. Pt reports she has a walker, transport chair, hospital bed, tray. Pt made it very
clear she will not return back to [facility] and she is requested she will return back home at discharge with [facility], 08/09 caregiver services and family support.
Pt's address is: [address] [place] [id number], has 2 steps to enter.
[facility] liaison following.
[facility] [place] fax: [phone]
D/C plan: per pt's strong request, home with [facility], 08/09 caregiver services and family support.
CM will follow with discharge plan updates as hospitalization progresses
--- NOTE | 2024-05-17 16:14 | PTCARENOTE ---
Received pt at 1530, complete assessment done and documented, see worklist. Pt remains AFib with a BBB as per monitor, presently on amiodarone iv at 0.5 mg/min and He at 20 mcg/min, BP 102/71. Pt with 2 person assist back to bed, and brought down
to IR on bed with tele monitor, and 2 RNs for a R thoracentesis procedure.
[2024-05-17 17:00] LABS: Body Fluid pH 7.48
[2024-05-17 17:15] LABS: Body Fluid Glucose 124 mg/dl; Body Fluid LDH 91 U/L; Body Fluid Protein < 2.0 g/dl
--- NOTE | 2024-05-17 17:52 | PTCARENOTE ---
Pt brought back to ICU, s/p her R thoracentesis. 1100 ml yellow fluid reported removed. Dinner ordered. Band-aid intact R back. Lobes remain with scattered rhonchi/crackles. Amio and He drips remain infusing.
[2024-05-17] MEDS: ROBITUSSIN 100 MG PO (18:41)
[2024-05-17] MEDS: NEO-SYNEPHRINE 250 IV (18:54)
[2024-05-17 19:43] LABS: Body Fluid WBC 1042 /CUMM
[2024-05-17 19:44] LABS: Body Fluid Mononuclear 59.6 %; Body Fluid Polymorphonuclear 40.4 %
[2024-05-17 19:51] LABS: Body Fluid Second Tech FB
--- NOTE | 2024-05-17 20:00 | PTCARENOTE ---
Patient received in bed, AAOx3. Afib with RVR on monitor, afebrile, He gtt infusing at 20 mcg/min. + edema to lower extremities. Lungs with coarse scattered crackles, bilaterally, pulse ox 91% on room air. Patient with frequent cough. +
tachypnea. Abdomen soft. Purewick with small amount of urine. RDL PICC with Amiodarone gtt infusing at 0.5 mg/min. right bandaid to right lung intact.
[2024-05-17] MEDS: MIRALAX PO (20:10)
[2024-05-17] MEDS: VIBRAMYCIN 100 MG PO (20:21)
[2024-05-17] MEDS: KCL PO ×2 (20:21→22:09)
[2024-05-17] MEDS: ZOFRAN 4 MG IV (20:37)
--- NOTE | 2024-05-17 20:45 | PTCARENOTE ---
Patients heart rate as high as 150, Amiodarone gtt increased to 1 mg/min as ordered
--- NOTE | 2024-05-17 20:45 | PTCARENOTE ---
Patient continues to cough continuously, unable to stop. Coughing up white froth. patients heart rate in the 140s, EKG completed. patient tachypneic with a rate in the 40s. Oxygen increased to 4L. PCXR ordered.
--- NOTE | 2024-05-17 21:30 | PTCARENOTE ---
Patient still appears in respiratory distress with uncontrollable cough, stat lasix given and carr catheter placed without difficulty. Immediate return of clear yellow urine
[2024-05-17] MEDS: ROBITUSSIN 200 MG PO (21:32)
[2024-05-17] MEDS: OFIRMEV 100 IV (21:57)
--- NOTE | 2024-05-17 22:02 | PTCARENOTE ---
temp elevated, ofirmev given
--- NOTE | 2024-05-17 22:22 | PTCARENOTE ---
labs sent as ordered
[2024-05-17 22:24] LABS: Venous Blood Gas B.E. -4.8 mmol/L (-4 to +4); Venous Blood Gas HCO3 20.5 mmol/L (22-27); Venous Blood Gas O2 Sat % 88.2 %; Venous Blood Gas pCO2 38 mmHg (35-48); Venous Blood Gas pH 7.34 (7.32-7.43); Venous Blood Gas pO2 56 mmHg (30-50)
[2024-05-17] MEDS: RESTORIL 15 MG PO (22:30)
[2024-05-17 22:38] LABS: Blood Urea Nitrogen 24 mg/dl (7-17); Calcium 7.3 mg/dl (8.4-10.2); Carbon Dioxide 21 mmol/L (22-30); Chloride 99 mmol/L (98-107); Estimated Creatinine Clearance 28 ml/min; Glucose 157 mg/dl (70-99); Potassium 3.8 mmol/L (3.5-5.1); Sodium 130 mmol/L (135-145); eGFR 39.31
[2024-05-18] VITALS (49 sets, daily range): BP systolic 78–119; BP diastolic 49–92; BMI 27.6
--- NOTE | 2024-05-18 | PTCARENOTE ---
Patient reassessed, temp down, heart rate improved. He gtt restarted. Lungs with scattered crackles, pulse ox 96% on 4L. Resting when not disturbed. No other changes in assessment
[2024-05-18] MEDS: HEPARIN 5000 UNITS SC ×3 (00:08→16:19)
[2024-05-18 05:16] LABS: Blood Urea Nitrogen 25 mg/dl (7-17); Calcium 7.2 mg/dl (8.4-10.2); Carbon Dioxide 25 mmol/L (22-30); Chloride 101 mmol/L (98-107); Estimated Creatinine Clearance 28 ml/min; Glucose 125 mg/dl (70-99); Magnesium 1.2 mg/dl (1.6-2.3); Potassium 3.7 mmol/L (3.5-5.1); Sodium 133 mmol/L (135-145); eGFR 39.31
[2024-05-18 05:20] LABS: NT-proBNP 15300 pg/ml
[2024-05-18] MEDS: CORDARONE 518 MG IV ×2 (05:35→20:09)
[2024-05-18] MEDS: ANCEF 5 IV (05:35)
[2024-05-18] MEDS: MAGNESIUM SULFATE 50 IV (05:47)
--- NOTE | 2024-05-18 05:52 | PTCARENOTE ---
labs noted, order received. No changes in patient assessment
--- NOTE | 2024-05-18 07:24 | PTCARENOTE ---
assumed care of pt. 0700.
Events from HS discussed with night team.
Remains on 1mg amio gtt, zeeshan titrated off.
Breathing now non labored, no tachypnea upon examination.
02 titrated down.
[2024-05-18] MEDS: VIBRAMYCIN 100 MG PO ×2 (07:30→19:03)
[2024-05-18] MEDS: KCL 20 MEQ PO ×2 (07:30→20:56)
[2024-05-18] MEDS: LIPITOR 10 MG PO (07:30)
[2024-05-18] MEDS: LOW STRENGTH ASPIRIN 81 MG PO (07:30)
[2024-05-18] MEDS: PROTONIX 40 MG PO (07:30)
[2024-05-18] MEDS: LASIX 40 MG IV ×2 (07:31→16:19)
[2024-05-18] MEDS: SYNTHROID 150 MCG PO (07:31)
[2024-05-18] MEDS: LIDOCAINE 4% PATCH 1 PATCH TOPICAL (07:37)
--- NOTE | 2024-05-18 07:56 | W.PN.CD ---
Today's Communication / Plan
-
- IV diuresis as tolerated
- On Amiodarone loading
- May need R and LHC once out of the septic shock
- Possible rate related cardiomyopathy.
- Limited in starting GDMT due to sepsis
Impression / Plan
-
Automation Consultant, Dr. Hall
Septic shock, in setting of cellulitis
-threat to life
-Abx and phenylephrine
- was on pressors this AM. Weaned of but flucatuating BP. Still in low 90s/50s.
-was no zeeshan this AM.
AFib with RVR
- CHADS2-VASc at least 4 (HF, age, gender)
- Watchman + ASA
- AF / AFL with RVR noted. Wide QS with faster rates - rate related bundle branch vs aberration.
-Still in AT vs AFL this am.
-S/p thoracentesis 05/17/24 -and the rates are better now.
- Flecainide no longer effective: now changed to amiodarone
- may need DCCV, but need to treat HF and infection first
- On IV amiodarone for better rate control
Acute HF, new
-Biventricular systolic dysfunction
- Both RV and LV EF is down.
- Possible rate related ananda with higher rates there is significant aberration and desynchrony
-GDMT is limited due to hypotension and need for pressors. (Sepsis is an ultimate afterload reduction - Low EF in setting of sepsis is more alarming)
-cont IV lasix with close monitoring of labs, tele
Hx VT details not available
-now on amiodarone
ARABELLA on CKD3a
-monitor diuresis
CCT 35 min
Physical Exam
Vital Signs/Labs
Vital Signs
Temp Pulse Resp BP Pulse Ox
98 F 98 19 97/60 97
05/18/24 07:19 05/18/24 07:31 05/18/24 07:30 05/18/24 07:31 05/18/24 07:30
05/17/24 05/18/24 05/19/24
06:59 06:59 06:59
Actual Weight 74.8 kg 70.6 kg
05/16/24 03:54
05/18/24 04:20
PT 17.3 Sec (11.4-14.6) H 05/15/24 05:11
INR 1.39 05/15/24 05:11
APTT 33.7 Sec (23.4-35.0) 05/15/24 05:11
Magnesium 1.2 mg/dl (1.6-2.3) L 05/18/24 04:20
TSH 0.51 uIU/ml (0.47-4.68) 05/16/24 03:54
05/14/24 05/17/24 05/17/24
19:40 03:51 10:37
[id number]-[id number] Pept [id number] Cancelled
05/18/24
04:20
Dim-J-Oetgtpulpry Pept [id number]
Physical Exam
Constitutional: No acute distress and Comfortable
EENT: Anicteric and Moist mucous membranes
Cardiovascular: Rhythm & rate is regular, Pedal edema present, JVD present and Systolic murmur present
Respiratory: Respiratory effort normal and Rhonchi Present
GI: Soft, Non tender and Normal bowel sounds
Neuro/Psych: Alert, Oriented and AO x 3
Data Reviewed
-
Date of Service: May 18, 2024
Medical Decision Making: Reviewed Test Results, Test Interpretation and Review of Case with other Provider
EKG: Tracing Personally Visualized and interpreted
Echo: Report Reviewed by me
X-Ray/CT/US/MRI/NUC/PET: Image Personally Visualized and interpreted
Labs: Labs Reviewed by me
Old Records: Reviewed
Critical Care Time (in minutes): 35
--- NOTE | 2024-05-18 08:36 | PTCARENOTE ---
upon review of allergy list, pt. noted to have Phenylephrine HCL allergy as active.
Pt. receiving phenylephrine gtt. due to hypotension.
Notified pharmacy. Will review allergy w. pt. during ICU rounds.
[2024-05-18] MEDS: PACERONE PO (08:38)
--- NOTE | 2024-05-18 08:44 | PTCARENOTE ---
Maintenance Mechanic Technician notified of pt. receiving PO amio + IV amio 1mg.
Cardiology notified, Orders to hold PO Amio.
--- NOTE | 2024-05-18 08:50 | W.PN.INTV ---
Addendum entered and electronically signed by Melly Syed MD 05/18/24 12:29:
Patient seen and examined independently by myself. Resident note reviewed below. Agree with assessment and plan. Patient seems to be improved this morning. Yesterday p.m. and events noted at length
Increase symptoms postthoracentesis, increased cough, mild worsening respiratory status, oxygen requirement. Given dose of Lasix, this was followed by hypotension but improvement in overall symptoms. Remains on Zeeshan-Synephrine, wean down.
Currently on 4 L of oxygen
Crackles at base, left greater than right, slightly decreased right breath sounds. There are few scattered crackles in the upper lung reyes
Irregularly irregular rhythm, no obvious murmur
Abdominal exam soft
1+ edema, improved, mild erythema, no warmth
Data reviewed creatinine 1.3. Magnesium 1.2. Pleural fluid noted, elevated white count, but otherwise transudate features. Chest x-ray with questionable pulm edema per my review postthoracentesis in the p.m.
EKG atrial fibrillation with rapid ventricular response, right bundle morphology
A/P
Moving forward
Continue with management of multiple processes
Patient remains on antibiotics for suspected pneumonia, cellulitis
Increased cough likely from combination of mild reexpansion pulm edema and improvement of right lower lobe atelectasis following thoracentesis. Cough improved today
Continues with diuresis per cardiology
Hypotension noted, wean Zeeshan-Synephrine as able
Remains on amiodarone drip
No indication for anticoagulation at this time
PE workup negative for thromboembolic process to date
One-time fever yesterday p.m. noted, now resolved
Nava catheter in place as of yesterday p.m.
Possibility of right and left heart cath noted
Recommend reviewing CODE STATUS with family. When discussed with patient, she is referred to son-in-law who will 'email documents'
This will be an ongoing discussion
Reviewed with critical care nursing, respiratory care, pharmacy
Reviewed with primary service, cardiology
TCCT 31 min
Original Note:
Today's Communication / Plan
Recommendations
Recheck BMP and magnesium level at 4 PM
Assessment
-
Assessment: 89-year-old female with a past medical history of paroxysmal A-fib on flecainide, CKD III, hyperlipidemia, history of RA, history of renal cell carcinoma s/p left-sided nephrectomy, spinal stenosis, osteoporosis, left proximal tibial
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
Last 24 hours:
� Being managed in ICU
� Currently on 20 of Zeeshan-Synephrine
� sodium 133, potassium 3.7, BUN 25, creatinine 1.3, calcium 7.2, Mg 1.2
- BNP- 11991
� Peripheral vascular ultrasound negative for DVT. Lung VQ scan shows low probability for pulmonary embolus. Echo showed EF of 30 to 35%
� -348 mL of morning. Weight down 4.2 kg from yesterday, total 6.4 kg since time of admission.
� Patient currently on 20 mg of neosynephrine and amiodarone drip + amiodarone PO
�1100 mL of straw-colored pleural fluid drained yesterday during thoracentesis, transudative with elevated white blood cell count
Impression:
#Sepsis in the setting of A-fib versus cellulitis
#Acute HFpEF exacerbation
#Right foot cellulitis
#Hypokalemia
#Anemia
#Hyponatremia
#ARABELLA
#Transaminitis
#Hypothyroidism
#Hypertension
#Osteoporosis
#History of myasthenia gravis
#History of renal cell carcinoma status post left-sided nephrectomy
Plan:
�Continue diuresis of Lasix IV twice daily. Continue to monitor ins and outs
� Goal of slightly negative fluid balance in the setting of sepsis
� Continue Zeeshan-Synephrine, currently 50 mg. Wean as possible
� Echo completed on 3/31, LVEF showed ejection fraction of 30 to 35% enlarged RV with reduced function, moderate TR. normal PASP. last echo 02/2024 showed LVEF of 50 to 60%
� Continue to monitor and control heart rate. Currently on 400 p.o. daily of amiodarone. Cardiology started IV amiodarone on 05/16 for additional support
Per cardiology on 05/18, patient may need right and left heart catheterization once out of ICU level of care. Limited ability to start GDMT due to sepsis.
� Chest x-ray showed volume overload with bilateral pleural effusions, right sided greater than left.
� Thoracentesis of right lung completed on 05/17. 1.1 L of straw-colored fluid drained. Analysis showed transudative fluid with elevated white blood cell count
� Peripheral vascular ultrasound negative for DVT. Lung VQ scan shows low probability for pulmonary embolus
� Continue cefazolin for right sided foot cellulitis. Start patient on doxycycline 100 mg twice daily.
� Blood culture on 05/15 negative. MRSA negative.
�Continue to trend WBC and monitor for fever
� Renally adjust all medications. 2 g of magnesium ordered today for repletion. Replete electrolytes as necessary. Recheck magnesium and potassium level at 4 PM.
� Continue 20 mg oral potassium twice daily.
� BNP level elevated at 15,300
� Start lidocaine patch for left shoulder pain and as needed Tylenol ordered.
� Continue DVT prophylaxis of heparin subcu
Full code
Subjective Dataa
Subjective Data
Date of Service:
Date of Service: May 18, 2024
Patient states that she is feeling better this morning however had a difficult night yesterday. After completion of thoracentesis, patient was coughing throughout the night and had difficulty sleeping. She states that this morning cough has
improved but continues to bother her. She is coughing up thick clear secretions. She complains of no headaches, nausea, vomiting, chest pain or shortness of breath.
Patient had 1 episode of fever overnight. She was off of zeeshan for short period, however required for it to be restarted. Yesterday she had 1 extra dose of Lasix in the evening. X-ray showed pulmonary edema.
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
Review of Systems
Cardiopulmonary: Cough and Sputum Production
Objective Data
Data Reviewed
Vital Signs / I&O / Oxygen:
Vital Signs
Temp Pulse Resp BP Pulse Ox
98 F 98 19 97/60 97
05/18/24 07:19 05/18/24 07:31 05/18/24 07:30 05/18/24 07:31 05/18/24 07:30
Intake and Output
05/17/24 05/18/24 05/19/24
06:59 06:59 06:59
Intake Total 1497.6 / 1526.3 1455.8 / 1495.1 118.6 / 118.6
Output Total 1850 / 1850 1485 / 1535 120 / 120
Balance -352.4 / -323.7 -29.2 / -39.9 -1.4 / -1.4
SaO2 97
Nasal Cannula flow liters per 4
minute
Physical Exam
General: Comfortable
HEENT: Normocephalic and Anicteric
Cardiovascular: S1-S2 and Irregular Rhythm
Respiratory: Crackles
GI: Soft and Non Distended
Neurology: AO x 3
Skin: Warm and Dry
Labs/Micro/Reports
Lab Data
05/16/24 03:54
05/18/24 04:20
Microbiology
05/15/24 08:26 Blood/Venous Blood Culture - Preliminary
No Growth in 72 hours- Final report to follow
05/17/24 16:42 Pleural Fluid Gram Stain - Preliminary
05/15/24 15:00 Nose MRSA Screen - Final
No Methicillin Resistant Staphylococcus aureus isolated.
--- NOTE | 2024-05-18 09:22 | W.PN.HOSP.TC ---
Today's Communication/Plan
-
Called son Vasquez and answered all questions
Possible R & L HC per cardiology
remain on amiodarone drip with IV Lasix
Assessment / Plan
Assessment / Plan
Physical Exam
General:No Apparent Distress
HEENT: NormoCephalic, Moist mucous membranes and Atraumatic
Respiratory: much less Basal rales
Cardiac: S1/S2, Irregular Rhythm, Tachycardia,
GI: Soft, Non Tender, Non Distended and Normal Bowel Sounds;
Rectal: No bleed
Musculoskeletal: much less + edema, Tubigrip on both legs
Psych, calm, pleasant
Neuro: Awake alert oriented x 3, follows commands, no tremor
Assessment and plan
# Acute on chronic heart failure with preserved ejection fraction
Persistent hypotension, combination of sepsis and cardiogenic shock
Doubt septic shock
Continue with rate control, IVl amiodarone gtt
On Phenylephrine gtt
Echo showed LVEF 30-35%, Enlarged RV with reduced function, Moderate TR. Normal PASP. Compared to 03/14/24: LV and RV dysfunction are new. Moderate TR is new.
V-Q scan of lungs low probability. US of legs no DVT
Appreciate cardiology and ICU doctors help
# Bilateral pleural effusions, right sided greater than left.
s/p thoracentesis of right lung completed on 05/17. 1.1 L of straw-colored fluid drained. Analysis showed transudative fluid with elevated white blood cell count
Post thoracentesis re-expansion acute pulmonary edema, improved with Lasix and O2
� Peripheral vascular ultrasound negative for DVT. Lung VQ scan shows low probability for pulmonary embolus
# History of paroxysmal A-fib, uncontrolled
Status post Watchman device
Status post cardioversion in February 2024
Continue with amiodarone drip. Now off flecainide
# Right foot cellulitis
Less edema in legs noted with diuretics
Continue with IV cefazolin, doxycycline.
negative blood culture
Consulted ID, help appreciated
# hypokalemia
replaced
Added oral KCl BID.
# Hypomagnesemia, replace
# ARABELLA creatinine on admission 1.7. Last creatinine 1.3 on May 05
CKD 3B
Status post left nephrectomy
Monitored renal function.
Monitored for retention
Creatinine is coming down, d/w chick sexer automation design engineer, nothing to add while stable, consult if worsening function.
#Paroxysmal atrial fibrillation with rapid ventricular rate
Status post Watchman device
03/12 evening patient went into RVR with heart rate in 190-200 range, patient asymptomatic at that time, rapid response was called
Status post ERLINDA cardioversion 03/14/2024.
Continue Coreg 12.5 twice daily and Tambocor 50 mg every 12
#Forehead Laceration - Left eyebrow. No acute changes on Head CT. Steristrips in place
#Mild Thrombocytopenia- Resolved
# hypomagnesemia
#Mild Hyponatremia-Better
No confusion
#Primary Hypertension
On pressure support now -
#Bronchiectasis
#GERD-Continue Protonix
#Hyperlipidemia-Continue statin
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
#History of surgery for pulmonary nodule
#History of neuropathy
#Sensorineural hearing loss
# History of osteoarthritis
#Spinal Stenosis
#History of Hysterectomy
#History of Parathyroid node resection
#History of Left nephrectomy for malignancy
#Full code
#DVT prophylaxis�Lovenox
Total time spent to see the patient, examining the patient, review data and lab results, discuss treatment plan with patient, son and nursing staff around 55 minutes
Anticipated Discharge: > 48 hours
Subjective/Interval History
-
Date of Service: May 18, 2024
No chest pain
No sob
Less cough today
No fever or chills
Objective Data
-
Labs:
Laboratory Results
05/17/24 05/18/24
22:17 04:20
Sodium 130 L 133 L
Potassium 3.8 3.7
Chloride 99 101
Carbon Dioxide 21 L 25
BUN 24 H 25 H
Creatinine 1.3 H 1.3 H
Glucose 157 H 125 H
Calcium 7.3 L 7.2 L
Vital Signs:
Vital Signs
Temp Pulse Resp BP Pulse Ox
98 F 98 19 97/60 97
05/18/24 07:19 05/18/24 07:31 05/18/24 07:30 05/18/24 07:31 05/18/24 07:30
I&O
05/17/24 05/18/24 05/19/24
06:59 06:59 06:59
Intake Total 1497.6 / 1526.3 1455.8 / 1495.1 118.6 / 118.6
Output Total 1850 / 1850 1485 / 1535 120 / 120
Balance -352.4 / -323.7 -29.2 / -39.9 -1.4 / -1.4
--- NOTE | 2024-05-18 12:52 | PTCARENOTE ---
No change in assessment.
Phenylephrine removed from allergy list, per pharmacy workup.
--- NOTE | 2024-05-18 14:01 | W.PN.ID1 ---
Date of Service
Date of Service: May 18, 2024
Today's Communication
Broaden cefazolin to cefepime.
Assessment / Plan
# Right foot cellulitis with ruptured blister from edema
# PNA
# Fever overnight
# Leukocytosis
- Pleural fluid - transudative, cx neg to date
- Foot erythema has increased
- Broaden cefazolin (d4) to cefepime 2g IV q24.
-Continue doxycycline po (d3)
- Follow temps wbc
- Check blood cx's x 2 if fever persists.
# Acute CHF, EF 30-35%
# Afib with RVR
# Shock weaning 1 pressor
- Continue ICU support
Hypertension
HLD
Paroxysmal atrial fibrillation status post cardioversion
Status post Watchman procedure
Bronchiectasis
Hypothyroidism
CKD3
Bilateral proximal tibia fractures
Chief Complaint
-: Cellulitis
Subjective / Review of Systems
Bad cough after thoracentesis yesterday. No cough today.
Vital Signs / Physical Exam
Vital Signs
Vital Signs
Temp Pulse Resp BP Pulse Ox
98.4 F 101 29 110/92 97
05/18/24 11:04 05/18/24 11:30 05/18/24 11:30 05/18/24 11:30 05/18/24 11:30
Selected Entries
05/17/24
22:00
Temp 102.3 F H
Physical Exam
Constitutional: No Acute Distress
Cardiovascular: Irregular Rate and S1/S2
Pulmonary: Rales (bibases)
Gastrointestinal: Soft, Non Tender and Non Distended
Extremities: Edema (BLE 2-3+ bilaterally) and Erythema (Right dorsal foot + large area of dark erythema to ankle)
Neurological: AO x 3
Objective Data
Lab Data
Lab Results
05/16/24 03:54
PT 17.3 Sec (11.4-14.6) H 05/15/24 05:11
INR 1.39 05/15/24 05:11
APTT 33.7 Sec (23.4-35.0) 05/15/24 05:11
Estimated Creat Clear 28 ml/min 05/18/24 04:20
Total Bilirubin 0.7 mg/dl (0.2-1.3) 05/15/24 05:11
AST 44 U/L (14-36) H 05/15/24 05:11
ALT 42 U/L (0-35) H 05/15/24 05:11
Alkaline Phosphatase 81 U/L (38-126) 05/15/24 05:11
Most recent labs reviewed.
Micro Results:
05/17/24 16:42 Body Fluid Culture - Preliminary
Pleural Fluid No Growth After 18-24 Hours
Gram Stain - Preliminary
05/15/24 08:26 Blood Culture - Preliminary
Blood/Venous No Growth in 72 hours- Final report to follow
05/15/24 15:00 MRSA Screen - Final
Nose No Methicillin Resistant Staphylococcus aureus isolated.
05/16/24 CXR: Slightly increased right midlung opacity which could represent pneumonia. Right greater than left basilar opacity again identified which could represent subsegmental atelectasis and/or pneumonia and bilateral pleural effusions.
05/14/24 CXR: Moderate right pleural effusion and small left pleural effusion, new since radiograph of March 16, 2024. Patchy parenchymal opacity within both lower lungs, with main differential considerations of atelectasis and/or pneumonia
--- NOTE | 2024-05-18 15:16 | PTCARENOTE ---
No change in assessment. remains on zeeshan.
[2024-05-18] MEDS: MAXIPIME 2000 MG IV (16:19)
[2024-05-18] MEDS: STERILE WATER FOR INJECTION 10 ML IV (16:19)
[2024-05-18 16:54] LABS: Blood Urea Nitrogen 25 mg/dl (7-17); Calcium 7.2 mg/dl (8.4-10.2); Carbon Dioxide 26 mmol/L (22-30); Chloride 101 mmol/L (98-107); Estimated Creatinine Clearance 28 ml/min; Glucose 138 mg/dl (70-99); Magnesium 1.4 mg/dl (1.6-2.3); Potassium 4.1 mmol/L (3.5-5.1); Sodium 132 mmol/L (135-145); eGFR 39.31
[2024-05-18] MEDS: MAGNESIUM SULFATE 100 IV (17:14)
[2024-05-18] MEDS: TYLENOL 650 MG PO (19:03)
[2024-05-18] MEDS: ROBITUSSIN 200 MG PO (19:03)
--- NOTE | 2024-05-18 20:00 | PTCARENOTE ---
Patient received in bed, AAOX3. Afib with BBC on monitor,low grade temp, He-Synephrine gtt restarted. Weak palpable pulses. +3 edema to lwer extremities. [place] wrap removed. Lungs diminished bibasilar, pulse ox 94%on room air. Abdomen round with
hypoactive bowel sounds. Temp sensing carr draining yellow urine. Sacral, buttock, dorsal feet dressings all changed. RDL PICC with Amiodarone gtt infusing as ordered. CHG bath given. Call zhao within reach
[2024-05-18] MEDS: MIRALAX PO (21:22)
[2024-05-18] MEDS: RESTORIL 15 MG PO (22:03)
[2024-05-19] VITALS (42 sets, daily range): BP systolic 75–132; BP diastolic 53–104; PULSE 117–135; BMI 29.5
[2024-05-19] MEDS: HEPARIN 5000 UNITS SC ×4 (00:02→23:04)
[2024-05-19] MEDS: NEO-SYNEPHRINE 250 IV ×2 (00:03→21:31)
--- NOTE | 2024-05-19 00:33 | PTCARENOTE ---
Patient reassessed, He gtt increased to 40 mcg/min. Remains on room air. No other changes in assessment
--- NOTE | 2024-05-19 04:15 | PTCARENOTE ---
patient reassessed, no changes in assessment, labs sent
[2024-05-19 04:26] LABS: Hematocrit 33.1 % (37.0-47.0); Mean Corp Hgb Conc. 33.2 g/dL (33.0-37.0); Mean Corpuscular Hgb 28.2 pg (27.0-31.0); Mean Corpuscular Volume 84.9 fL (81.0-99.0); Platelet Count 212 10^3/uL (130-400); Red Cell Dist. Width 17.4 % (11.5-14.5); White Blood Cell Count 10.4 10^3/uL (4.8-10.8)
[2024-05-19 04:55] LABS: ALT (SGPT) < 10 U/L (0-35); AST (SGOT) 22 U/L (14-36); Albumin 2.5 g/dl (3.5-5.0); Alkaline Phosphatase 107 U/L (38-126); Blood Urea Nitrogen 25 mg/dl (7-17); Calcium 7.2 mg/dl (8.4-10.2); Carbon Dioxide 25 mmol/L (22-30); Chloride 101 mmol/L (98-107); Estimated Creatinine Clearance 31 ml/min; Glucose 104 mg/dl (70-99); Potassium 4.3 mmol/L (3.5-5.1); Sodium 132 mmol/L (135-145); Total Bilirubin 0.6 mg/dl (0.2-1.3); Total Protein 4.8 g/dl (6.3-8.2); eGFR 43.27
[2024-05-19 06:03] LABS: Magnesium 2.3 mg/dl (1.6-2.3)
[2024-05-19] MEDS: SYNTHROID 150 MCG PO (07:52)
[2024-05-19] MEDS: KCL 20 MEQ PO ×2 (07:53→21:26)
[2024-05-19] MEDS: VIBRAMYCIN 100 MG PO ×2 (07:53→21:26)
[2024-05-19] MEDS: PROTONIX 40 MG PO (07:54)
[2024-05-19] MEDS: LOW STRENGTH ASPIRIN 81 MG PO (07:54)
[2024-05-19] MEDS: LIPITOR 10 MG PO (07:54)
[2024-05-19] MEDS: LIDOCAINE 4% PATCH 1 PATCH TOPICAL (07:55)
[2024-05-19] MEDS: LASIX 40 MG IV ×2 (07:55→16:11)
--- NOTE | 2024-05-19 08:15 | W.PN.INTV ---
Addendum entered and electronically signed by Melly Syed MD 05/19/24 12:51:
Patient remains critically ill on He-Synephrine at 40 mcg. Denies chest pain, lightheadedness, nausea, abdominal pain. Currently on room air. Have been unable to wean pressors. Negative fluid status noted
Vitals reviewed
Chest exam with mild crackles left base, greater than right
Irregular rhythm, no murmurs
Abdominal exam soft, nontender, no rebound
2+ edema, erythema lower extremity. Wrap in place
Neurologically moves all 4 extremities, no focal weakness
Data reviewed
A/P
At this time, although subjectively she looks better, she remains critically ill on He-Synephrine, unable to wean off
Crackles on exam noted
Moving forward
She continues with cefepime/doxycycline
To my exam, lower extremity appears to be improved, less erythematous, less edematous
Cardiac plan noted, plan for catheterization
Patient has not received contrast during this hospital stay, creatinine stable at 1.2
History of nephrectomy with solitary kidney noted
Remains on amiodarone
Continue with management per cardiology
Ongoing discussion regarding CODE STATUS. Son updated by primary service
Reviewed with critical care nursing, respiratory care, pharmacy, Cardiology
TCCT 31 min
Original Note:
Documented by User: Olivier Ott DO, Resident 05/19/24 10:42
Today's Communication / Plan
Recommendations
Left and right heart catheterization today
Assessment
-
Assessment: 89-year-old female with a past medical history of paroxysmal A-fib on flecainide, CKD III, hyperlipidemia, history of RA, history of renal cell carcinoma s/p left-sided nephrectomy, spinal stenosis, osteoporosis, left proximal tibial
fracture, MASHPEE, history of MARIA DE JESUS, hypothyroidism, colon polyps, hypertension, history of shingles (2022) and history of myasthenia gravis who is currently managed in the ICU for CHF and cellulitis of the right foot.
Last 24 hours:
� Being managed in ICU
� Currently on 20 of He-Synephrine
� WBC 10.4, hemoglobin 11, platelets 212, sodium 132, potassium 4.3, BUN 25, creatinine 1.2, magnesium 2.3
- BNP- 68679
� Peripheral vascular ultrasound negative for DVT. Lung VQ scan shows low probability for pulmonary embolus. Echo showed EF of 30 to 35%
� Negative 461 mL this a.m. Continue to monitor ins and outs
� Per cardiology, plan for right and left heart catheterization today
�1100 mL of straw-colored pleural fluid drained 05/17 during thoracentesis, transudative with elevated white blood cell count
Impression:
#Sepsis in the setting of A-fib versus cellulitis
#Acute HFpEF exacerbation
#Right foot cellulitis
#Hypokalemia
#Anemia
#Hyponatremia
#ARABELLA
#Transaminitis
#Hypothyroidism
#Hypertension
#Osteoporosis
#History of myasthenia gravis
#History of renal cell carcinoma status post left-sided nephrectomy
Plan:
�Continue diuresis of Lasix IV twice daily. Continue to monitor ins and outs
� Goal of slightly negative fluid balance in the setting of sepsis
� Continue He-Synephrine, currently 20 mg. Wean as possible
� Echo completed on 05/16, LVEF showed ejection fraction of 30 to 35% enlarged RV with reduced function, moderate TR. normal PASP. last echo 02/2024 showed LVEF of 50 to 60%
� Continue to monitor and control heart rate. Currently on 400 p.o. daily of amiodarone. Cardiology started IV amiodarone on 05/16 for additional support
Per cardiology patient will undergo right and left heart catheterization today. Limited ability to start GDMT due to sepsis.
Repeat chest x-ray tomorrow
� Chest x-ray showed volume overload with bilateral pleural effusions, right sided greater than left.
� Thoracentesis of right lung completed on 05/17. 1.1 L of straw-colored fluid drained. Analysis showed transudative fluid with elevated white blood cell count
� Peripheral vascular ultrasound negative for DVT. Lung VQ scan shows low probability for pulmonary embolus
� Change cefazolin to cefepime right sided foot cellulitis. Continue doxycycline 100 mg twice daily.
� Blood culture on 05/15 negative. MRSA negative.
�Continue to trend WBC and monitor for fever
� Renally adjust all medications. Replete electrolytes as necessary
� Continue 20 mg oral potassium twice daily.
� Continue lidocaine patch for left shoulder pain and as needed Tylenol ordered.
� Continue DVT prophylaxis of heparin subcu
Full code
Subjective Dataa
Subjective Data
Date of Service:
Date of Service: May 19, 2024
Overnight patient reports no acute events. She states she still has mild shortness of breath when moving around but otherwise is comfortable.
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
Objective Data
Data Reviewed
Vital Signs / I&O / Oxygen:
Vital Signs
Temp Pulse Resp BP Pulse Ox
98.4 F 103 30 107/67 94
05/19/24 07:05 05/19/24 04:00 05/19/24 04:00 05/19/24 04:00 05/19/24 04:00
Intake and Output
05/18/24 05/19/24 05/20/24
06:59 06:59 06:59
Intake Total 1455.8 / 1495.1 1266.9 / 1312.2 330.6 / 330.6
Output Total 1485 / 1535 1855 / 1905 100 / 100
Balance -29.2 / -39.9 -588.1 / -592.8 230.6 / 230.6
SaO2 94
Nasal Cannula flow liters per 4
minute
Physical Exam
General: Comfortable
HEENT: Normocephalic and Anicteric
Cardiovascular: S1-S2 and Irregular Rhythm
Respiratory: Crackles
GI: Soft and Non Distended
Neurology: AO x 3
Skin: Warm and Dry
Labs/Micro/Reports
Lab Data
05/19/24 04:09
05/19/24 04:09
Microbiology
05/17/24 16:42 Pleural Fluid Body Fluid Culture - Preliminary
No Growth After 18-24 Hours
05/17/24 16:42 Pleural Fluid Gram Stain - Preliminary
05/15/24 08:26 Blood/Venous Blood Culture - Preliminary
No Growth in 72 hours- Final report to follow
05/15/24 15:00 Nose MRSA Screen - Final
No Methicillin Resistant Staphylococcus aureus isolated.

Documented by User: Melly Syed MD 05/19/24 12:47
Subjective Dataa
Subjective Data
Subjective:
Patient remains critically ill, on He-Synephrine at 40 mcg. Subjectively she is stable, cough improved. Denies chest pain, lightheadedness, dizziness, nausea, abdominal pain. Lower extremity persist. Unable to wean pressors at this time,
becomes hypotensive systolic pressure 70s to 80s
--- NOTE | 2024-05-19 08:29 | W.PN.CD ---
Today's Communication / Plan
-
cont IV lasix
discussed with team: will plan for L/RHC today to investigate etiology of new cardiomyopathy, and help guide pressors and diuresis
Impression / Plan
-
Grocery Team Member, Dr. Hall
Septic shock, in setting of cellulitis
-threat to life
-Abx and phenylephrine
-discussed with critical care team: unable to wean pressors
New cardiomyopathy with acute systolic HF
-Biventricular systolic dysfunction, LVEF 30-35%
-Possible rate related ananda with higher rates there is significant aberration and desynchrony
-GDMT is limited due to hypotension and need for pressors
-cont IV lasix with close monitoring of labs, tele
-discussed with team: will plan for L/RHC today to investigate etiology of new cardiomyopathy, and help guide pressors and diuresis
AFib with RVR
-h/o paroxysmal A fib
- CHADS2-VASc at least 4 (HF, age, gender)
- Watchman + ASA
- AF / AFL with RVR noted. Wide QS with faster rates - rate related bundle branch vs aberration.
-Still in AT vs AFL this am.
-S/p thoracentesis 05/17/24 -and the rates are better now.
- Flecainide no longer effective: now changed to amiodarone
- may need DCCV, but need to treat HF and infection first
- On IV amiodarone for better rate control
Hx VT details not available
-now on amiodarone
CKD3b
-s/p nephrectomy with soliatry kidney due to RCC
-monitor with diuresis
CCT 40 min
Physical Exam
Vital Signs/Labs
Vital Signs
Temp Pulse Resp BP Pulse Ox
98.4 F 103 30 107/67 97
05/19/24 07:05 05/19/24 04:00 05/19/24 04:00 05/19/24 04:00 05/19/24 08:07
05/18/24 05/19/24 05/20/24
06:59 06:59 06:59
Actual Weight 70.6 kg 75.6 kg
05/19/24 04:09
05/19/24 04:09
PT 17.3 Sec (11.4-14.6) H 05/15/24 05:11
INR 1.39 05/15/24 05:11
APTT 33.7 Sec (23.4-35.0) 05/15/24 05:11
Magnesium 2.3 mg/dl (1.6-2.3) 05/19/24 04:09
TSH 0.51 uIU/ml (0.47-4.68) 05/16/24 03:54
05/14/24 05/17/24 05/17/24
19:40 03:51 10:37
Stk-G-Tmaqsqocyby Pept [id number] Cancelled
05/18/24
04:20
Qge-G-Mhbgwigadso Pept [id number]
Physical Exam
Constitutional: No acute distress
EENT: Moist mucous membranes
Cardiovascular: Rhythm/rate is irregular, Pedal edema present, JVD present and Systolic murmur present
Respiratory: Respiratory effort normal and Lungs clear to auscul.
Neuro/Psych: AO x 3
Data Reviewed
-
Date of Service: May 19, 2024
EKG: Other (Tele: A fib 100-110s)
Labs: Labs Reviewed by me
Critical Care Time (in minutes): 40
--- NOTE | 2024-05-19 09:22 | PTCARENOTE ---
Pt received in bed @ 0700. AAOx3. Hard of hearing. LE weakness. Afebrile. 98% on room air. Crackles b/L bases auscultated. Occasional dry cough without productive, pt states improved from last night. Atrial Fibrillation on compliance monitor.
Amiodarone gtt infusing @ maintenance dose of 0.5 mg/min per Dr. Huitron. Neosynephrine gtt infusing @ 40 mcg/min to maintain SBP > 90. +2 pitting LE edema. Thigh high triny wraps applied for compression. Palpable pedal pulses. Bandages C/D/I. Pt with
small formed bowel movement. Nava with yellow output. Right DL PICC with gtt's infusing. Pt made NPO for cardiac cath today.
--- NOTE | 2024-05-19 09:37 | W.PN.HOSP.TC ---
Today's Communication/Plan
-
c/w ABx
Plan for heart cath,
Assessment / Plan
Assessment / Plan
Physical Exam
General:No Apparent Distress
HEENT: NormoCephalic, Moist mucous membranes and Atraumatic
Respiratory: much less Basal rales
Cardiac: S1/S2, Irregular Rhythm, Tachycardia,
GI: Soft, Non Tender, Non Distended and Normal Bowel Sounds;
Rectal: No bleed
Musculoskeletal: much less + edema, Tubigrip on both legs
Psych, calm, pleasant
Neuro: Awake alert oriented x 3, follows commands, no tremor
Assessment and plan
# Acute on chronic heart failure with preserved ejection fraction
Persistent hypotension, combination of sepsis and cardiogenic shock
Doubt septic shock
Continue with rate control, IV amiodarone gtt
On Phenylephrine gtt
Echo showed LVEF 30-35%, Enlarged RV with reduced function, Moderate TR. Normal PASP. Compared to 03/14/24: LV and RV dysfunction are new. Moderate TR is new.
V-Q scan of lungs low probability. US of legs no DVT
Plan for L&R HC 05/19
Appreciate cardiology and ICU doctors help
# Bilateral pleural effusions, right sided greater than left.
s/p thoracentesis of right lung completed on 05/17. 1.1 L of straw-colored fluid drained. Analysis showed transudative fluid with elevated white blood cell count
Post thoracentesis re-expansion acute pulmonary edema, improved with Lasix and O2
� Peripheral vascular ultrasound negative for DVT. Lung VQ scan shows low probability for pulmonary embolus
# History of paroxysmal A-fib, uncontrolled
Status post Watchman device
Status post cardioversion in February 2024
Continue with amiodarone drip. Now off flecainide
# Right foot cellulitis
Less edema in legs noted with diuretics
Continue with IV cefazolin, doxycycline.
negative blood culture
Consulted ID, help appreciated
# hypokalemia
replaced
Added oral KCl BID.
# Hypomagnesemia, replace
# ARABELLA creatinine on admission 1.7. Last creatinine 1.3 on May 05
CKD 3B
Status post left nephrectomy
Monitored renal function.
Monitored for retention
Creatinine is coming down, d/w hamper maker machine convention worker, nothing to add while stable, consult if worsening function.
#Paroxysmal atrial fibrillation with rapid ventricular rate
Status post Watchman device
03/12 evening patient went into RVR with heart rate in 190-200 range, patient asymptomatic at that time, rapid response was called
Status post ERLINDA cardioversion 03/14/2024.
Continue Coreg 12.5 twice daily and Tambocor 50 mg every 12
#Mild Thrombocytopenia- Resolved
#Mild Hyponatremia-Better
No confusion
#Primary Hypertension
On pressure support now -
#Bronchiectasis
#GERD-Continue Protonix
#Hyperlipidemia-Continue statin
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
#History of surgery for pulmonary nodule
#History of neuropathy
#Sensorineural hearing loss
# History of osteoarthritis
#Spinal Stenosis
#History of Hysterectomy
#History of Parathyroid node resection
#History of Left nephrectomy for malignancy
#Full code
#DVT prophylaxis�Lovenox
Total time spent to see the patient, examining the patient, review data and lab results, discuss treatment plan with patient, nursing staff around 55 minutes
Anticipated Discharge: > 48 hours
Subjective/Interval History
-
Date of Service: May 19, 2024
No chest pain
No sob
Objective Data
-
Labs:
Laboratory Results
05/19/24
04:09
WBC 10.4
Hgb 11.0 L
Hct 33.1 L
Plt Count 212
Sodium 132 L
Potassium 4.3
Chloride 101
Carbon Dioxide 25
BUN 25 H
Creatinine 1.2 H
Glucose 104 H
Calcium 7.2 L
Total Bilirubin 0.6
AST 22
ALT < 10
Alkaline Phosphatase 107
Vital Signs:
Vital Signs
Temp Pulse Resp BP Pulse Ox
98.4 F 103 30 107/67 98
05/19/24 07:05 05/19/24 04:00 05/19/24 04:00 05/19/24 04:00 05/19/24 08:57
I&O
05/18/24 05/19/24 05/20/24
06:59 06:59 06:59
Intake Total 1455.8 / 1495.1 1266.9 / 1312.2 359.3 / 359.3
Output Total 1485 / 1535 1855 / 1905 425 / 425
Balance -29.2 / -39.9 -588.1 / -592.8 -65.7 / -65.7
--- NOTE | 2024-05-19 10:29 | W.PN.ID1 ---
Date of Service
Date of Service: May 19, 2024
Today's Communication
Continue cefepime and po doxy,
Assessment / Plan
# Right foot cellulitis with ruptured blister from edema
# PNA
# Fever trending down
# Leukocytosis resolved
- Pleural fluid - transudative, cx neg to date
- Foot cellulitis improved today
- Continue cefepime (d2)
-Continue doxycycline po (d4)
- Follow temps
# Acute CHF, EF 30-35%
# Afib with RVR
# Shock weaning 1 pressor
- Continue ICU support
- For cardiac cath today
Hypertension
HLD
Paroxysmal atrial fibrillation status post cardioversion
Status post Watchman procedure
Bronchiectasis
Hypothyroidism
CKD3
Bilateral proximal tibia fractures
Chief Complaint
-: Cellulitis
Subjective / Review of Systems
Foot wound is sore.
Vital Signs / Physical Exam
Vital Signs
Vital Signs
Temp Pulse Resp BP Pulse Ox
98.4 F 103 30 107/67 98
05/19/24 07:05 05/19/24 04:00 05/19/24 04:00 05/19/24 04:00 05/19/24 08:57
Physical Exam
Constitutional: No Acute Distress
Cardiovascular: Irregular Rate and S1/S2
Pulmonary: Rales (bibases)
Gastrointestinal: Soft, Non Tender and Non Distended
Extremities: Edema (BLE 2-3+ bilaterally) and Erythema (Right dorsal foot erythema decreased)
Wound: Other (Right foot wound stable)
Neurological: AO x 3
Objective Data
Lab Data
Lab Results
05/19/24 04:09
05/19/24 04:09
PT 17.3 Sec (11.4-14.6) H 05/15/24 05:11
INR 1.39 05/15/24 05:11
APTT 33.7 Sec (23.4-35.0) 05/15/24 05:11
Estimated Creat Clear 31 ml/min 05/19/24 04:09
Total Bilirubin 0.6 mg/dl (0.2-1.3) 05/19/24 04:09
AST 22 U/L (14-36) 05/19/24 04:09
ALT < 10 U/L (0-35) 05/19/24 04:09
Alkaline Phosphatase 107 U/L (38-126) 05/19/24 04:09
Most recent labs reviewed.
Micro Results:
05/15/24 08:26 Blood Culture - Preliminary
Blood/Venous No Growth in 4 days- Final report to follow
05/17/24 16:42 Body Fluid Culture - Preliminary
Pleural Fluid No Growth After 18-24 Hours
Gram Stain - Preliminary
05/15/24 15:00 MRSA Screen - Final
Nose No Methicillin Resistant Staphylococcus aureus isolated.
05/16/24 CXR: Slightly increased right midlung opacity which could represent pneumonia. Right greater than left basilar opacity again identified which could represent subsegmental atelectasis and/or pneumonia and bilateral pleural effusions.
05/14/24 CXR: Moderate right pleural effusion and small left pleural effusion, new since radiograph of March 16, 2024. Patchy parenchymal opacity within both lower lungs, with main differential considerations of atelectasis and/or pneumonia
--- NOTE | 2024-05-19 12:20 | PTCARENOTE ---
Pt reassessed. Attempted to wean Neosynephrine gtt to 20 mcg/min. Next BP 75/53. Neosynephrine gtt increased back to 40 mcg/min per order. Amiodarone gtt infusing @ 0.5 mg/min. Pt NPO awaiting cardiac cath.
--- NOTE | 2024-05-19 15:00 | CM ---
CM following re: discharge planning.
Discussed in rounds, reviewed pt's chart, met with pt. Per Rounds meeting, for cardiac cath today, continue supportive care.
Pt reports she has been at [facility] since 03/19/24 and was scheduled to be discharged home on Thursday05/18/24 with [facility] services, 24/ caregiver services. Pt reports she lives alone, has 3 supportive children, son Vasquez arranging caregivers services
and they will be available upon the discharge. Pt stated that hospital bed already delivered to her home daughter Lewis was at home and accepted delivery. Pt reports she has a walker, transport chair, hospital bed, tray. Pt made it very clear she
will not return back to [facility] and she is requested she will return back home at discharge with [facility], 08/09 caregiver services and family support.
Pt's address is: [address] [place] [address], has 2 steps to enter.
[facility] liaison following.
[facility] fax: [phone]
D/C plan: per pt's strong request, home with [facility], 24/7 caregiver services and family support.
CM will follow with discharge plan updates as hospitalization progresses
[2024-05-19] MEDS: CORDARONE 518 MG IV (16:10)
[2024-05-19] MEDS: MAXIPIME 2000 MG IV (16:11)
[2024-05-19] MEDS: STERILE WATER FOR INJECTION 10 ML IV (16:11)
--- NOTE | 2024-05-19 18:38 | PTCARENOTE ---
taken to medical lab director by medical lab director staff. meds continue. on room air.
--- NOTE | 2024-05-19 19:47 | ITS.CL.CATH ---
Echo Vascular Technologist - Catheterization
Cardiac Catheterization
Procedure Report:
CARDIAC CATHETERIZATION REPORT
Date of Procedure: 05/19/2024
Referring: Raman Huitron M.D., Ph.D.
Indication: New cardiomyopathy.
PROCEDURE:
1. Right heart catheterization.
2. Coronary angiography.
3. Left heart catheterization.
A total of 8 minutes of procedural/moderate sedation was utilized. An independent electromedical equipment repairer was present to assist with and help manage the patient's level of consciousness and physiologic status.
ACCESS:
1. 6 [place] right radial artery using a modified Seldinger technique.
2. 5 [place] left antecubital vein using a previously placed IV.
CATHETERS:
1. 5 [place] balloon wedge.
2. 5 [place] JL 3.5.
3. 5 [place] JR.
HEMODYNAMIC DATA
Weight (kg): 75.3
AO (s/d/x, mmHg): 113/76/91
LV (s/x, mmHg): 117/20
PCWP (a/v/x, mmHg): 32/31/25
PA (s/d/x, mmHg): 49/30/36
RV (s/x, mmHg): 49/18
RA (a/v/x, mmHg): 25/23/18
SVC SvO2 (%): 55.3
IVC SvO2 (%): Not obtained.
RA SvO2 (%): Not obtained.
RV SvO2 (%): Not obtained.
PA SvO2 (%): 55.1
SaO2 (%): 91.4
Hbg (g/dL): 11.3
ERMA
CO (L/min): 3.52
CI (L/min/m2): 1.97
Thermodilution
CO (L/min): Not performed.
CI (L/min/m2): Not performed.
TPG (mmHg): 11
PVR (Abbasi Units): 3.125
SVR (dynes*seconds*cm^-5): 1659
AVO2 Diff (Volume %): 5.58
AV gradient (x, mmHg): None.
AV area (cm2): Normal.
MV gradient (x, mmHg): Not obtained.
MV area (cm2): Not obtained.
LEFT VENTRICULOGRAPHY: Not performed.
AORTOGRAPHY: Not performed.
CORONARY ANGIOGRAPHY
Dominance: Right.
Left Main: Normal size, bifurcating vessel. There is no coronary artery disease.
LAD: Normal size vessel giving rise to 2 diagonals. There is no coronary artery disease.
Ramus: Congenitally absent.
Circumflex: Normal size vessel that essentially a single obtuse marginal. There is no coronary artery disease. The distal vessel is severely tortuous.
RCA: Normal size, dominant vessel. There is no coronary artery disease.
INTERVENTIONS
None.
Closure Device: Vascular band for the right radial artery, manual pressure for the left antecubital vein.
Radiation dose (mGy): 234.87
DAP (cm2.Gy): 19.2246
Fluoroscopy time (minutes): 2.6
CONCLUSIONS:
1. Right dominant circulation with no coronary artery disease.
2. Moderate to severely elevated filling pressures (LVEDP = 20 mmHg, PCWP = 25 mmHg at 75.3 kg).
3. Low normal to mildly depressed cardiac function (cardiac index 1.97 L/min/m�, a VO2 difference = 5.58 volume %).
4. Mild, precapillary and postcapillary pulmonary hypertension (mean PA = 36 mmHg, PCWP = 25 mmHg, CO = 3.52 L/min, PVR = 3.125 Abbasi units).
RECOMMENDATIONS:
1. Expectant management after cardiac catheterization via right radial and left antecubital approach.
2. Limited weight bearing on the right wrist for one week.
3. GDMT as hemodynamics will tolerate.
4. Focus on atrial fibrillation rate control.
Copy to: Raman Huitron M.D., Ph.D., Glen Lomeli D.O., Juvencio Hall M.D.
Tip Dwyer DO, FACC, FACP
[2024-05-19] MEDS: ROBITUSSIN 200 MG PO (21:25)
[2024-05-19] MEDS: MIRALAX 17 GRAMS PO (21:26)
--- NOTE | 2024-05-19 21:54 | PTCARENOTE ---
received pt from metallurgical lab technician. rt radial t-band in place- removing air per orders . see worklist. left brachial dsg cdi. no hematomas bilaterally- remains on amio and zeeshan gtts. afib 120's. afebrile bp wnl ax3- carr draining light clear yellow. lungs
are diminished throughout. pt meds given. triny wraps from b/l legs removed for hs- chg bath given with mouth care.
[2024-05-19] MEDS: RESTORIL 15 MG PO (23:03)
--- NOTE | 2024-05-19 23:40 | PTCARENOTE ---
zeeshan weaned to 20 . afib 120's temp 99.9 will give Tylenol
[2024-05-19] MEDS: TYLENOL 650 MG PO (23:43)
[2024-05-20] VITALS (50 sets, daily range): BP systolic 87–137; BP diastolic 49–106; BMI 29.0
--- NOTE | 2024-05-20 02:40 | PTCARENOTE ---
rt radial and left brachial sites wnl see worklist zeeshan remains at 20. amio running per orders. carr draining clear yellow. [id number]. remains on room air. lungs diminished- occasional cough. no distress. foot dressings changed.
[2024-05-20] MEDS: SYNTHROID 150 MCG PO (04:17)
--- NOTE | 2024-05-20 04:24 | PTCARENOTE ---
zeeshan gtt off- amio still infusing labs sent. no change in assessment
[2024-05-20 04:34] LABS: Hematocrit 33.6 % (37.0-47.0); Mean Corp Hgb Conc. 32.7 g/dL (33.0-37.0); Mean Corpuscular Hgb 27.8 pg (27.0-31.0); Mean Corpuscular Volume 85.1 fL (81.0-99.0); Mean Platelet Volume 10.4 fL (7.4-10.4); Platelet Count 195 10^3/uL (130-400); Red Blood Cell Count 3.95 10^6/uL (4.20-5.40); Red Cell Dist. Width 17.4 % (11.5-14.5); White Blood Cell Count 8.5 10^3/uL (4.8-10.8)
[2024-05-20 04:57] LABS: Blood Urea Nitrogen 23 mg/dl (7-17); Calcium 7.2 mg/dl (8.4-10.2); Carbon Dioxide 26 mmol/L (22-30); Chloride 101 mmol/L (98-107); Estimated Creatinine Clearance 33 ml/min; Glucose 87 mg/dl (70-99); Potassium 4.5 mmol/L (3.5-5.1); Sodium 133 mmol/L (135-145); eGFR 48.03
[2024-05-20] MEDS: ROBITUSSIN 200 MG PO ×2 (05:06→16:34)
--- NOTE | 2024-05-20 06:02 | PTCARENOTE ---
remains off of zeeshan gtt- t max was 100.1- medicated with tylenol. cath procedure n/v checks wnl. room air. afib 110-115 on amio gtt
[2024-05-20] MEDS: HEPARIN 5000 UNITS SC ×3 (08:10→23:15)
[2024-05-20] MEDS: LIPITOR PO (08:11)
[2024-05-20] MEDS: VIBRAMYCIN PO (08:11)
[2024-05-20] MEDS: PROTONIX PO (08:11)
[2024-05-20] MEDS: LOW STRENGTH ASPIRIN PO (08:11)
[2024-05-20] MEDS: KCL 20 MEQ PO (08:12)
[2024-05-20] MEDS: LASIX 40 MG IV ×2 (08:12→16:36)
[2024-05-20] MEDS: LIDOCAINE 4% PATCH 1 PATCH TOPICAL (08:15)
--- NOTE | 2024-05-20 08:15 | W.PN.INTV ---
Addendum entered and electronically signed by Melly Syed MD 05/20/24 12:31:
Patient seen and examined independently by myself. She has been weaned off pressors as of 3 in the morning overnight. Continues to have some mild shortness of breath with activity but otherwise feels generally well. Mild cough. Denies
hemoptysis, chest pain. Catheterization noted, elevated filling pressures noted. Negative fluid balance noted
Heart rate occasionally 110s to 120s. 96% on room air
Comfortable appearing, conversant in good spirits
Chest exam with mild crackles at the base otherwise good air exchange, no wheeze
Cardiac exam irregularly irregular, no murmurs
Abdominal exam soft, nontender
Extremities 1-2+ pitting edema, mild erythema, no warmth
Data reviewed
Chest x-ray with persistent bibasilar pleural-parenchymal disease, small pleural effusions
Creatinine 1.1
Catheterization results reviewed: PCWP 25, RVSP 44, cardiac index 1.97
A/P
Patient appears to be moving in the right direction
Appreciate cardiology correspondence
He-Synephrine has been weaned off as of 3 AM
Amiodarone continues
Continue with diuresis as able, follow electrolytes
Potassium 4.5, would prefer to discontinue potassium and continue to follow and supplement as needed
Remains on antibiotics, cefepime/doxycycline
Eventual transition to oral regimen. ID following
Remains on DVT prophylaxis: Subcutaneous heparin
Remains on aspirin therapy 81 mg
Reviewed with critical care nursing, respiratory care, pharmacy
Reviewed with primary service
Okay for transfer out of ICU. We will sign off. Please call with questions
Original Note:
Today's Communication / Plan
Recommendations
Discontinue potassium twice daily
Continue Lasix
Continue antibiotics
Assessment
-
Assessment: 89-year-old female with a past medical history of paroxysmal A-fib on flecainide, CKD III, hyperlipidemia, history of RA, history of renal cell carcinoma s/p left-sided nephrectomy, spinal stenosis, osteoporosis, left proximal tibial
fracture, U[place], history of MARIA DE JESUS, hypothyroidism, colon polyps, hypertension, history of shingles (2022) and history of myasthenia gravis who is currently managed in the ICU for CHF and cellulitis of the right foot.
Last 24 hours:
� Being managed in ICU
� No longer on He-Synephrine
� WBC 8.5, hemoglobin 11, platelets 195, sodium 133, potassium 4.5, BUN 23, creatinine 1.1
� Negative 2728.9 mL this a.m. Weight 74.3 kg, 3 kg down from admission. Continue to monitor ins and outs
� L/RHC on 05/19
�1100 mL of straw-colored pleural fluid drained 05/17 during thoracentesis, transudative with elevated white blood cell count
Impression:
#Sepsis in the setting of A-fib versus cellulitis
#Acute HFpEF exacerbation
#Right foot cellulitis
#Hypokalemia
#Anemia
#Hyponatremia
#ARABELLA
#Transaminitis
#Hypothyroidism
#Hypertension
#Osteoporosis
#History of myasthenia gravis
#History of renal cell carcinoma status post left-sided nephrectomy
Plan:
�Continue diuresis of Lasix IV twice daily. Continue to monitor ins and outs
� Goal of slightly negative fluid balance in the setting of sepsis
� He-Synephrine discontinued this morning at 4 AM
� Echo completed on 05/16, LVEF showed ejection fraction of 30 to 35% enlarged RV with reduced function, moderate TR. normal PASP. last echo 02/2024 showed LVEF of 50 to 60%
� Continue to monitor and control heart rate. Currently on 400 p.o. daily of amiodarone. Cardiology started IV amiodarone on 05/16 for additional support
Right and left heart catheterization completed on 05/19. Right dominant circulation with no coronary artery disease. Moderate to severe elevated filling pressures�LVEDP 20, PCWP 25. Low normal to mildly depressed cardiac function with cardiac
index of 1.97. Mild precapillary and postcapillary pulmonary hypertension mean PA of 36.
Per cardiology, will likely wait at least 24 to 48 hours from heart catheterization to start GDMT. Continue diuresis in the meantime
Repeat chest x-ray today
� Thoracentesis of right lung completed on 05/17. 1.1 L of straw-colored fluid drained. Analysis showed transudative fluid with elevated white blood cell count
� Peripheral vascular ultrasound negative for DVT. Lung VQ scan shows low probability for pulmonary embolus
� Change cefazolin to cefepime right sided foot cellulitis. Continue doxycycline 100 mg twice daily. ID following, appreciate input
� Blood culture on 05/15 negative. MRSA negative.
�Continue to trend WBC and monitor for fever
� Renally adjust all medications. Replete electrolytes as necessary
� Discontinue 20 mg oral potassium twice daily.
� Continue lidocaine patch for left shoulder pain and as needed Tylenol ordered.
� Continue DVT prophylaxis of heparin subcu
Full code
Patient to be downgraded today
Subjective Dataa
Subjective Data
Date of Service:
Date of Service: May 20, 2024
Overnight patient reports no acute events. She states that she continues to feel clinically better. She still has mild shortness of breath when laying completely flat. She reports no headaches, nausea, vomiting, chest pain, abdominal pain or
numbness and tingling in extremities.
Chief Complaint: Clinical Lab Scientist Follow Up
Objective Data
Data Reviewed
Vital Signs / I&O / Oxygen:
Vital Signs
Temp Pulse Resp BP Pulse Ox
98.7 F 108 28 93/57 93
05/20/24 03:20 05/20/24 06:30 05/20/24 06:30 05/20/24 06:30 05/20/24 06:30
Intake and Output
05/19/24 05/20/24 05/21/24
06:59 06:59 06:59
Intake Total 1266.9 / 1312.2 1026.7 / 1026.7
Output Total 1855 / 1905 3525 / 352
Balance -588.1 / -592.8 -2498.3 / -2498.3
SaO2 93
Nasal Cannula flow liters per 4
minute
Physical Exam
General: Comfortable
HEENT: Normocephalic and Anicteric
Cardiovascular: S1-S2 and Irregular Rhythm
Respiratory: Crackles
GI: Soft and Non Distended
Neurology: AO x 3
Skin: Warm and Dry
Labs/Micro/Reports
Lab Data
05/20/24 04:09
05/20/24 04:09
Microbiology
05/17/24 16:42 Pleural Fluid Body Fluid Culture - Preliminary
No Growth After 48 Hours
05/17/24 16:42 Pleural Fluid Gram Stain - Preliminary
05/15/24 08:26 Blood/Venous Blood Culture - Preliminary
No Growth in 4 days- Final report to follow
--- NOTE | 2024-05-20 08:26 | W.PN.CD ---
Today's Communication / Plan
-
Continue diuresis
Start GDMT with low dose BB tomorrow if BPs tolerate
Continue IV Amio for rate control
OK to go to floor
Impression / Plan
-
[employer], Dr. Hall
New cardiomyopathy with acute systolic HF
-Biventricular systolic dysfunction, LVEF 30-35%
-RHC/LHC 05/19/24: RA 18, PCWP 25 @ 75.3 kg, CI 2.0. No coronary disease.
-Possible rate related vs stress cardiomyopathy in the setting of septic shock
-Add on GDMT in next 24h once further from needing pressors (stopped 05/20 early AM).
-Low dose BB tomorrow if BPs tolerate
-cont IV lasix with close monitoring of labs, tele
Septic shock, in setting of cellulitis, resolved
-threat to life
-Abx per primary
-Off pressors as of 05/20 AM
AFib with RVR
-h/o paroxysmal A fib
- CHADS2-VASc at least 4 (HF, age, gender)
- Watchman + ASA
- AF / AFL with RVR noted. Wide QS with faster rates - rate related bundle branch vs aberration.
-Still in AT vs AFL this am.
- Flecainide no longer effective: now changed to amiodarone
- may need DCCV, but need to treat HF and infection first
- On IV amiodarone for better rate control
Hx VT details not available
-now on amiodarone
CKD3b
-s/p nephrectomy with solitary kidney due to RCC
-monitor with diuresis
Subjective: RHC/LHC yesterday with RA 18, PCWP 25, CI 2.0. No coronary disease. Main complaint today is cough. She is off of vasopressors.
Physical Exam
Vital Signs/Labs
Vital Signs
Temp Pulse Resp BP Pulse Ox
98.7 F 108 28 93/57 93
05/20/24 03:20 05/20/24 06:30 05/20/24 06:30 05/20/24 06:30 05/20/24 06:30
05/19/24 05/20/24 05/21/24
06:59 06:59 06:59
Actual Weight 75.6 kg 74.3 kg
05/20/24 04:09
05/20/24 04:09
PT 17.3 Sec (11.4-14.6) H 05/15/24 05:11
INR 1.39 05/15/24 05:11
APTT 33.7 Sec (23.4-35.0) 05/15/24 05:11
Magnesium 2.3 mg/dl (1.6-2.3) 05/19/24 04:09
TSH 0.51 uIU/ml (0.47-4.68) 05/16/24 03:54
05/14/24 05/17/24 05/17/24
19:40 03:51 10:37
Ybp-D-Fyzwrqpcdfk Pept [id number] Cancelled
05/18/24
04:20
Est-C-Knklrwunbbx Pept [id number]
Physical Exam
Constitutional: No acute distress and Comfortable
Cardiovascular: Rhythm/rate is irregular, Pedal edema present and Murmur/rub/gallop absent
Respiratory: Respiratory effort normal and Crackles Present
Data Reviewed
-
Date of Service: May 20, 2024
Medical Decision Making: Reviewed Test Results, Independent Historian Assessment, Test Interpretation and Review of Case with other Provider
EKG: Tracing Personally Visualized and interpreted
Echo: Report Reviewed by me
X-Ray/CT/US/MRI/NUC/PET: Image Personally Visualized and interpreted
Labs: Labs Reviewed by me
--- NOTE | 2024-05-20 08:27 | W.PN.HOSP.TC ---
Today's Communication/Plan
-
Off pressure support but remains hypotensive
We might use Levophed at one point to keep pushing Lasix
Will continue to monitor and follow
Assessment / Plan
Assessment / Plan
Physical Exam
General:No Apparent Distress
HEENT: NormoCephalic, Moist mucous membranes and Atraumatic
Respiratory: much less Basal rales
Cardiac: S1/S2, Irregular Rhythm, Tachycardia,
GI: Soft, Non Tender, Non Distended and Normal Bowel Sounds;
Rectal: No bleed
Musculoskeletal: much less + edema, Tubigrip on both legs
Psych, calm, pleasant
Neuro: Awake alert oriented x 3, follows commands, no tremor
Assessment and plan
# Acute on chronic heart failure with preserved ejection fraction
Persistent hypotension, combination of sepsis and cardiogenic shock
Doubt septic shock
Continue with rate control, IV amiodarone gtt
On Phenylephrine gtt
Echo showed LVEF 30-35%, Enlarged RV with reduced function, Moderate TR. Normal PASP. Compared to 03/14/24: LV and RV dysfunction are new. Moderate TR is new.
V-Q scan of lungs low probability. US of legs no DVT
Plan for L&R HC 05/19
Appreciate cardiology and ICU doctors help
# Bilateral pleural effusions, right sided greater than left.
s/p thoracentesis of right lung completed on 05/17. 1.1 L of straw-colored fluid drained. Analysis showed transudative fluid with elevated white blood cell count
Post thoracentesis re-expansion acute pulmonary edema, improved with Lasix and O2
� Peripheral vascular ultrasound negative for DVT. Lung VQ scan shows low probability for pulmonary embolus
# History of paroxysmal A-fib, uncontrolled
Status post Watchman device
Status post cardioversion in February 2024
Continue with amiodarone drip. Now off flecainide
# Right foot cellulitis
Less edema in legs noted with diuretics
Continue with IV cefazolin, doxycycline.
negative blood culture
Consulted ID, help appreciated
# hypokalemia
replaced
Added oral KCl BID.
# Hypomagnesemia, replace
# ARABELLA creatinine on admission 1.7. Last creatinine 1.3 on May 05
CKD 3B
Status post left nephrectomy
Monitored renal function.
Monitored for retention
Creatinine is coming down, d/w bleach chlorinator implementation analyst, nothing to add while stable, consult if worsening function.
#Paroxysmal atrial fibrillation with rapid ventricular rate
Status post Watchman device
03/12 evening patient went into RVR with heart rate in 190-200 range, patient asymptomatic at that time, rapid response was called
Status post ERLINDA cardioversion 03/14/2024.
Continue Coreg 12.5 twice daily and Tambocor 50 mg every 12
#Mild Thrombocytopenia- Resolved
#Mild Hyponatremia-Better
No confusion
#Primary Hypertension
On pressure support now -
#Bronchiectasis
#GERD-Continue Protonix
#Hyperlipidemia-Continue statin
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
#History of surgery for pulmonary nodule
#History of neuropathy
#Sensorineural hearing loss
# History of osteoarthritis
#Spinal Stenosis
#History of Hysterectomy
#History of Parathyroid node resection
#History of Left nephrectomy for malignancy
#Full code
#DVT prophylaxis�Lovenox
Total time spent to see the patient, examining the patient, review data and lab results, discuss treatment plan with patient, nursing staff around 55 minutes
Anticipated Discharge: > 48 hours
Subjective/Interval History
-
Date of Service: May 20, 2024
No chest pain
No abdominal pain
Objective Data
-
Labs:
Laboratory Results
05/20/24
04:09
WBC 8.5
Hgb 11.0 L
Hct 33.6 L
Plt Count 195
Sodium 133 L
Potassium 4.5
Chloride 101
Carbon Dioxide 26
BUN 23 H
Creatinine 1.1 H
Glucose 87
Calcium 7.2 L
Vital Signs:
Vital Signs
Temp Pulse Resp BP Pulse Ox
98.7 F 108 28 93/57 93
05/20/24 03:20 05/20/24 06:30 05/20/24 06:30 05/20/24 06:30 05/20/24 06:30
I&O
05/19/24 05/20/24 05/21/24
06:59 06:59 06:59
Intake Total 1266.9 / 1312.2 1026.7 / 1026.7
Output Total 1855 / 1905 3525 / 3525
Balance -588.1 / -592.8 -2498.3 / -2498.3
[2024-05-20] MEDS: LIPITOR 10 MG PO (08:53)
[2024-05-20] MEDS: PROTONIX 40 MG PO (08:53)
[2024-05-20] MEDS: VIBRAMYCIN 100 MG PO ×2 (08:53→20:18)
[2024-05-20] MEDS: LOW STRENGTH ASPIRIN 81 MG PO (08:53)
--- NOTE | 2024-05-20 10:20 | W.PN.ID1 ---
Date of Service
Date of Service: May 20, 2024
Today's Communication
-Continue doxycycline po x 7d through 4/7 am. Orders placed.
-Continue cefepime 2g IV q24 x 5d through 05/22, then transition to cefdinir 300mg po bid through 05/24. Orders placed.
- ID will sign off. Call prn.
Assessment / Plan
# Right foot cellulitis with ruptured blister from edema
# PNA
# Fever resolved
# Leukocytosis resolved
- Pleural fluid - transudative, cx neg to date
- Foot cellulitis continues to improve. Continue with wound care and compression.
-Continue doxycycline po x 7d through 4/7 am. Orders placed
-Continue cefepime 2g IV q24 x 5d through 05/22, then transition to cefdinir 300mg po bid through 05/24. Orders placed.
- ID will sign off. Call prn.
# Acute CHF, EF 30-35%
# Afib
# s/p Shock
# Conditions RECORD LABEL INTERN
Hypertension
HLD
Paroxysmal atrial fibrillation status post cardioversion
Status post Watchman procedure
Bronchiectasis
Hypothyroidism
Hx Myasthenia gravis
CKD3
Bilateral proximal tibia fractures
Chief Complaint
-: Cellulitis
Subjective / Review of Systems
Feeling better today.
Vital Signs / Physical Exam
Vital Signs
Vital Signs
Temp Pulse Resp BP Pulse Ox
97.6 F 108 28 93/57 93
05/20/24 08:00 05/20/24 06:30 05/20/24 06:30 05/20/24 06:30 05/20/24 06:30
Physical Exam
Constitutional: No Acute Distress and Comfortable
Pulmonary: Clear (anteriorly) and Other (decreased BS bases)
Gastrointestinal: Soft, Non Tender, Non Distended and Normal Bowel Sounds
Extremities: Edema (BLE decreasing) and Erythema (Dorsal right foot erythema overall improving, more localized to mid foot dark hemorraghic wound.)
Wound: Other (Right foot ruptured blister wound with granulating tossue. )
Neurological: Awake
Objective Data
Lab Data
Lab Results
05/20/24 04:09
05/20/24 04:09
PT 17.3 Sec (11.4-14.6) H 05/15/24 05:11
INR 1.39 05/15/24 05:11
APTT 33.7 Sec (23.4-35.0) 05/15/24 05:11
Estimated Creat Clear 33 ml/min 05/20/24 04:09
Total Bilirubin 0.6 mg/dl (0.2-1.3) 05/19/24 04:09
AST 22 U/L (14-36) 05/19/24 04:09
ALT < 10 U/L (0-35) 05/19/24 04:09
Alkaline Phosphatase 107 U/L (38-126) 05/19/24 04:09
Most recent labs reviewed.
Micro Results:
05/15/24 08:26 Blood Culture - Final
Blood/Venous No Growth - Final Report
05/17/24 16:42 Body Fluid Culture - Preliminary
Pleural Fluid No Growth After 48 Hours
Gram Stain - Preliminary
05/15/24 15:00 MRSA Screen - Final
Nose No Methicillin Resistant Staphylococcus aureus isolated.
05/16/24 CXR: Slightly increased right midlung opacity which could represent pneumonia. Right greater than left basilar opacity again identified which could represent subsegmental atelectasis and/or pneumonia and bilateral pleural effusions.
05/14/24 CXR: Moderate right pleural effusion and small left pleural effusion, new since radiograph of March 16, 2024. Patchy parenchymal opacity within both lower lungs, with main differential considerations of atelectasis and/or pneumonia
--- NOTE | 2024-05-20 10:45 | PTCARENOTE ---
Pt received in bed @ 0700. AAOx3. Hard of hearing, hearing aids in place. Denying pain at this time. Scheduled lidocaine patch applied to left shoulder. Atrial Fibrillation on potline monitor. HR 90s - 120s at rest. Amiodarone gtt continues @ 0.5
mg/min. Received off pressors. SBP remains > goal of 90. +2 pitting LE and trunk edema. Gibran wraps applied to LE's. Pulses palpable. SaO2 97% on room air. Occasional harsh nonproductive cough, worse with laying flat. Crackles auscultated both bases.
(+) small bowel movement. Nava removed @ 10:00. Pt due to void by 16:00. Wound care completed to b/l feet and buttocks. Left brachial and right radial cath sites C/D/I.
--- NOTE | 2024-05-20 11:34 | PTCARENOTE ---
Pt assisted OOB to chair with rolling walker x1. New orders for IVU level of care.
--- NOTE | 2024-05-20 12:17 | CM ---
CM following re: discharge planning.
Discussed in rounds, reviewed pt's chart, met with pt. Per Rounds meeting, pt will be downgraded from ICU level of care, clinically improving.
Pt reports she has been at [facility] [place] since 03/19/24 and was scheduled to be discharged home on Thursday05/18/24 with [facility], 08/09 caregiver services. Pt reports she lives alone, has 3 supportive children, son Vasquez arranging caregivers services
and they will be available upon the discharge. Pt stated that hospital bed already delivered to her home daughter Lewis was at home and accepted delivery. Pt reports she has a walker, transport chair, hospital bed, tray. Pt made it very clear she
will not return back to [facility] [place] and she is requested she will return back home at discharge with [facility], 08/09 caregiver services and family support.
Pt's address is: [address] [place] [address], has 2 steps to enter.
[facility] liaison following.
C[facility]ina [place] fax: [phone]
D/C plan: per pt's strong request, home with [facility], 08/09 caregiver services and family support.
CM will follow with discharge plan updates as hospitalization progresses
[2024-05-20] MEDS: STERILE WATER FOR INJECTION 10 ML IV (16:29)
[2024-05-20] MEDS: MAXIPIME 2000 MG IV (16:31)
[2024-05-20] MEDS: LOPRESSOR 12.5 MG PO (16:37)
--- NOTE | 2024-05-20 18:21 | PTCARENOTE ---
Remains Atrial Fibrillation. Amiodarone gtt continues @ 0.5 mg/min. HR 130s - 150s. MAP > 65. New order for Lopressor 12.5mg PO Q6H. HR continued 120s - 140s. BP 106/78. Dr. Siu notified. New order for Digoxin 250mcg IV X1 now.
[2024-05-20] MEDS: LANOXIN 250 MCG IV (18:46)
[2024-05-20] MEDS: MIRALAX 17 GRAMS PO (20:18)
[2024-05-20] MEDS: CORDARONE 518 MG IV (20:46)
[2024-05-20] MEDS: RESTORIL 15 MG PO (22:45)
[2024-05-20] MEDS: TUMS CHEWABLE TABLET 200 MG PO (23:16)
[2024-05-21] VITALS (40 sets, daily range): BP systolic 81–134; BP diastolic 56–108; BMI 28.7
[2024-05-21] MEDS: LOPRESSOR PO (00:57)
[2024-05-21 04:17] LABS: Hematocrit 30.1 % (37.0-47.0); Hemoglobin 10.1 g/dL (12.0-16.0); Mean Corp Hgb Conc. 33.6 g/dL (33.0-37.0); Mean Corpuscular Hgb 28.5 pg (27.0-31.0); Platelet Count 176 10^3/uL (130-400); Red Blood Cell Count 3.54 10^6/uL (4.20-5.40); Red Cell Dist. Width 17.1 % (11.5-14.5); White Blood Cell Count 6.1 10^3/uL (4.8-10.8)
[2024-05-21 04:38] LABS: ALT (SGPT) < 10 U/L (0-35); AST (SGOT) 18 U/L (14-36); Albumin 2.1 g/dl (3.5-5.0); Alkaline Phosphatase 92 U/L (38-126); Blood Urea Nitrogen 22 mg/dl (7-17); Carbon Dioxide 26 mmol/L (22-30); Chloride 102 mmol/L (98-107); Direct Bilirubin 0.4 mg/dl (0.0-0.4); Estimated Creatinine Clearance 37 ml/min; Glucose 85 mg/dl (70-99); Magnesium 1.6 mg/dl (1.6-2.3); Potassium 4.3 mmol/L (3.5-5.1); Sodium 134 mmol/L (135-145); Total Bilirubin 0.5 mg/dl (0.2-1.3); Total Protein 4.4 g/dl (6.3-8.2); eGFR 53.85
[2024-05-21] MEDS: LOPRESSOR 12.5 MG PO ×3 (04:50→17:25)
[2024-05-21] MEDS: SYNTHROID 150 MCG PO (04:50)
--- NOTE | 2024-05-21 09:01 | W.PN.CD ---
Today's Communication / Plan
-
- Rate controlled with addition of digoxin.
- Discontinue amiodarone IV drip and use p.o. only.
- Hold digoxin if ventricular response rate is slow.
Impression / Plan
-
[employer], Dr. Hall
New cardiomyopathy with acute systolic HF
-Biventricular systolic dysfunction, LVEF 30-35%
-RHC/C 05/19/24: RA 18, PCWP 25 @ 75.3 kg, CI 2.0. No coronary disease.
-Possible rate related vs stress cardiomyopathy in the setting of septic shock
-Add on GDMT in next 24h once further from needing pressors (stopped 05/20 early AM).
-Low dose BB tomorrow if BPs tolerate
-cont IV lasix with close monitoring of labs, tele
Septic shock, in setting of cellulitis, resolved
-threat to life
-Abx per primary
-Off pressors as of 05/20 AM
AFib with RVR
-h/o paroxysmal A fib
- CHADS2-VASc at least 4 (HF, age, gender)
- Watchman + ASA
- AF / AFL with RVR noted. Wide QS with faster rates - rate related bundle branch vs aberration.
- A-fib with RVR noted. Difficult to control despite being on amnio drip and metoprolol.
- On high-dose amiodarone p.o. and IV drip along with metoprolol. Will add digoxin for better rate control.
- Flecainide no longer effective: now changed to amiodarone
- may need DCCV, but need to treat HF and infection first
- Will stop IV amiodarone and start p.o. Already loaded with enough amiodarone.
Hx VT details not available
-now on amiodarone
CKD3b
-s/p nephrectomy with solitary kidney due to RCC
-monitor with diuresis
Subjective: RHC/C 05/19 with RA 18, PCWP 25, CI 2.0. No coronary disease. Main complaint today is cough. She is off of vasopressors.
Physical Exam
Vital Signs/Labs
Vital Signs
Temp Pulse Resp BP Pulse Ox
97.5 F 103 30 115/78 95
05/21/24 07:00 05/21/24 08:00 05/21/24 08:00 05/21/24 08:00 05/21/24 08:00
05/20/24 05/21/24 05/22/24
06:59 06:59 06:59
Actual Weight 74.3 kg 73.4 kg
05/21/24 03:48
05/21/24 03:48
PT 17.3 Sec (11.4-14.6) H 05/15/24 05:11
INR 1.39 05/15/24 05:11
APTT 33.7 Sec (23.4-35.0) 05/15/24 05:11
Magnesium 1.6 mg/dl (1.6-2.3) 05/21/24 03:48
TSH 0.51 uIU/ml (0.47-4.68) 05/16/24 03:54
05/14/24 05/17/24 05/17/24
19:40 03:51 10:37
Nhm-E-Rweclfskyuh Pept [id number] Cancelled
05/18/24
04:20
Veb-M-Nfoisxfiypb Pept [id number]
Physical Exam
Constitutional: No acute distress and Comfortable
EENT: Anicteric and Moist mucous membranes
Cardiovascular: Rhythm/rate is irregular, Systolic murmur present and Diastolic murmur present
Respiratory: Respiratory effort normal, Wheeze Absent and Crackles Absent
GI: Soft, Non tender and Normal bowel sounds
Neuro/Psych: Alert, Oriented and AO x 3
Data Reviewed
-
Date of Service: May 21, 2024
Medical Decision Making: Reviewed Test Results, Test Interpretation and Review of Case with other Provider
EKG: Tracing Personally Visualized and interpreted
Echo: Report Reviewed by me
Medical Tests (PFT, Pathology etc): Image Personally Visualized and interpreted
Labs: Labs Reviewed by me
Old Records: Reviewed
Critical Care Time (in minutes): 35
[2024-05-21] MEDS: LOW STRENGTH ASPIRIN 81 MG PO (09:06)
--- NOTE | 2024-05-21 09:11 | W.PN.ID1 ---
Date of Service
Date of Service: May 21, 2024
Today's Communication
Continue antibiotics. See below ...
Assessment / Plan
# Right foot cellulitis with ruptured blister from edema
# PNA
# Fever - resolved
# Leukocytosis - resolved
- Pleural fluid - transudative, cx neg to date
- Foot cellulitis continues to improve. Continue with wound care and compression.
-Continue doxycycline po x 7d through 4/7 am. Orders placed
-Continue cefepime 2g IV q24 x 5d through 05/22, then transition to cefdinir 300mg po bid through 05/24. Orders placed.
# Acute CHF, EF 30-35%
# Afib
# s/p Shock
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
Hypertension
HLD
Paroxysmal atrial fibrillation status post cardioversion
Status post Watchman procedure
Bronchiectasis
Hypothyroidism
Hx Myasthenia gravis
CKD3
Bilateral proximal tibia fractures
Chief Complaint
-: Cellulitis
Subjective / Review of Systems
Patient seen and examined. Denies lower extremity pain. Notes decreased lower extremity edema.
Review of Systems: No Fever, No Chills and No Cough
Vital Signs / Physical Exam
Vital Signs
Vital Signs
Temp Pulse Resp BP Pulse Ox
97.5 F 103 30 115/78 95
05/21/24 07:00 05/21/24 08:00 05/21/24 08:00 05/21/24 08:00 05/21/24 08:00
Physical Exam
Constitutional: No Acute Distress and Comfortable
Pulmonary: Clear (anteriorly) and Non Labored
Gastrointestinal: Soft, Non Tender and Non Distended
Extremities: Edema (BLE decreasing; 2+) and Erythema (Dorsal right foot erythema overall improving, more localized to mid foot dark hemorraghic wound.)
Wound: Other (Right foot ruptured blister wound with granulating tossue. )
Neurological: Awake and Alert
Psychological: Calm
Objective Data
Lab Data
Lab Results
05/21/24 03:48
05/21/24 03:48
PT 17.3 Sec (11.4-14.6) H 05/15/24 05:11
INR 1.39 05/15/24 05:11
APTT 33.7 Sec (23.4-35.0) 05/15/24 05:11
Estimated Creat Clear 37 ml/min 05/21/24 03:48
Total Bilirubin 0.5 mg/dl (0.2-1.3) 05/21/24 03:48
AST 18 U/L (14-36) 05/21/24 03:48
ALT < 10 U/L (0-35) 05/21/24 03:48
Alkaline Phosphatase 92 U/L (38-126) 05/21/24 03:48
Most recent labs reviewed.
Micro Results:
05/17/24 16:42 Body Fluid Culture - Final
Pleural Fluid No Growth After 72 Hours
Gram Stain - Final
05/15/24 08:26 Blood Culture - Final
Blood/Venous No Growth - Final Report
05/15/24 15:00 MRSA Screen - Final
Nose No Methicillin Resistant Staphylococcus aureus isolated.
05/16/24 CXR: Slightly increased right midlung opacity which could represent pneumonia. Right greater than left basilar opacity again identified which could represent subsegmental atelectasis and/or pneumonia and bilateral pleural effusions.
05/14/24 CXR: Moderate right pleural effusion and small left pleural effusion, new since radiograph of March 16, 2024. Patchy parenchymal opacity within both lower lungs, with main differential considerations of atelectasis and/or pneumonia
[2024-05-21] MEDS: LASIX 40 MG IV ×2 (09:16→16:33)
[2024-05-21] MEDS: LIDOCAINE 4% PATCH 1 PATCH TOPICAL (09:16)
[2024-05-21] MEDS: HEPARIN 5000 UNITS SC ×2 (09:16→16:33)
[2024-05-21] MEDS: VIBRAMYCIN 100 MG PO ×2 (09:16→21:11)
[2024-05-21] MEDS: PROTONIX 40 MG PO (09:16)
[2024-05-21] MEDS: LIPITOR 10 MG PO (09:16)
--- NOTE | 2024-05-21 09:33 | W.PN.HOSP.TC ---
Today's Communication/Plan
-
She is having nausea, I think from ABx. Will add Carafate. If nausea becomes severe, will stop Doxy
Tachycardia, on Amiodarone gtt, Could not tolerate Toprol last night due to low BP, received it this morning.
Assessment / Plan
Assessment / Plan
Physical Exam
General:No Apparent Distress
HEENT: NormoCephalic, Moist mucous membranes and Atraumatic
Respiratory: much less Basal rales
Cardiac: S1/S2, Irregular Rhythm, Tachycardia.
GI: Soft, Non Tender, Non Distended and Normal Bowel Sounds;
Rectal: No bleed
Musculoskeletal: much less + edema, skin excoriation right dorsal foot, intact blister left dorsal foot
Psych, calm, pleasant
Neuro: Awake alert oriented x 3, follows commands, no tremor
Assessment and plan
# Acute on chronic heart failure with preserved ejection fraction
Persistent hypotension, combination of sepsis and cardiogenic shock
Doubt septic shock but ok to treat as such. Now bP seems to stabilize, off Phenylephrine gtt
Continue with rate control, IV amiodarone gtt
Echo showed LVEF 30-35%, Enlarged RV with reduced function, Moderate TR. Normal PASP. Compared to 03/14/24: LV and RV dysfunction are new. Moderate TR is new.
V-Q scan of lungs low probability. US of legs no DVT
S/P Cath L & R side, No blocked CAD, elevated filling pressures.
Appreciate cardiology and ICU doctors help
# Bilateral pleural effusions, right sided greater than left.
s/p thoracentesis of right lung completed on 05/17. 1.1 L of straw-colored fluid drained. Analysis showed transudative fluid with elevated white blood cell count
Post thoracentesis re-expansion acute pulmonary edema, improved with Lasix and O2
� Peripheral vascular ultrasound negative for DVT. Lung VQ scan shows low probability for pulmonary embolus
# History of paroxysmal A-fib, uncontrolled
Status post Watchman device
Status post cardioversion in February 2024
Continue with amiodarone drip. Now off flecainide
Started on metoprolol orally
#GERD-Continue Protonix
She is having nausea, I think from ABx
Will add Carafate
If nausea becomes severe, will stop Doxy
# Right foot cellulitis
Improving well. Right dorsal foot ( healing skin excoriation). Left dorsal foot, intact blister
Less edema in legs noted with diuretics
Continue with IV cefepime & doxycycline then oral Cefdinir.
Negative blood culture
Consulted ID, help appreciated
# hypokalemia
replaced
Added oral KCl BID.
# Hypomagnesemia, replaced
# ARABELLA creatinine on admission 1.7. Last creatinine 1.3 on May 05
CKD 3B
Status post left nephrectomy
Monitored renal function.
Monitored for retention
Creatinine is coming down, d/w civil attorney energy conservation technician, nothing to add while stable, consult if worsening function.
#Paroxysmal atrial fibrillation with rapid ventricular rate
Status post Watchman device
03/12 evening patient went into RVR with heart rate in 190-200 range, patient asymptomatic at that time, rapid response was called
Status post ERLINDA cardioversion 03/14/2024.
#Mild Thrombocytopenia- Resolved
#Mild Hyponatremia-Better
No confusion
#Primary Hypertension
On pressure support now -
#Bronchiectasis
#Hyperlipidemia-Continue statin
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
#History of surgery for pulmonary nodule
#History of neuropathy
#Sensorineural hearing loss
# History of osteoarthritis
#Spinal Stenosis
#History of Hysterectomy
#History of Parathyroid node resection
#History of Left nephrectomy for malignancy
#Full code
#DVT prophylaxis�Lovenox
Total time spent to see the patient, examining the patient, review data and lab results, discuss treatment plan with patient, nursing staff around 55 minutes
Anticipated Discharge: > 48 hours
Subjective/Interval History
-
Date of Service: May 21, 2024
No chest pain
No sob
No fevers
Complains of nausea, reflux
Objective Data
-
Labs:
Laboratory Results
05/21/24
03:48
WBC 6.1
Hgb 10.1 L
Hct 30.1 L
Plt Count 176
Sodium 134 L
Potassium 4.3
Chloride 102
Carbon Dioxide 26
BUN 22 H
Creatinine 1.0
Glucose 85
Calcium 7.0 L
Total Bilirubin 0.5
AST 18
ALT < 10
Alkaline Phosphatase 92
Vital Signs:
Vital Signs
Temp Pulse Resp BP Pulse Ox
97.5 F 110 30 110/94 95
05/21/24 07:00 05/21/24 09:16 05/21/24 08:00 05/21/24 09:16 05/21/24 08:00
I&O
05/20/24 05/21/24 05/22/24
06:59 06:59 06:59
Intake Total 1026.7 / 1026.7 1310.7 / 1310.7
Output Total 3525 / 3525 525 / 525
Balance -2498.3 / -2498.3 785.7 / 785.7
--- NOTE | 2024-05-21 11:00 | PTCARENOTE ---
Assumed care of patient at 0645. Assessment completed and documented in shift assessment.
Patient is AAOx4, pleasant and cooperative. NELSON LAGOON. A-Fib rates 90's-110's, Amio 0.5 infusing through R DL PICC. RA, diminished lung sounds with non-productive harsh cough. Eating all meals, continent of bowel and bladder (occasional stress
incontinence due to cough). Likely to convert from IV to PO Amio today per Cardiology.
[2024-05-21] MEDS: ROBITUSSIN 200 MG PO (11:43)
[2024-05-21] MEDS: CARAFATE 1 GRAM PO ×2 (11:43→16:34)
--- NOTE | 2024-05-21 13:00 | PTCARENOTE ---
Completed all wound care and resumed compression therapy.
[2024-05-21] MEDS: PACERONE 200 MG PO ×2 (14:14→21:11)
[2024-05-21] MEDS: LANOXIN 250 MCG PO (14:14)
[2024-05-21] MEDS: STERILE WATER FOR INJECTION 10 ML IV (16:33)
[2024-05-21] MEDS: MAXIPIME 2000 MG IV (16:33)
--- NOTE | 2024-05-21 18:43 | PTCARENOTE ---
Pt received as transfer from ICU. AAOx3. Assist x 1 with RW while ambulating. Afib on tele, HRs 110s-130s. SpO2 95% on room air. B/L LEs with triny wraps on. Wound care done today by PHILATELIC CONSULTANT prior to transfer. Assessment documented. Pt resting in bed,
call zhao in reach.
--- NOTE | 2024-05-21 19:50 | PTCARENOTE ---
Assumed care of pt from prev nsg shift; Pt AAOx3 w/no c/o CP or SOB. Pt does report 'feeling some SOB w/activity'. Pt's VSS w/HR in the 90's -100's at rest & in the 110's-120's w/activity. Pt is Afib on telemetry monitoring. Pt w/bilat LE's triny
wrapped for compression as ordered, w/+pedal pulses bilat. Pt requesting bed [facility] but encouraged by this RN to get OOB to BSC to void. Pt agreeable w/1P assist w/RW. Pt assisted back to bed & call zhao within reach. Plan of care ongoing.
[2024-05-21] MEDS: MIRALAX PO (20:37)
[2024-05-21] MEDS: CARAFATE PO (23:31)
[2024-05-22] VITALS (8 sets, daily range): BP systolic 102–158; BP diastolic 49–97; PULSE 92; O2SAT 95; BMI 27.8
[2024-05-22] MEDS: HEPARIN 5000 UNITS SC ×4 (00:02→23:04)
[2024-05-22] MEDS: RESTORIL 15 MG PO ×2 (00:02→22:08)
[2024-05-22] MEDS: CARAFATE 1 GRAM PO ×5 (00:02→22:08)
[2024-05-22] MEDS: LOPRESSOR 12.5 MG PO ×5 (00:02→23:04)
[2024-05-22] MEDS: ROBITUSSIN 200 MG PO (00:02)
[2024-05-22 06:04] LABS: Blood Urea Nitrogen 20 mg/dl (7-17); Calcium 7.5 mg/dl (8.4-10.2); Carbon Dioxide 30 mmol/L (22-30); Chloride 102 mmol/L (98-107); Digoxin 1.3 ng/ml (0.8-2.0); Estimated Creatinine Clearance 36 ml/min; Glucose 82 mg/dl (70-99); Potassium 4.2 mmol/L (3.5-5.1); Sodium 134 mmol/L (135-145); eGFR 53.85
[2024-05-22] MEDS: SYNTHROID 150 MCG PO (07:10)
[2024-05-22] MEDS: LIPITOR 10 MG PO (07:58)
[2024-05-22] MEDS: VIBRAMYCIN 100 MG PO (07:58)
[2024-05-22] MEDS: PROTONIX 40 MG PO (07:58)
[2024-05-22] MEDS: PACERONE 200 MG PO (07:58)
[2024-05-22] MEDS: LOW STRENGTH ASPIRIN 81 MG PO (07:58)
[2024-05-22] MEDS: LASIX 40 MG IV ×2 (07:59→15:42)
[2024-05-22] MEDS: LIDOCAINE 4% PATCH 1 PATCH TOPICAL (07:59)
--- NOTE | 2024-05-22 09:32 | W.PN.CD ---
Today's Communication / Plan
-
- Continue AMiodarone - now maintenance dose of 200 mg QD
- Digoxin for rate control
- Will add low dose Metoprolol as the rates are still high though better controlled.
Impression / Plan
-
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
New cardiomyopathy with acute systolic HF
-Biventricular systolic dysfunction, LVEF 30-35%
-RHC/LHC 05/19/24: RA 18, PCWP 25 @ 75.3 kg, CI 2.0. No coronary disease.
-Possible rate related vs stress cardiomyopathy in the setting of septic shock
-Add on GDMT in next 24h once further from needing pressors (stopped 05/20 early AM).
-Low dose BB tomorrow if BPs tolerate
-cont IV lasix with close monitoring of labs, tele
Septic shock, in setting of cellulitis, resolved
-threat to life
-Abx per primary
-Off pressors as of 05/20 AM
AFib with RVR
-h/o paroxysmal A fib - Now in persistent AF/FL
- CHADS2-VASc at least 4 (HF, age, gender)
- Watchman + ASA
- AF / AFL with RVR noted. Wide QS with faster rates - rate related bundle branch vs aberration.
- A-fib with RVR noted. Difficult to control despite being on amnio drip and metoprolol.
- On high-dose amiodarone p.o. and IV drip along with metoprolol. Will add digoxin for better rate control.
- Flecainide no longer effective: now changed to amiodarone
- may need DCCV, but need to treat HF and infection first
- On PO Amio and Digoxin
- Will start Metoprolol today for GDMT.
- The combinationof AMio, dig and metoprolol is dangerous but needed for his patient with difficult to control rates. -Needs close tele monitoring with threat to life.
Hx VT details not available
-now on amiodarone
CKD3b
-s/p nephrectomy with solitary kidney due to RCC
-monitor with diuresis
Subjective: RHC/LHC 4/3 with RA 18, PCWP 25, CI 2.0. No coronary disease. Main complaint today is cough. She is off of vasopressors. Out of ICU to IVU now.
Rates are better controlled.
Physical Exam
Vital Signs/Labs
Vital Signs
Temp Pulse Resp BP Pulse Ox
98.4 F 91 16 131/80 96
05/22/24 07:57 05/22/24 07:55 05/22/24 07:57 05/22/24 07:55 05/22/24 07:57
05/21/24 05/22/24 05/23/24
06:59 06:59 06:59
Actual Weight 73.4 kg 71.2 kg
05/21/24 03:48
05/22/24 05:08
PT 17.3 Sec (11.4-14.6) H 05/15/24 05:11
INR 1.39 05/15/24 05:11
APTT 33.7 Sec (23.4-35.0) 05/15/24 05:11
Magnesium 1.6 mg/dl (1.6-2.3) 05/21/24 03:48
TSH 0.51 uIU/ml (0.47-4.68) 05/16/24 03:54
Digoxin 1.3 ng/ml (0.8-2.0) 05/22/24 05:08
05/14/24 05/17/24 05/17/24
19:40 03:51 10:37
Zhe-Q-Fqootxxnmqc Pept [id number] Cancelled
05/18/24
04:20
Fry-R-Bmgnizbzlgu Pept [id number]
Physical Exam
Constitutional: No acute distress and Comfortable
EENT: Anicteric and Moist mucous membranes
Cardiovascular: JVD pressure is normal, Rhythm/rate is irregular and Systolic murmur present
Respiratory: Respiratory effort normal, Wheeze Absent and Crackles Absent
GI: Soft, Non tender and Normal bowel sounds
Neuro/Psych: Alert, Oriented and AO x 3
Data Reviewed
-
Date of Service: May 22, 2024
Medical Decision Making: Reviewed Test Results
EKG: Tracing Personally Visualized and interpreted
Echo: Report Reviewed by me
Medical Tests (PFT, Pathology etc): Image Personally Visualized and interpreted
Labs: Labs Ordered by me
Old Records: Reviewed
--- NOTE | 2024-05-22 10:44 | W.PN.ID1 ---
Date of Service
Date of Service: May 22, 2024
Today's Communication
Continue antibiotics.
Assessment / Plan
# Right foot cellulitis with ruptured blister from edema
# PNA
# Fever - resolved
# Leukocytosis - resolved
- Pleural fluid - transudative, cx neg to date
- Foot cellulitis continues to improve. Continue with wound care and compression.
- Continue doxycycline po x 7d through 4/7 am.
- Continue cefdinir 300mg po bid through 05/24.
# Acute CHF, EF 30-35%
# Afib
# s/p Shock
# Conditions [employer]
Hypertension
HLD
Paroxysmal atrial fibrillation status post cardioversion
Status post Watchman procedure
Bronchiectasis
Hypothyroidism
Hx Myasthenia gravis
CKD3
Bilateral proximal tibia fractures
Chief Complaint
-: Cellulitis
Subjective / Review of Systems
Review of Systems: No Fever and No Chills
Vital Signs / Physical Exam
Vital Signs
Vital Signs
Temp Pulse Resp BP Pulse Ox
98.4 F 91 16 131/80 96
05/22/24 07:57 05/22/24 07:55 05/22/24 07:57 05/22/24 07:55 05/22/24 07:57
Physical Exam
Constitutional: No Acute Distress and Comfortable
Pulmonary: Clear (anteriorly) and Non Labored
Gastrointestinal: Soft, Non Tender and Non Distended
Extremities: Edema (BLE 2+) and Erythema (Dorsal right foot erythema overall improving, more localized to mid foot with dark hemorraghic wound.)
Wound: Other (Right foot ruptured blister wound with granulating tissue. )
Neurological: Awake and Alert
Psychological: Calm
Objective Data
Lab Data
Lab Results
05/21/24 03:48
05/22/24 05:08
PT 17.3 Sec (11.4-14.6) H 05/15/24 05:11
INR 1.39 05/15/24 05:11
APTT 33.7 Sec (23.4-35.0) 05/15/24 05:11
Estimated Creat Clear 36 ml/min 05/22/24 05:08
Total Bilirubin 0.5 mg/dl (0.2-1.3) 05/21/24 03:48
AST 18 U/L (14-36) 05/21/24 03:48
ALT < 10 U/L (0-35) 05/21/24 03:48
Alkaline Phosphatase 92 U/L (38-126) 05/21/24 03:48
Most recent labs reviewed.
Micro Results:
05/17/24 16:42 Body Fluid Culture - Final
Pleural Fluid No Growth After 72 Hours
Gram Stain - Final
05/15/24 08:26 Blood Culture - Final
Blood/Venous No Growth - Final Report
05/15/24 15:00 MRSA Screen - Final
Nose No Methicillin Resistant Staphylococcus aureus isolated.
Imaging:
05/16/24 CXR: Slightly increased right midlung opacity which could represent pneumonia. Right greater than left basilar opacity again identified which could represent subsegmental atelectasis and/or pneumonia and bilateral pleural effusions.
05/14/24 CXR: Moderate right pleural effusion and small left pleural effusion, new since radiograph of March 16, 2024. Patchy parenchymal opacity within both lower lungs, with main differential considerations of atelectasis and/or pneumonia
--- NOTE | 2024-05-22 11:25 | W.PN.HOSP.TC ---
Today's Communication/Plan
-
c/w rate control
ON IV Lasix
f/w cardiology recommendations
Assessment / Plan
Assessment / Plan
Physical Exam
General:No Apparent Distress
HEENT: NormoCephalic, Moist mucous membranes and Atraumatic
Respiratory: much less Basal rales
Cardiac: S1/S2, Irregular Rhythm, Tachycardia.
GI: Soft, Non Tender, Non Distended and Normal Bowel Sounds;
Rectal: No bleed
Musculoskeletal: much less + edema, skin excoriation right dorsal foot, intact blister left dorsal foot
Psych, calm, pleasant
Neuro: Awake alert oriented x 3, follows commands, no tremor
Assessment and plan
# Acute on chronic heart failure with preserved ejection fraction
Persistent hypotension, combination of sepsis and cardiogenic shock
Doubt septic shock but ok to treat as such. Now bP seems to stabilize, off Phenylephrine gtt
Continue with rate control, IV amiodarone gtt
Echo showed LVEF 30-35%, Enlarged RV with reduced function, Moderate TR. Normal PASP. Compared to 03/14/24: LV and RV dysfunction are new. Moderate TR is new.
V-Q scan of lungs low probability. US of legs no DVT
S/P Cath L & R side, No blocked CAD, elevated filling pressures.
Appreciate cardiology and ICU doctors help
# Bilateral pleural effusions, right sided greater than left.
s/p thoracentesis of right lung completed on 05/17. 1.1 L of straw-colored fluid drained. Analysis showed transudative fluid with elevated white blood cell count
Post thoracentesis re-expansion acute pulmonary edema, improved with Lasix and O2
� Peripheral vascular ultrasound negative for DVT. Lung VQ scan shows low probability for pulmonary embolus
# History of paroxysmal A-fib, uncontrolled
Status post Watchman device
Status post cardioversion in February 2024
s/p amiodarone drip. Now off flecainide. Started on oral amiodarone & BB, Digoxin.
Started on metoprolol orally
#GERD-Continue Protonix
She is having nausea despite Carafate and PPI, I think from ABx
Hold Doxy
# Right foot cellulitis
Improving well. Right dorsal foot ( healing skin excoriation). Left dorsal foot, intact blister
Less edema in legs noted with diuretics
Continue with IV cefepime & doxycycline then oral Cefdinir.
Negative blood culture
Consulted ID, help appreciated
# hypokalemia
replaced
Added oral KCl BID.
# Hypomagnesemia, replaced
# ARABELLA creatinine on admission 1.7. Last creatinine 1.3 on May 05
CKD 3B
Status post left nephrectomy
Monitored renal function.
Monitored for retention
Creatinine is coming down, d/w religious assistant motion study analyst, nothing to add while stable, consult if worsening function.
#Paroxysmal atrial fibrillation with rapid ventricular rate
Status post Watchman device
03/12 evening patient went into RVR with heart rate in 190-200 range, patient asymptomatic at that time, rapid response was called
Status post ERLINDA cardioversion 03/14/2024.
#Mild Thrombocytopenia- Resolved
#Mild Hyponatremia-Better
No confusion
#Primary Hypertension
On pressure support now -
#Bronchiectasis
#Hyperlipidemia-Continue statin
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
#History of surgery for pulmonary nodule
#History of neuropathy
#Sensorineural hearing loss
# History of osteoarthritis
#Spinal Stenosis
#History of Hysterectomy
#History of Parathyroid node resection
#History of Left nephrectomy for malignancy
#Full code
#DVT prophylaxis�Lovenox
Total time spent to see the patient, examining the patient, review data and lab results, discuss treatment plan with patient, son, nursing staff around 55 minutes
Anticipated Discharge: > 48 hours
Subjective/Interval History
-
Date of Service: May 22, 2024
Still nausea
No chest pain
No sob
Upset because cards told her she could go home
Objective Data
-
Labs:
Laboratory Results
05/22/24
05:08
Sodium 134 L
Potassium 4.2
Chloride 102
Carbon Dioxide 30
BUN 20 H
Creatinine 1.0
Glucose 82
Calcium 7.5 L
Vital Signs:
Vital Signs
Temp Pulse Resp BP Pulse Ox
98.4 F 91 16 131/80 96
05/22/24 07:57 05/22/24 07:55 05/22/24 07:57 05/22/24 07:55 05/22/24 07:57
I&O
05/21/24 05/22/24 05/23/24
06:59 06:59 06:59
Intake Total 1310.7 / 1310.7 1506.8 / 1506.8
Output Total 525 / 525 800 / 800 450 / 450
Balance 785.7 / 785.7 706.8 / 706.8 -450 / -450
[2024-05-22] MEDS: LANOXIN 250 MCG PO (11:30)
[2024-05-22] MEDS: TOPROL XL 12.5 MG PO (11:30)
[2024-05-22] MEDS: STERILE WATER FOR INJECTION 10 ML IV (15:41)
[2024-05-22] MEDS: MAXIPIME 2000 MG IV (15:41)
[2024-05-22] MEDS: MIRALAX PO (22:08)
--- NOTE | 2024-05-22 23:24 | PTCARENOTE ---
Received patient at change of shift. Afib on the monitor, HR in the 100s. Gibran wraps removed at bedtime. Pt reported multiple bowel movements today and refused Miralax. No complaints from pt at this time, call zhao within reach.
[2024-05-23] VITALS (7 sets, daily range): BP systolic 106–132; BP diastolic 56–76; BMI 27.0
[2024-05-23 02:58] LABS: Hematocrit 32.8 % (37.0-47.0); Hemoglobin 11.1 g/dL (12.0-16.0); Mean Corp Hgb Conc. 33.8 g/dL (33.0-37.0); Mean Corpuscular Hgb 28.4 pg (27.0-31.0); Mean Corpuscular Volume 83.9 fL (81.0-99.0); Mean Platelet Volume 9.4 fL (7.4-10.4); Platelet Count 220 10^3/uL (130-400); Red Blood Cell Count 3.91 10^6/uL (4.20-5.40); White Blood Cell Count 7.4 10^3/uL (4.8-10.8)
[2024-05-23 03:06] LABS: Blood Urea Nitrogen 20 mg/dl (7-17); Calcium 7.6 mg/dl (8.4-10.2); Carbon Dioxide 28 mmol/L (22-30); Chloride 101 mmol/L (98-107); Estimated Creatinine Clearance 36 ml/min; Glucose 86 mg/dl (70-99); Magnesium 1.4 mg/dl (1.6-2.3); Potassium 4.1 mmol/L (3.5-5.1); Sodium 132 mmol/L (135-145); eGFR 53.85
[2024-05-23] MEDS: SYNTHROID 150 MCG PO (05:47)
[2024-05-23] MEDS: LOPRESSOR 12.5 MG PO (05:47)
--- NOTE | 2024-05-23 07:20 | W.PN.CD ---
Today's Communication / Plan
-
- D/c q6h Metoprolol
- Increase Toprol XL
- Continue Digoxin and Amiodarone.
- On ASA and not AC with Watchman in place. If DCCV is needed, will need at least a month of anticoagulation.
Impression / Plan
-
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
New cardiomyopathy with acute systolic HF
-Biventricular systolic dysfunction, LVEF 30-35%
-RHC/LHC 05/19/24: RA 18, PCWP 25 @ 75.3 kg, CI 2.0. No coronary disease.
-Possible rate related vs stress cardiomyopathy in the setting of septic shock
-Add on GDMT in next 24h once further from needing pressors (stopped 05/20 early AM).
-Low dose BB tomorrow if BPs tolerate
-cont IV lasix with close monitoring of labs, tele
Septic shock, in setting of cellulitis, resolved
-threat to life
-Abx per primary
-Off pressors as of 05/20 AM
AFib with RVR
-h/o paroxysmal A fib - Now in persistent AF/FL
- CHADS2-VASc at least 4 (HF, age, gender)
- Watchman + ASA
- AF / AFL with RVR noted. Wide QS with faster rates - rate related bundle branch vs aberration.
- A-fib with RVR noted. Difficult to control despite being on amnio, Dig and metoprolol.
- On high-dose amiodarone p.o. with metoprolol and digoxin for better rate control.
- Flecainide no longer effective: now changed to amiodarone
- may need DCCV, but need to treat HF and infection first
- On PO Amio and Digoxin
- On Metoprolol today for GDMT.
- The combination of AMio, dig and metoprolol is dangerous but needed for his patient with difficult to control rates. -Needs close tele monitoring with threat to life.
- AF with RVR - ventricular response rates has finally improved. High risk of conversion pause, and bradycardia.
Hx VT details not available
-now on amiodarone
CKD3b
-s/p nephrectomy with solitary kidney due to RCC
-monitor with diuresis
Subjective: RHC/LHC 4/3 with RA 18, PCWP 25, CI 2.0. No coronary disease. Main complaint today is cough. She is off of vasopressors. Out of ICU to IVU now.
Rates are better controlled.
Physical Exam
Vital Signs/Labs
Vital Signs
Temp Pulse Resp BP Pulse Ox
99.3 F 101 18 119/73 96
05/23/24 02:28 05/23/24 05:47 05/23/24 02:28 05/23/24 05:47 05/23/24 02:28
05/22/24 05/23/24 05/24/24
06:59 06:59 06:59
Actual Weight 71.2 kg 69.2 kg
05/23/24 02:23
05/23/24 02:23
PT 17.3 Sec (11.4-14.6) H 05/15/24 05:11
INR 1.39 05/15/24 05:11
APTT 33.7 Sec (23.4-35.0) 05/15/24 05:11
Magnesium 1.4 mg/dl (1.6-2.3) L 05/23/24 02:23
TSH 0.51 uIU/ml (0.47-4.68) 05/16/24 03:54
Digoxin 1.3 ng/ml (0.8-2.0) 05/22/24 05:08
05/14/24 05/17/24 05/17/24
19:40 03:51 10:37
Sqq-C-Ztqpwuiqhpm Pept [id number] Cancelled
05/18/24
04:20
Kec-H-Pyggiflfhyp Pept [id number]
Physical Exam
Constitutional: No acute distress and Comfortable
EENT: Anicteric and Moist mucous membranes
Cardiovascular: Rhythm/rate is irregular and Systolic murmur present
Respiratory: Respiratory effort normal, Lungs clear to auscul. and Wheeze Absent
GI: Soft, Distention absent, Non tender and Normal bowel sounds
Neuro/Psych: Alert, Oriented and AO x 3
Data Reviewed
-
Date of Service: May 23, 2024
Medical Decision Making: Reviewed Test Results, Test Interpretation and Review of Case with other Provider
EKG: Tracing Personally Visualized and interpreted
Echo: Report Reviewed by me
Labs: Labs Reviewed by me
Old Records: Reviewed
[2024-05-23] MEDS: PACERONE 200 MG PO (08:16)
[2024-05-23] MEDS: LASIX 40 MG IV ×2 (08:16→17:30)
[2024-05-23] MEDS: OMNICEF 300 MG PO ×2 (08:16→19:43)
[2024-05-23] MEDS: PROTONIX 40 MG PO (08:16)
[2024-05-23] MEDS: HEPARIN 5000 UNITS SC ×3 (08:16→22:58)
[2024-05-23] MEDS: LIDOCAINE 4% PATCH 1 PATCH TOPICAL (08:17)
[2024-05-23] MEDS: LIPITOR 10 MG PO (08:17)
[2024-05-23] MEDS: LOW STRENGTH ASPIRIN 81 MG PO (08:17)
[2024-05-23] MEDS: TOPROL XL 50 MG PO ×2 (08:17→19:43)
[2024-05-23] MEDS: CARAFATE 1 GRAM PO ×4 (08:17→22:55)
--- NOTE | 2024-05-23 10:33 | W.PN.ID1 ---
Date of Service
Date of Service: May 23, 2024
Today's Communication
- Continue doxycycline po x 7d through 47 am.
- Continue cefdinir 300mg po bid through 05/24.
Assessment / Plan
# Right foot cellulitis with ruptured blister from edema
# PNA
# Fever - resolved
# Leukocytosis - resolved
# Acute BL LE edema - improving
- Pleural fluid - transudative, cx neg to date
- Foot cellulitis resolved. Edema management ongoing- lasix per primary/cardiology
- Continue doxycycline po x 7d through 05/23 am.
- Continue cefdinir 300mg po bid through 05/24.
# Acute CHF, EF 30-35%
# Afib
# s/p Shock
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
Hypertension
HLD
Paroxysmal atrial fibrillation status post cardioversion
Status post Watchman procedure
Bronchiectasis
Hypothyroidism
Hx Myasthenia gravis
CKD3
Bilateral proximal tibia fractures
Chief Complaint
-: Cellulitis
Subjective / Review of Systems
afebrile
bp stable
no events overnight
Vital Signs / Physical Exam
Vital Signs
Vital Signs
Temp Pulse Resp BP Pulse Ox
98.6 F 101 20 119/73 94
05/23/24 07:52 05/23/24 05:47 05/23/24 07:52 05/23/24 05:47 05/23/24 07:52
Physical Exam
Constitutional: No Acute Distress
Cardiovascular: Regular Rate and S1/S2; Negative Murmur or Rub
Pulmonary: Clear and Symmetric; Negative Wheezes or Rales
Gastrointestinal: Soft, Non Tender, Non Distended and Normal Bowel Sounds
Skin: Warm and Dry; Negative Rash or Jaundice
Wound: Other (wounds on the dorsal feet without surrounding erythea, no purulent drainage; there is 1+ edema through the RLE)
Objective Data
Lab Data
Lab Results
05/23/24 02:23
05/23/24 02:23
PT 17.3 Sec (11.4-14.6) H 05/15/24 05:11
INR 1.39 05/15/24 05:11
APTT 33.7 Sec (23.4-35.0) 05/15/24 05:11
Estimated Creat Clear 36 ml/min 05/23/24 02:23
Total Bilirubin 0.5 mg/dl (0.2-1.3) 05/21/24 03:48
AST 18 U/L (14-36) 05/21/24 03:48
ALT < 10 U/L (0-35) 05/21/24 03:48
Alkaline Phosphatase 92 U/L (38-126) 05/21/24 03:48
Most recent labs reviewed.
Micro Results:
05/17/24 16:42 Body Fluid Culture - Final
Pleural Fluid No Growth After 72 Hours
Gram Stain - Final
05/15/24 08:26 Blood Culture - Final
Blood/Venous No Growth - Final Report
05/15/24 15:00 MRSA Screen - Final
Nose No Methicillin Resistant Staphylococcus aureus isolated.
Imaging:
05/16/24 CXR: Slightly increased right midlung opacity which could represent pneumonia. Right greater than left basilar opacity again identified which could represent subsegmental atelectasis and/or pneumonia and bilateral pleural effusions.
05/14/24 CXR: Moderate right pleural effusion and small left pleural effusion, new since radiograph of March 16, 2024. Patchy parenchymal opacity within both lower lungs, with main differential considerations of atelectasis and/or pneumonia
[2024-05-23] MEDS: MAGNESIUM SULFATE 100 IV (10:34)
[2024-05-23] MEDS: LANOXIN 250 MCG PO (11:56)
--- NOTE | 2024-05-23 12:38 | PTCARENOTE ---
Assumed care at 0700. Patient AO x3, SAMISH. A-Fib 80-90's, edema improved +1 bilaterally pitting, compression triny wraps replaced. Walking to the bathroom with rolling walker, voiding yellow urine. Stage 2 sacral wound healing, scabbed, cleansed with
saline covered with adhesive foam. Magnesium 1.4, mag rider infusing. Using call zhao for assistance and in reach
--- NOTE | 2024-05-23 12:53 | CM ---
Chart reviewed. Pt reports she has been at [facility] since 03/19/24 and was scheduled to be discharged home on Thursday05/18/24 with [facility] services, 08/09 caregiver services. Pt reports she lives alone, has 3 supportive children, son Vasquez arranging
caregivers services and they will be available upon the discharge. Pt stated that hospital bed already delivered to her home daughter Lewis was at home and accepted delivery. Pt reports she has a walker, transport chair, hospital bed, tray.
After speaking with the patient and patient's daughter Lewis, along with PT evaluation. patient would like to go back to [facility] for SNF to get stronger before returning home. Referral sent to [facility] and I will follow up with them to see bed
availability. CM to follow
--- NOTE | 2024-05-23 16:09 | W.PN.HOSP.TC ---
Today's Communication/Plan
-
adjusting afib meds
abx
Assessment / Plan
Assessment / Plan
Physical Exam
General:No Apparent Distress
HEENT: NormoCephalic, Moist mucous membranes and Atraumatic
Respiratory: much less Basal rales
Cardiac: S1/S2, Irregular Rhythm, Tachycardia.
GI: Soft, Non Tender, Non Distended and Normal Bowel Sounds;
Rectal: No bleed
Musculoskeletal: much less + edema, skin excoriation right dorsal foot, intact blister left dorsal foot
Psych, calm, pleasant
Neuro: Awake alert oriented x 3, follows commands, no tremor
Assessment and plan
# Acute on chronic heart failure with preserved ejection fraction
Doubt septic shock but ok to treat as such. Now bP seems to stabilize, off Phenylephrine gtt
Echo showed LVEF 30-35%, Enlarged RV with reduced function, Moderate TR. Normal PASP. Compared to 03/14/24: LV and RV dysfunction are new. Moderate TR is new.
V-Q scan of lungs low probability. US of legs no DVT
S/P Cath L & R side, No blocked CAD, elevated filling pressures.
Possible regulator versus stress cardiomyopathy
Initiated Toprol-XL, discontinue every 6 hours metoprolol
# Bilateral pleural effusions, right sided greater than left.
s/p thoracentesis of right lung completed on 05/17. 1.1 L of straw-colored fluid drained. Analysis showed transudative fluid with elevated white blood cell count, cultures ngtd
Post thoracentesis re-expansion acute pulmonary edema, improved with Lasix and O2
# History of paroxysmal A-fib, uncontrolled
Status post Watchman device
Status post cardioversion in February 2024
s/p amiodarone drip. Now off flecainide. Started on oral amiodarone & BB, Digoxin.
Started on metoprolol orally
On ASA and not AC with Watchman in place. If DCCV is needed, will need at least a month of anticoagulation.
#GERD-Continue Protonix
-She is having nausea despite Carafate and PPI
-possibly from ABx - improved
# Right foot cellulitis
Improving well. Right dorsal foot ( healing skin excoriation). Left dorsal foot, intact blister
Less edema in legs noted with diuretics
Continue with IV cefepime & doxycycline then oral Cefdinir.
-Continue doxycycline po x 7d through 4/7 am.
- Continue cefdinir 300mg po bid through 05/24.
# hypokalemia
replaced
Added oral KCl BID.
# Hypomagnesemia
-monitor and replace
# ARABELLA creatinine on admission 1.7. Last creatinine 1.3 on May 05
CKD 3B
Status post left nephrectomy
resolved
#Paroxysmal atrial fibrillation with rapid ventricular rate
Status post Watchman device
03/12 evening patient went into RVR with heart rate in 190-200 range, patient asymptomatic at that time, rapid response was called
Status post ERLINDA cardioversion 03/14/2024.
#Mild Thrombocytopenia- Resolved
#Mild Hyponatremia-
-monitor
No confusion
#Primary Hypertension
On pressure support now -
#Bronchiectasis
#Hyperlipidemia-Continue statin
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
#History of surgery for pulmonary nodule
#History of neuropathy
#Sensorineural hearing loss
# History of osteoarthritis
#Spinal Stenosis
#History of Hysterectomy
#History of Parathyroid node resection
#History of Left nephrectomy for malignancy
#Full code
#DVT prophylaxis�Lovenox
Anticipated Discharge: Within 24 hours
Subjective/Interval History
-
Date of Service: May 23, 2024
No acute events overnight
Objective Data
-
Vital Signs:
Vital Signs
Temp Pulse Resp BP Pulse Ox
98.3 F 71 18 121/71 96
05/23/24 15:25 05/23/24 14:00 05/23/24 15:25 05/23/24 11:12 05/23/24 15:25
I&O
05/22/24 05/23/24 05/24/24
06:59 06:59 06:59
Intake Total 1506.8 / 1506.8 680 / 680 580 / 580
Output Total 800 / 800 1700 / 1700 500 / 500
Balance 706.8 / 706.8 -1020 / -1020 80 / 80
Review of Systems
-
History Source: Patient
All other systems: Not reviewed unless documented
Data Reviewed
-
Diagnostic Radiology: Image personally visualized and interpreted and Report Reviewed by me
Labs: Labs Reviewed by me
[2024-05-23] MEDS: STERILE WATER FOR INJECTION IV (17:01)
[2024-05-23] MEDS: MIRALAX PO (22:04)
[2024-05-23] MEDS: RESTORIL 15 MG PO (22:55)
--- NOTE | 2024-05-23 23:16 | PTCARENOTE ---
Received patient at change of shift. Afib on the monitor, HR in the 80s. Gibran wraps removed HS. Bilateral foot dressings CDI. No complaints from pt at this time, call zhao within reach.
[2024-05-24] VITALS (10 sets, daily range): BP systolic 107–131; BP diastolic 46–76; PULSE 87–89; O2SAT 90–91; BMI 26.6
[2024-05-24 04:17] LABS: Hematocrit 36.3 % (37.0-47.0); Hemoglobin 12.1 g/dL (12.0-16.0); Mean Corp Hgb Conc. 33.3 g/dL (33.0-37.0); Mean Corpuscular Hgb 27.9 pg (27.0-31.0); Mean Corpuscular Volume 83.8 fL (81.0-99.0); Platelet Count 261 10^3/uL (130-400); Red Blood Cell Count 4.33 10^6/uL (4.20-5.40); Red Cell Dist. Width 16.8 % (11.5-14.5); White Blood Cell Count 8.7 10^3/uL (4.8-10.8)
[2024-05-24 04:38] LABS: ALT (SGPT) < 10 U/L (0-35); AST (SGOT) 26 U/L (14-36); Albumin 2.6 g/dl (3.5-5.0); Alkaline Phosphatase 93 U/L (38-126); Blood Urea Nitrogen 21 mg/dl (7-17); Calcium 8.1 mg/dl (8.4-10.2); Carbon Dioxide 27 mmol/L (22-30); Chloride 99 mmol/L (98-107); Estimated Creatinine Clearance 35 ml/min; Glucose 95 mg/dl (70-99); Magnesium 2.2 mg/dl (1.6-2.3); Potassium 4.6 mmol/L (3.5-5.1); Sodium 132 mmol/L (135-145); Total Bilirubin 0.7 mg/dl (0.2-1.3); Total Protein 5.1 g/dl (6.3-8.2); eGFR > 60.00
[2024-05-24] MEDS: SYNTHROID 150 MCG PO (06:25)
[2024-05-24] MEDS: LOW STRENGTH ASPIRIN 81 MG PO (08:10)
[2024-05-24] MEDS: OMNICEF 300 MG PO (08:11)
[2024-05-24] MEDS: LIDOCAINE 4% PATCH 1 PATCH TOPICAL (08:11)
[2024-05-24] MEDS: LIPITOR 10 MG PO (08:11)
[2024-05-24] MEDS: PROTONIX 40 MG PO (08:11)
[2024-05-24] MEDS: TOPROL XL 50 MG PO (08:11)
[2024-05-24] MEDS: CARAFATE 1 GRAM PO ×2 (08:12→15:03)
[2024-05-24] MEDS: LASIX 40 MG IV (08:12)
[2024-05-24] MEDS: HEPARIN 5000 UNITS SC ×3 (08:12→23:16)
[2024-05-24] MEDS: PACERONE 200 MG PO (08:12)
--- NOTE | 2024-05-24 09:06 | W.PN.ID1 ---
Date of Service
Date of Service: May 24, 2024
Today's Communication
- completed doxycycline
- Continue cefdinir 300mg po bid through 05/24.
- follow up with cardiology and PCP
Assessment / Plan
# Right foot cellulitis with ruptured blister from edema
# PNA
# Fever - resolved
# Leukocytosis - resolved
# Acute BL LE edema - improving
- Pleural fluid - transudative, cx neg to date
- Foot cellulitis resolved. Edema management ongoing- lasix per primary/cardiology
- completed doxycycline
- Continue cefdinir 300mg po bid through 05/24.
- follow up with cardiology and PCP
# Acute CHF, EF 30-35%
# Afib
# s/p Shock
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
Hypertension
HLD
Paroxysmal atrial fibrillation status post cardioversion
Status post Watchman procedure
Bronchiectasis
Hypothyroidism
Hx Myasthenia gravis
CKD3
Bilateral proximal tibia fractures
Chief Complaint
-: Cellulitis
Subjective / Review of Systems
afebrile
bp stable
afib on the monitor
no events overnight
Vital Signs / Physical Exam
Vital Signs
Vital Signs
Temp Pulse Resp BP Pulse Ox
98.3 F 80 16 124/59 93
05/24/24 06:51 05/24/24 07:00 05/24/24 06:51 05/24/24 06:50 05/24/24 06:51
Physical Exam
Constitutional: No Acute Distress
Cardiovascular: Regular Rate
Pulmonary: Symmetric
Gastrointestinal: Non Distended
Extremities: Edema
Skin: Dry; Negative Rash or Jaundice
Objective Data
Lab Data
Lab Results
05/24/24 04:02
05/24/24 04:02
PT 17.3 Sec (11.4-14.6) H 05/15/24 05:11
INR 1.39 05/15/24 05:11
APTT 33.7 Sec (23.4-35.0) 05/15/24 05:11
Estimated Creat Clear 35 ml/min 05/24/24 04:02
Total Bilirubin 0.7 mg/dl (0.2-1.3) 05/24/24 04:02
AST 26 U/L (14-36) 05/24/24 04:02
ALT < 10 U/L (0-35) 05/24/24 04:02
Alkaline Phosphatase 93 U/L (38-126) 05/24/24 04:02
Most recent labs reviewed.
Micro Results:
05/17/24 16:42 Body Fluid Culture - Final
Pleural Fluid No Growth After 72 Hours
Gram Stain - Final
05/15/24 08:26 Blood Culture - Final
Blood/Venous No Growth - Final Report
05/15/24 15:00 MRSA Screen - Final
Nose No Methicillin Resistant Staphylococcus aureus isolated.
Imaging:
05/16/24 CXR: Slightly increased right midlung opacity which could represent pneumonia. Right greater than left basilar opacity again identified which could represent subsegmental atelectasis and/or pneumonia and bilateral pleural effusions.
05/14/24 CXR: Moderate right pleural effusion and small left pleural effusion, new since radiograph of March 16, 2024. Patchy parenchymal opacity within both lower lungs, with main differential considerations of atelectasis and/or pneumonia
--- NOTE | 2024-05-24 09:15 | SUR.OPER ---
Patient out of bed in the chair this morning. A-fib 70-100's. Dry cough this morning and persistent nausea. Appetite fair. Able to eat and drink, no emesis. Frequent urination, IV Lasix given, urine yellow, last BM yesterday. Right shoulder
discomfort, Lidoderm patch applied. +1 edema, triny wraps re-applied. B/L dorsal feet dressing replaced, healing blisters. Call zhao in reach
--- NOTE | 2024-05-24 10:50 | CM ---
Chart reviewed. Pt reports she has been at [facility] since 03/19/24 and was scheduled to be discharged home on Thursday05/18/24 with [facility] services, 08/09 caregiver services. Pt reports she lives alone, has 3 supportive children, son Vasquez arranging
caregivers services and they will be available upon the discharge. Pt stated that hospital bed already delivered to her home daughter Lewis was at home and accepted delivery. Pt reports she has a walker, transport chair, hospital bed, tray.
After speaking with the patient and patient's daughter Lewis, along with PT evaluation. patient would like to go back to [facility] for SNF to get stronger before returning home. [facility] does not have any bed availability. Referrals sent to [facility], [facility], and [facility]. Plan is for the patient to go to SNF when medically stable. Patient will need PT/OT evaluation for insurance authorization. CM to follow
--- NOTE | 2024-05-24 11:08 | W.PN.CD ---
Today's Communication / Plan
-
- Stable for discharge from cardiac stand point.
Impression / Plan
-
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
New cardiomyopathy with acute systolic HF
-Biventricular systolic dysfunction, LVEF 30-35%
-RHC/LHC 05/19/: RA 18, PCWP 25 @ 75.3 kg, CI 2.0. No coronary disease.
-Possible rate related vs stress cardiomyopathy in the setting of septic shock
-Add on GDMT - pressors stopped 05/20 early AM.
- On Metoprolol 50 mg BID.
-on IV lasix - can be PO now with home dose.
-Hypo Mag - treated
Septic shock, in setting of cellulitis, resolved
-threat to life - recovered.
-Abx per primary
-Off pressors as of 05/20 AM
AFib with RVR
-h/o paroxysmal A fib - Now in persistent AF/FL
- CHADS2-VASc at least 4 (HF, age, gender)
- Watchman + ASA
- AF / AFL with RVR noted. Wide QS with faster rates - rate related bundle branch vs aberration.
- A-fib with RVR noted. Difficult to control despite being on amnio, Dig and metoprolol.
- On amiodarone p.o. with metoprolol and digoxin for better rate control.
- Flecainide no longer effective: now changed to amiodarone
- Monitored for bradycardia for 3 days with addition of Amiodarone, Metoprolol and Digoxin - No sign of hemodynamic abormality
- AF/FL rates are much better controlled now.
Hx VT details not available
-now on amiodarone
CKD3b
-s/p nephrectomy with solitary kidney due to RCC
-monitor with diuresis
Subjective: RHC/LHC 05/19 with RA 18, PCWP 25, CI 2.0. No coronary disease.
Rates are better controlled.
Physical Exam
Vital Signs/Labs
Vital Signs
Temp Pulse Resp BP Pulse Ox
98.3 F 80 16 124/59 93
05/24/24 06:51 05/24/24 07:00 05/24/24 06:51 05/24/24 06:50 05/24/24 06:51
05/23/24 05/24/24 05/25/24
06:59 06:59 06:59
Actual Weight 69.2 kg 68 kg
05/24/24 04:02
05/24/24 04:02
PT 17.3 Sec (11.4-14.6) H 05/15/24 05:11
INR 1.39 05/15/24 05:11
APTT 33.7 Sec (23.4-35.0) 05/15/24 05:11
Magnesium 2.2 mg/dl (1.6-2.3) 05/24/24 04:02
TSH 0.51 uIU/ml (0.47-4.68) 05/16/24 03:54
Digoxin 1.3 ng/ml (0.8-2.0) 05/22/24 05:08
05/14/24 05/17/24 05/17/24
19:40 03:51 10:37
Gqs-T-Bnwsgvmcpha Pept [id number] Cancelled
05/18/24
04:20
Uux-L-Amhjhmcjtjw Pept [id number]
Physical Exam
Constitutional: No acute distress and Comfortable
EENT: Anicteric and Moist mucous membranes
Cardiovascular: Pedal edema is absent, Rhythm/rate is irregular, JVD present and Systolic murmur present
Respiratory: Respiratory effort normal, Lungs clear to auscul. and Crackles Absent
GI: Soft, Non tender and Normal bowel sounds
Neuro/Psych: Alert, Oriented and AO x 3
Data Reviewed
-
Date of Service: May 24, 2024
Medical Decision Making: Reviewed Test Results, Test Interpretation and Review of Case with other Provider
EKG: Tracing Personally Visualized and interpreted
Labs: Labs Reviewed by me
Old Records: Reviewed
[2024-05-24] MEDS: TIGAN 200 MG IM (11:35)
--- NOTE | 2024-05-24 11:43 | PTCARENOTE ---
Tigan IM given
[2024-05-24] MEDS: CARAFATE PO ×2 (12:57→22:11)
[2024-05-24] MEDS: LANOXIN 250 MCG PO (12:57)
--- NOTE | 2024-05-24 14:19 | W.PN.HOSP.TC ---
Today's Communication/Plan
-
Switch to p.o. Lasix, metoprolol continued
Antibiotic completion today
Antibiotics
DC ready, shelter case manager aware
Assessment / Plan
Assessment / Plan
Physical Exam
General:No Apparent Distress
HEENT: NormoCephalic, Moist mucous membranes and Atraumatic
Respiratory: much less Basal rales
Cardiac: S1/S2, Irregular Rhythm, Tachycardia.
GI: Soft, Non Tender, Non Distended and Normal Bowel Sounds;
Rectal: No bleed
Musculoskeletal: much less + edema, skin excoriation right dorsal foot, intact blister left dorsal foot
Psych, calm, pleasant
Neuro: Awake alert oriented x 3, follows commands, no tremor
Assessment and plan
# Acute on chronic heart failure with preserved ejection fraction
Doubt septic shock but ok to treat as such. Now bP seems to stabilize, off Phenylephrine gtt
Echo showed LVEF 30-35%, Enlarged RV with reduced function, Moderate TR. Normal PASP. Compared to 03/14/24: LV and RV dysfunction are new. Moderate TR is new.
V-Q scan of lungs low probability. US of legs no DVT
S/P Cath L & R side, No blocked CAD, elevated filling pressures.
Possible regulator versus stress cardiomyopathy
IV Lasix, transition over to p.o. Lasix
Metoprolol 50 mg twice daily
# Bilateral pleural effusions, right sided greater than left.
s/p thoracentesis of right lung completed on 05/17. 1.1 L of straw-colored fluid drained. Analysis showed transudative fluid with elevated white blood cell count, cultures ngtd
Post thoracentesis re-expansion acute pulmonary edema, improved with Lasix and O2
Now back on p.o. Lasix
# History of paroxysmal A-fib, uncontrolled
Status post Watchman device
Status post cardioversion in February 2024
s/p amiodarone drip. Now off flecainide. Started on oral amiodarone & BB, Digoxin.
Started on metoprolol orally
On ASA and not AC with Watchman in place. If DCCV is needed, will need at least a month of anticoagulation.
#GERD-Continue Protonix
-She is having nausea despite Carafate and PPI
-possibly from ABx - improved
# Right foot cellulitis
Improving well. Right dorsal foot ( healing skin excoriation). Left dorsal foot, intact blister
Less edema in legs noted with diuretics
Continue with IV cefepime & doxycycline then oral Cefdinir.
-doxycycline po x 7d through 4/7 am.
- Continue cefdinir 300mg po bid through 05/24.
# hypokalemia
replaced
Added oral KCl BID.
# Hypomagnesemia
-monitor and replace
# ARABELLA creatinine on admission 1.7. Last creatinine 1.3 on May 05
CKD 3B
Status post left nephrectomy
resolved
#Mild Thrombocytopenia- Resolved
#Mild Hyponatremia-
-monitor
No confusion
#Nausea
� I suspect secondary to antibiotics
� Lactate today
� Supportive care with Zofran, QTc okay
#Primary Hypertension
On pressure support now -
#Bronchiectasis
#Hyperlipidemia-Continue statin
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
#History of surgery for pulmonary nodule
#History of neuropathy
#Sensorineural hearing loss
# History of osteoarthritis
#Spinal Stenosis
#History of Hysterectomy
#History of Parathyroid node resection
#History of Left nephrectomy for malignancy
#Full code
#DVT prophylaxis�Lovenox
Anticipated Discharge: 24 - 48 hours
Subjective/Interval History
-
Date of Service: May 24, 2024
No acute events overnight, sitting in chair with some nausea. Heart rates improved
Objective Data
-
Labs:
Laboratory Results
05/24/24
04:02
WBC 8.7
Hgb 12.1
Hct 36.3 L
Plt Count 261
Sodium 132 L
Potassium 4.6
Chloride 99
Carbon Dioxide 27
BUN 21 H
Creatinine 0.9
Glucose 95
Calcium 8.1 L
Total Bilirubin 0.7
AST 26
ALT < 10
Alkaline Phosphatase 93
Vital Signs:
Vital Signs
Temp Pulse Resp BP Pulse Ox
98.6 F 103 16 131/65 96
05/24/24 11:24 05/24/24 13:30 05/24/24 11:24 05/24/24 11:44 05/24/24 11:24
I&O
05/23/24 05/24/24 05/25/24
06:59 06:59 06:59
Intake Total 680 / 680 580 / 580
Output Total 1700 / 1700 1100 / 1100 850 / 850
Balance -1020 / -1020 -520 / -520 -850 / -850
Review of Systems
-
History Source: Patient
All other systems: Not reviewed unless documented
Data Reviewed
-
Diagnostic Radiology: Image personally visualized and interpreted and Report Reviewed by me
Labs: Labs Reviewed by me
[2024-05-24] MEDS: ZOFRAN 4 MG IV ×2 (15:02→22:15)
[2024-05-24] MEDS: STERILE WATER FOR INJECTION IV (15:03)
--- NOTE | 2024-05-24 15:28 | PTCARENOTE ---
Patient with persistent nausea, belching. Zofran given.
--- NOTE | 2024-05-24 17:55 | PTCARENOTE ---
Slight relief from nausea, still present. Eating and drinking during the day. Right shoulder discomfort, offered Tylenol but refused. Lidoderm patch in place. Dinner ordered, call zhao in reach
[2024-05-24] MEDS: TOPROL XL PO ×2 (20:03→20:35)
[2024-05-24] MEDS: OMNICEF PO ×2 (20:03→20:35)
[2024-05-24] MEDS: MIRALAX PO (20:56)
[2024-05-24] MEDS: RESTORIL 15 MG PO (23:16)
--- NOTE | 2024-05-24 23:53 | PTCARENOTE ---
Received patient at change of shift. Afib on the monitor, HR in the 80s. Pt vomited about three minutes after taking PO Omnicef and metoprolol. PRN zofran administered as per APR, see documentation. MARII May aware. Call zhao within reach.
[2024-05-25 00:02] VITALS: BMI 26.6
[2024-05-25 04:16] VITALS: BP 117/54
[2024-05-25 05:11] LABS: Mean Corp Hgb Conc. 32.4 g/dL (33.0-37.0); Mean Corpuscular Hgb 27.8 pg (27.0-31.0); Mean Corpuscular Volume 86.1 fL (81.0-99.0); Mean Platelet Volume 9.8 fL (7.4-10.4); Platelet Count 239 10^3/uL (130-400); Red Blood Cell Count 3.95 10^6/uL (4.20-5.40); White Blood Cell Count 6.6 10^3/uL (4.8-10.8)
[2024-05-25 05:31] LABS: ALT (SGPT) < 10 U/L (0-35); AST (SGOT) 21 U/L (14-36); Albumin 2.4 g/dl (3.5-5.0); Alkaline Phosphatase 87 U/L (38-126); Blood Urea Nitrogen 17 mg/dl (7-17); Calcium 7.9 mg/dl (8.4-10.2); Carbon Dioxide 28 mmol/L (22-30); Chloride 98 mmol/L (98-107); Estimated Creatinine Clearance 32 ml/min; Glucose 86 mg/dl (70-99); Potassium 4.5 mmol/L (3.5-5.1); Sodium 130 mmol/L (135-145); Total Bilirubin 0.6 mg/dl (0.2-1.3); Total Protein 4.8 g/dl (6.3-8.2); eGFR 53.85
[2024-05-25 06:00] VITALS: BMI 26.2
[2024-05-25] MEDS: SYNTHROID 150 MCG PO (06:02)
[2024-05-25] MEDS: CARAFATE PO (07:56)
[2024-05-25 08:31] VITALS: BP 130/76
[2024-05-25] MEDS: BUMEX 2 MG PO (09:57)
[2024-05-25] MEDS: PROTONIX 40 MG PO (09:58)
[2024-05-25] MEDS: LOW STRENGTH ASPIRIN 81 MG PO (09:58)
[2024-05-25] MEDS: LIDOCAINE 4% PATCH 1 PATCH TOPICAL (09:58)
[2024-05-25] MEDS: PACERONE 200 MG PO (09:58)
[2024-05-25] MEDS: LIPITOR 10 MG PO (09:58)
[2024-05-25] MEDS: HEPARIN 5000 UNITS SC (09:59)
[2024-05-25] MEDS: TOPROL XL 50 MG PO (10:00)
[2024-05-25 11:02] VITALS: BP 124/57
--- NOTE | 2024-05-25 11:12 | W.PN.HOSP.TC ---
Today's Communication/Plan
-
BB, digoxin, Amio
Bumex
F/u Cardiology outpt
stop PPI
F/u Na in 3 days
FWR
Assessment / Plan
Assessment / Plan
Physical Exam
General:No Apparent Distress
HEENT: NormoCephalic, Moist mucous membranes and Atraumatic
Respiratory: much less Basal rales
Cardiac: S1/S2, Irregular Rhythm, Tachycardia.
GI: Soft, Non Tender, Non Distended and Normal Bowel Sounds;
Rectal: No bleed
Musculoskeletal: much less + edema, skin excoriation right dorsal foot, intact blister left dorsal foot
Psych, calm, pleasant
Neuro: Awake alert oriented x 3, follows commands, no tremor
Assessment and plan
# Acute on chronic heart failure with preserved ejection fraction
Doubt septic shock but ok to treat as such. Now bP seems to stabilize, off Phenylephrine gtt
Echo showed LVEF 30-35%, Enlarged RV with reduced function, Moderate TR. Normal PASP. Compared to 03/14/24: LV and RV dysfunction are new. Moderate TR is new.
V-Q scan of lungs low probability. US of legs no DVT
S/P Cath L & R side, No blocked CAD, elevated filling pressures.
Possible regulator versus stress cardiomyopathy
IV Lasix, transition over to p.o. bumex daily
Metoprolol 50 mg twice daily
# Bilateral pleural effusions, right sided greater than left.
s/p thoracentesis of right lung completed on 05/17. 1.1 L of straw-colored fluid drained. Analysis showed transudative fluid with elevated white blood cell count, cultures ngtd
Post thoracentesis re-expansion acute pulmonary edema, improved with Lasix and O2
Now back on p.o. Lasix
# History of paroxysmal A-fib, uncontrolled
Status post Watchman device
Status post cardioversion in February 2024
s/p amiodarone drip. Now off flecainide. Started on oral amiodarone & BB, Digoxin.
Started on metoprolol orally
On ASA and not AC with Watchman in place. If DCCV is needed, will need at least a month of anticoagulation.
#GERD-
-no egd for many years
-possibly exacerbated by abx and sucralfate
-with hyponatremia, DC PPI
-with continued nausea - DC sucralfate
-Famotidine initiated
-can consider GI outpatient if continued nausea
# Right foot cellulitis
Improving well. Right dorsal foot ( healing skin excoriation). Left dorsal foot, intact blister
Less edema in legs noted with diuretics
Continue with IV cefepime & doxycycline then oral Cefdinir.
-doxycycline po x 7d through 4/7 am.
- cefdinir 300mg po bid through 8.
# hypokalemia
replaced
Added oral KCl BID.
# Hypomagnesemia
-monitor and replace
# ARABELLA creatinine on admission 1.7. Last creatinine 1.3 on May 05
CKD 3B
Status post left nephrectomy
resolved
#Mild Thrombocytopenia- Resolved
#Mild Hyponatremia-
-bumex
-free water restriction
-stop PPI
-f/u bmp in 3 days
-monitor
-No confusion
#Nausea
� I suspect secondary to antibiotics
�improved
-stop sucralfate
#Primary Hypertension
as above
#Bronchiectasis
#Hyperlipidemia-Continue statin
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
#History of surgery for pulmonary nodule
#History of neuropathy
#Sensorineural hearing loss
# History of osteoarthritis
#Spinal Stenosis
#History of Hysterectomy
#History of Parathyroid node resection
#History of Left nephrectomy for malignancy
#Full code
#DVT prophylaxis�Lovenox
More than 30 minutes spent in discharge including
Final examination of the patient
Summarizing hospital stay
Instructions for continuing care to all relevant caregivers
Preparation of discharge records, prescriptions, and referral forms
Total time spent (in minutes): 37
Anticipated Discharge: Today
Subjective/Interval History
-
Date of Service: May 25, 2024
no acute events, nausea improved albeit still present
Objective Data
-
Labs:
Laboratory Results
05/25/24 05/25/24
04:36 11:02
WBC 6.6
Hgb 11.0 L
Hct 34.0 L
Plt Count 239
Sodium 130 L Pending
Potassium 4.5 Pending
Chloride 98 Pending
Carbon Dioxide 28 Pending
BUN 17 Pending
Creatinine 1.0 Pending
Glucose 86 Pending
Calcium 7.9 L Pending
Total Bilirubin 0.6
AST 21
ALT < 10
Alkaline Phosphatase 87
Vital Signs:
Vital Signs
Temp Pulse Resp BP Pulse Ox
98.3 F 76 18 130/76 95
05/25/24 11:04 05/25/24 08:31 05/25/24 11:04 05/25/24 08:31 05/25/24 11:04
I&O
05/24/24 05/25/24 05/26/24
06:59 06:59 06:59
Intake Total 580 / 580
Output Total 1100 / 1100 1450 / 1450 200 / 200
Balance -520 / -520 -1450 / -1450 -200 / -200
Review of Systems
-
History Source: Patient
All other systems: Not reviewed unless documented
Data Reviewed
-
Diagnostic Radiology: Image personally visualized and interpreted and Report Reviewed by me
Labs: Labs Reviewed by me
[2024-05-25] MEDS: LANOXIN 250 MCG PO (11:51)
[2024-05-25 12:38] LABS: Blood Urea Nitrogen 16 mg/dl (7-17); Calcium 8.3 mg/dl (8.4-10.2); Carbon Dioxide 33 mmol/L (22-30); Chloride 96 mmol/L (98-107); Estimated Creatinine Clearance 29 ml/min; Glucose 97 mg/dl (70-99); Potassium 4.6 mmol/L (3.5-5.1); Sodium 132 mmol/L (135-145); eGFR 48.03
[2024-05-25 14:50] VITALS: BP 127/46
--- NOTE | 2024-05-25 16:39 | PTCARENOTE ---
Pt seen by Drs. Delacruz and Salbador. Telemetry and IV device removed. [facility] with all her belongings via wheelchair van at 15:40.
== END 2024-05-25 15:40 | DRG 871 ==
LOC: IVU 23:23
PROVIDERS: Internal Medicine; Internal Medicine Cardiovascular Disease; Internal Medicine Critical Care Medicine; Nurse Practitioner Family; Nurse Practitioner Primary Care; Radiology Diagnostic Radiology; Radiology Neuroradiology; ADMITTING PHYSICIAN Internal Medicine; ATTENDING PHYSICIAN Internal Medicine; CONSULT PHYSICIAN Internal Medicine Cardiovascular Disease; CONSULT PHYSICIAN Internal Medicine Critical Care Medicine; EMERGENCY PHYSICIAN Emergency Medicine; FAMILY PHYSICIAN Family Medicine; OTHER PHYSICIAN Internal Medicine Infectious Disease
PROC: 02HV33Z Insertion of Infusion Device into Superior Vena Cava, Percutaneous Approach (ICD-10-PCS; 2024-05-16)
PROC: CB121ZZ Planar Nuclear Medicine Imaging of Lungs and Bronchi using Technetium 99m (Tc-99m) (ICD-10-PCS; 2024-05-17)
PROC: 0W993ZZ Drainage of Right Pleural Cavity, Percutaneous Approach (ICD-10-PCS; 2024-05-17)
PROC: B2111ZZ Fluoroscopy of Multiple Coronary Arteries using Low Osmolar Contrast (ICD-10-PCS; 2024-05-19)
PROC: 4A023N8 Measurement of Cardiac Sampling and Pressure, Bilateral, Percutaneous Approach (ICD-10-PCS; 2024-05-19)
DX: A41.9 Sepsis, unspecified organism (principal); I50.33 Acute on chronic diastolic (congestive) heart failure; R65.21 Severe sepsis with septic shock; R57.0 Cardiogenic shock; J18.9 Pneumonia, unspecified organism; I13.0 Hypertensive heart and chronic kidney disease with heart failure and stage 1 through stage 4 chronic kidney disease, or unspecified chronic kidney disease; N17.9 Acute kidney failure, unspecified; L03.115 Cellulitis of right lower limb; E87.1 Hypo-osmolality and hyponatremia; I42.9 Cardiomyopathy, unspecified; J98.11 Atelectasis; I48.0 Paroxysmal atrial fibrillation; N18.32 Chronic kidney disease, stage 3b; E78.00 Pure hypercholesterolemia, unspecified; E83.42 Hypomagnesemia; N18.30 Chronic kidney disease, stage 3 unspecified; K21.9 Gastro-esophageal reflux disease without esophagitis; I95.9 Hypotension, unspecified; I45.10 Unspecified right bundle-branch block; R74.01 Elevation of levels of liver transaminase levels; M81.0 Age-related osteoporosis without current pathological fracture; G70.00 Myasthenia gravis without (acute) exacerbation; D64.9 Anemia, unspecified; D69.6 Thrombocytopenia, unspecified; E06.3 Autoimmune thyroiditis; I27.29 Other secondary pulmonary hypertension; G62.9 Polyneuropathy, unspecified; L89.621 Pressure ulcer of left heel, stage 1; L89.611 Pressure ulcer of right heel, stage 1; L89.152 Pressure ulcer of sacral region, stage 2; L89.322 Pressure ulcer of left buttock, stage 2; H90.5 Unspecified sensorineural hearing loss; M19.012 Primary osteoarthritis, left shoulder; E87.6 Hypokalemia; S01.81XA Laceration without foreign body of other part of head, initial encounter; X58.XXXA Exposure to other specified factors, initial encounter; Z96.611 Presence of right artificial shoulder joint; Z79.890 Hormone replacement therapy; Z79.82 Long term (current) use of aspirin; Z88.5 Allergy status to narcotic agent; Z88.2 Allergy status to sulfonamides; Z88.8 Allergy status to other drugs, medicaments and biological substances; Z91.048 Other nonmedicinal substance allergy status; Z90.710 Acquired absence of both cervix and uterus; Z85.528 Personal history of other malignant neoplasm of kidney; Z90.5 Acquired absence of kidney; Z11.52 Encounter for screening for COVID-19; Z87.81 Personal history of (healed) traumatic fracture; Z86.0100 Personal history of colon polyps, unspecified; Z80.8 Family history of malignant neoplasm of other organs or systems; Z82.49 Family history of ischemic heart disease and other diseases of the circulatory system; Z87.440 Personal history of urinary (tract) infections; Z95.818 Presence of other cardiac implants and grafts; Z86.19 Personal history of other infectious and parasitic diseases; Z85.828 Personal history of other malignant neoplasm of skin
CPT/HCPCS: 88305; 93308; 32555; 71045; 76604; 78582; 80048; 80053; 80076; 80162; 82248; 82805; 82945; 83615; 83735; 83880; 83986; 84157; 84443; 84484; 85025; 85027; 85610; 85730; 87015; 87040; 87070; 87205; 87811; 88112; 89051; 93005; 93321; 93325; 93460; 93970; 96361; 96365; 96367; 96375; 97110; 97116; 97163; 97167; 97530; 97535; 99291; A9540; A9567; C1894; J1160; Q9950; Q9967

== ENCOUNTER → 2024-05-27 11:55 | Outpatient (REF) | payer OTHER, SELFPAY ==
[2024-05-27 13:50] LABS: % Basophils 0.4 % (0-2); % Eosinophils 2.2 % (0-6); % Immature Granulocytes 0.4 % (0-0.5); % Monocytes 12.1 % (1.7-9.3); % Neutrophils 56.9 % (42.2-75.2); Absolute Eosinophils 0.1 10^3/uL (0-0.7); Absolute Lymphocytes 1.6 10^3/uL (1.2-3.4); Absolute Monocytes 0.7 10^3/uL (0.1-0.6); Absolute Neutrophils 3.2 10^3/uL (1.4-6.5); Hematocrit 33.4 % (37.0-47.0); Hemoglobin 10.5 g/dL (12.0-16.0); Mean Corp Hgb Conc. 31.4 g/dL (33.0-37.0); Mean Corpuscular Hgb 27.9 pg (27.0-31.0); Mean Corpuscular Volume 88.8 fL (81.0-99.0); Mean Platelet Volume 11.8 fL (7.4-10.4); Nucleated Red Blood Cells % 0 %; Platelet Count 271 10^3/uL (130-400); Red Blood Cell Count 3.76 10^6/uL (4.20-5.40); Red Cell Dist. Width 16.8 % (11.5-14.5); White Blood Cell Count 5.5 10^3/uL (4.8-10.8)
[2024-05-27 14:08] LABS: ALT (SGPT) < 10 U/L (0-35); AST (SGOT) 21 U/L (14-36); Albumin 2.3 g/dl (3.5-5.0); Alkaline Phosphatase 69 U/L (38-126); Blood Urea Nitrogen 13 mg/dl (7-17); Carbon Dioxide 31 mmol/L (22-30); Chloride 97 mmol/L (98-107); Glucose 76 mg/dl (70-99); Potassium 4.8 mmol/L (3.5-5.1); Sodium 131 mmol/L (135-145); Total Bilirubin 0.5 mg/dl (0.2-1.3); Total Protein 4.5 g/dl (6.3-8.2); eGFR > 60.00
== END ==
LOC: OLABP 11:55
PROVIDERS: ATTENDING PHYSICIAN Family Medicine
DX: I50.9 Heart failure, unspecified (principal); I48.91 Unspecified atrial fibrillation; I10 Essential (primary) hypertension; N17.9 Acute kidney failure, unspecified; L89.611 Pressure ulcer of right heel, stage 1
CPT/HCPCS: 36415; 80053; 85025

== ENCOUNTER → 2024-06-06 11:52 | Outpatient (REF) | payer OTHER, SELFPAY ==
[2024-06-06 12:13] LABS: % Basophils 0.5 % (0-2); % Eosinophils 1.9 % (0-6); % Immature Granulocytes 0.5 % (0-0.5); % Lymphocytes 17.4 % (20.5-51.1); % Neutrophils 64.7 % (42.2-75.2); Absolute Eosinophils 0.2 10^3/uL (0-0.7); Absolute Lymphocytes 1.5 10^3/uL (1.2-3.4); Absolute Monocytes 1.3 10^3/uL (0.1-0.6); Absolute Neutrophils 5.7 10^3/uL (1.4-6.5); Hemoglobin 11.8 g/dL (12.0-16.0); Mean Corp Hgb Conc. 31.9 g/dL (33.0-37.0); Mean Corpuscular Volume 87.9 fL (81.0-99.0); Mean Platelet Volume 10.9 fL (7.4-10.4); Nucleated Red Blood Cells % 0 %; Platelet Count 216 10^3/uL (130-400); Red Blood Cell Count 4.21 10^6/uL (4.20-5.40); Red Cell Dist. Width 16.3 % (11.5-14.5); White Blood Cell Count 8.7 10^3/uL (4.8-10.8)
[2024-06-06 12:45] LABS: Magnesium 1.6 mg/dl (1.6-2.3)
[2024-06-06 13:51] LABS: Digoxin 2.5 ng/ml (0.8-2.0)
[2024-06-06 14:20] LABS: ALT (SGPT) 21 U/L (0-35); AST (SGOT) 28 U/L (14-36); Albumin 3.2 g/dl (3.5-5.0); Alkaline Phosphatase 74 U/L (38-126); Blood Urea Nitrogen 20 mg/dl (7-17); Calcium 9.4 mg/dl (8.4-10.2); Carbon Dioxide 31 mmol/L (22-30); Chloride 93 mmol/L (98-107); Glucose 84 mg/dl (70-99); Potassium 3.8 mmol/L (3.5-5.1); Sodium 134 mmol/L (135-145); Total Bilirubin 0.8 mg/dl (0.2-1.3); Total Protein 5.5 g/dl (6.3-8.2); eGFR 39.31
== END ==
LOC: OLABP 11:52
PROVIDERS: ATTENDING PHYSICIAN Family Medicine
DX: I50.9 Heart failure, unspecified (principal); N17.9 Acute kidney failure, unspecified; K21.9 Gastro-esophageal reflux disease without esophagitis; I48.91 Unspecified atrial fibrillation; L89.611 Pressure ulcer of right heel, stage 1; L03.115 Cellulitis of right lower limb; G47.00 Insomnia, unspecified; N18.31 Chronic kidney disease, stage 3a
CPT/HCPCS: 36415; 80053; 80162; 83735; 85025

== ENCOUNTER 2024-07-04 05:57 | Day surgery (SDC) | payer OTHER, SELFPAY ==
[2024-07-04] VITALS (24 sets, daily range): BP systolic 104–133; BP diastolic 35–97; BMI 24.5; BMI 24.3; BMI 24.9
[2024-07-04] MEDS: NSS 500 IV (10:34)
--- NOTE | 2024-07-04 15:14 | ITS.CL.PACE ---
Induction Brazer - Pacemaker Implant
Pacemaker Implant
Procedure Report:
Conduction system pacing Permanent Pacemaker Placement:
Ms. 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
bleeding s/p watchman and off the anticoagulation therapy is on maximally tolerated GDMT. Patient and her son are not interested in pursuing ICD placement but are interested in adequate rate control with AF with RVR. Miri does have occasional
sinus rhythm and would like to have atrial lead to avoid atrio ventricular dyssynchrony. Patient is frail and is recommended to have AVJ ablation and is in need for a back up pacemaker. Given her LV dysfunction, it was recommended to proceed with
the conduction system pacemaker and is here for device implantation.
Indications: Planned AVJ ablation and fluctuating ventricular systolic dysfunction, with impending AV kelsey block needs a conduction system pacemaker.
Date of the Procedure: 07/04/2024
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
Procedure Performed: CONDUCTION SYSTEM PERMANENT PACEMAKER IMPLANTATION
Performing Physician:
Rita Siu MD
Anesthesia:
See anesthesia records
Detailed Description of the Procedure:
The patient was identified using hospital identification and informed consent obtained for the procedure. The risks were explained to the patient and the family including, but not limited to: Bleeding, infection, arrhythmia, stroke,
vascular/cardiac/lung puncture, surgery, pacemaker dependency/device malfunction. All questions were answered.
A surgical pause was performed in accordance with hospital regulations. Anesthesia service provided sedation as reported separately. Antibiotics administered IV for risk of bacterial colonization. After obtaining informed and written consent, the
patient was brought to the electrophysiology laboratory.
A timeout was performed immediately before the procedure. The left chest was prepped from the nipple to the angle of the jaw with chlorhexidine, and draped following sterile technique in usual routine.�
The procedure site was meticulously prepared with surgical scrub and allowed to dry with no pooling. Sterile draping was applied to cover the procedure site. The image intensifier was draped with sterile bag and positioned over the patient.
The left infraclavicular region was prepped and draped in the usual sterile fashion. Local anesthesia was administered subcutaneously using 1% lidocaine / Bupivacaine. The left cephalic vein cut down was done and guide wires were advanced to the
inferior vena cava (IVC) under flouro guidance.
A subcutaneous pocket was created with blunt dissection and use of electrocautery. Hemostasis was excellent.
Attention then was turned to the left bundle branch pacing lead. The guide wire was advanced to the RA and was advanced to the RV. The preformed curved long hemostatic peel away HIS sheath was advanced into the RV cavity. A left bundle pacing wire
was advanced into the sheath to the tip with ventricular signals noted with unipolar manner. The sheath with the pacing lead was moved deeper into the RV cavity from the HIS location on the septum at a more inferior and distal to the HIS signals.
Once adequate signals were noted on the electrograms of the pacing lead in the sheath with W pattern signals on the RV septum, the lead was advanced and clockwise turns were done under fluoroscopic guidance. The septum was engaged and the lead was
paced intermittently after every 2-3 turns. The Impedance of the lead was measured that remained stable around 700 Ohm and the lead was not able to advance into the septum. The ventricualr capture was monitored throughout and the captures gradually
changed from RV pacing to non-selective pacing to LBB pacing with R wave on V1.
With RBBB pattern noted on the pacing lead, it was decided to accept the location as optimal location. The long guiding sheath was cut and removed from the RV without change in lead position, impedance, sensing, or capture. The lead was sutured to
the underlying pectoralis fascia with 2-0 Ethibond stitches.
The RA lead was anchored in the right atrial appendage with passive fixation using tines. There was excellent sensing, pacing, and impedance from the leads, with no diaphragmatic stimulation at 10 V output.�Bovie cautery, antibiotics, and
fluoroscopy were used.
The leads were attached to the pulse generator in standard configuration with acceptable sensing and threshold parameters. The pocket was irrigated with antibiotic solution; the pocket was inspected with no active bleeding noted. The device and the
leads were placed in the pocket.
A Tyrx pouch was placed around the device and the leads.
Deep subcutaneous tissues were closed with 3 layers of 2-0 Vloc sutures; and the dermis was reopposed using a running 4-0 monocryl subcuticular suture. Sponge counts / sharp counts were appropriate.
Procedure End:
The procedure was tolerated well. Aquacel bandaged was applied. A pressure dressing was applied.
Estimated Blood loss:
5 cc
Specimens Removed:
No cultures and no specimens were obtained. No intraoperative pathology was identified.
Urine output:
None
Packs / Drains/ Tubes:
None
Instrument / Sponge Count Correct:
Yes
Flouro time:
17.3min / 26.8 mGy
Complications of the Procedure:
None
Condition of Patient at Time of Transfer:
Hemodynamically stable with no neurological or vascular compromise.
Device information:�
Generator: [employer]; Model: W1DR01; Serial # [id number]�
����������� Atrial Lead: Medtronic; Model: 4574-45; Serial # [id number]�
Measured data in the right atrium was sensing of 1.4 mV, impedance of 703 ohms and threshold not tested due to atrial fibrillation.
����������� LBB pacing lead: Medtronic; Model: 3830-69; Serial # [id number]
����������������������� Measured data on the RV lead was sensing of 12.5mV, impedance of 798 ohms and threshold of 0.75 V at 0.4ms
PROGRAMMING PARAMETERS:�
Keegan parameter settings were DDDR 60-130 bpm �(Mode switched to VVIR 60 bpm)
����������� Paced AV interval: 180ms
����������� Sensed AV interval: 150 ms.
����������� Rate Adaptive A-V Interval: off
����������� Mode switch ON
�
Summary:
Successful implantation of MRI compatible LBB pacing dual chamber pacemaker.
Results/Recommendations:
-Please follow up CXR�
1. Please provide patient with adequate pain control�
Instructions to be given to patient:�
- Please follow up with [facility] at [address] [place] [address] ([phone]) to get your wound checked in 2 weeks of your discharge. Then follow with
- Do not wet incision site until after it is evaluated at cardiology clinic. No baths or showers until then. Sponge baths / showers are OK but dab dry the dressing after it is wet.�
- Allow 'steri strips' to fall off on their own�
- Do not lift left elbow above shoulder, particularly with sudden jerking movements, for 1 month�
- Do not lift anything weighing more than 5 pounds with the left arm for 1 month�
- If you notice any fevers, shortness of breath, lightheadedness, chest pain, or worsening swelling in the wound site, please contact the arrhythmia clinic, contact your hand hardener, or present to the hospital for evaluation.�
Rita Siu MD
Electrophysiology
--- NOTE | 2024-07-04 15:21 | ITS.CL.ABL ---
Diabetic Educator - Ablation
Ablation
Procedure Report:
Atrio-Ventricular Junction Ablation:
Ms. eNttles is a very pleasant�89 yr old woman with medical history significant for persistent atrial fibrillation with plan for ablate and pace strategy for difficult to control atrial fibrillation has undergone PPM placement. She is advised to
proceed with AVJ ablation. �
Date of the Procedure:
07/04/2024
Indications:
Persistent atrial fibrillation and rapid ventricular response
�
Pre-Operative Diagnosis:
Persistent atrial fibrillation and rapid ventricular response
�
Post-Operative Diagnosis:
Permanent atrial fibrillation and rapid ventricular response
�
Procedure Performed:
AVJ / AV kelsey ablation
�
Performing Physician:
Rita Siu MD
�
Anesthesia:
See anesthesia records
�
Detailed Description of the Procedure:
Written informed consent was obtained from the patient after a full explanation of the risks and benefits of the procedure including the risks of sedation and anesthesia. The patient was brought to the electrophysiology laboratory in stable
condition in fasting state. Continuous electrocardiographic and hemodynamic monitoring was initiated.
The initial rhythm was atrial fibrillation.
The procedure site was meticulously prepared with surgical scrub and allowed to dry with no pooling. Sterile draping was applied to cover the procedure site. The image intensifier was draped with sterile bag and positioned over the patient.
Device interrogation and modifications:
The device was interrogated. The tachy therapies were suspended and LV pacing were turned off. The PPM was switched to VVI 40 bpm.
The device remained like this throughout the entire procedure and was turned back to usual setting at the end of the case.
Sheath and Catheter Placement:
After infusion of local anesthetic, vascular access was obtained under ultrasound guidance and sheaths were placed over guide wire as detailed below.
�
Sheaths:
��������������� - 8.5 Fr sheath SL1 in right femoral vein
�
Catheters:
��������������� - Saphire 4 mm ablation catheter
�
Following the sheath placement, EP study was done to identify the His location.
The EP study showed atrial fibrillation and His location was identified. RV /LV lead was pacing adequately with AF with AV kelsey conduction noted.
�
AV kelsey ablation:
Cardiac anatomy as established. HIS cloud was established. The triangle of Willis was marked with ablation catheter.
Using Sapphire catheter (4mm -non-irrigated radiofrequency ablation catheter), the catheter was placed at the His locations and using 50watts of energy at 50degree temperature, the AV node was ablated for 60 seconds. Additional ablations were placed
around the area. Patient was paced in the RV/LV via the BiV pacing leads. Further a couple of consolidation lesions were applied around that area.
Patient was observed for 15-20 minutes with no sign of AV node recovery.
Post Ablation EP study:
The EP study was done via the device and atrial fibrillation noted at the atrium and RV pacing with no AV conduction.
The device was reprogrammed to its initial settings. Patient was noted to be LBB paced without any irregular heartbeat.
Procedure End
Following the completion of the procedure, the catheter was removed. The sheaths were removed and hemostasis achieved manual compression and Figure of 8 suture was applied.
Recommendations:
Continue home medications
Discontinue Amiodarone
Discontinue Digoxin
�
Estimated Blood loss:
<5 cc
�
Specimens Removed:
None.
�
Implants / Devices:
None
�
Urine output:
None
�
Packs / Drains/ Tubes:
None
�
Instrument / Sponge Count Correct:
Yes
�
Complications of the Procedure:
None
�
Condition of Patient at Time of Transfer:
Hemodynamically stable with no neurological or vascular compromise.
Summary:
Successful AV kelsey ablation
[2024-07-04] MEDS: LIDOCAINE 4% PATCH 1 PATCH TOPICAL (17:30)
[2024-07-04] MEDS: LIPITOR 10 MG PO (17:30)
--- NOTE | 2024-07-04 19:19 | PTCARENOTE ---
~1630: Handoff report rceived from clinical lab clerk.
~1700: patient transported to room via stretcher from [facility]. pt Aox4, V paced 60s on tele, 2L NC which patient was able to be weaned to RA satting 95%. Pt c/o 7/10 L shoulder pain, lidocaine patch applied per order. L upper chest with the aquacel
dressing, CDI, limb immobilizer on. r groin figure of 8 sutures under CDI dressing. figure of 8 sutures can be removed around 1830 per order and patient bedrest until 1900. Per patient, she has not voided all day, bladder scan obtained for 230cc.
All needs met at this time, son at bedside visiting, VSS, call zhao within reach.
~3957-5985: Patient resting in bed, VSS. At 1825, Figure of 8 sutures removed and new dressing applied. Site soft with no hematoma present at this time. Pt remains bedrest until 1900. All needs met at this time, call zhao within reach. Handoff
report given to nightshift RN.
[2024-07-04] MEDS: MACROBID PO (19:56)
[2024-07-04] MEDS: ANCEF 5 IV (20:02)
[2024-07-04] MEDS: TOPROL XL 50 MG PO (20:05)
[2024-07-04 20:54] LABS: Urine Albumin 2+ (Neg - Trace); Urine Bilirubin Negative (Negative); Urine Character Slightly Cloudy (Clear); Urine Color Yellow; Urine Glucose Negative (Negative); Urine Ketone Negative (Negative); Urine Leukocyte 3+ (Negative); Urine Nitrite Negative (Negative); Urine Occult Blood Negative (Negative); Urine Urobilinogen Negative (Neg - 1+)
[2024-07-04 21:02] LABS: Urine Bacteria Few (Negative); Urine White Cell 16-20 /HPF (0-5)
[2024-07-04] MEDS: RESTORIL 15 MG PO (22:10)
--- NOTE | 2024-07-04 22:35 | PTCARENOTE ---
Received patient at change of shift. V paced on the monitor, HR in the 60s. R groin dressing CDI, soft. L chest with dressing intact, L arm immobilizer in place. Educated pt on activity restrictions, pt verbalizes understanding. No complaints from
pt at this time, call zhao within reach.
[2024-07-05 03:20] VITALS: BP 129/59
[2024-07-05] MEDS: TYLENOL 650 MG PO ×2 (03:42→07:42)
[2024-07-05] MEDS: ANCEF 5 IV (03:42)
[2024-07-05 04:13] LABS: Hematocrit 36.2 % (37.0-47.0); Hemoglobin 11.4 g/dL (12.0-16.0); Mean Corp Hgb Conc. 31.5 g/dL (33.0-37.0); Mean Corpuscular Hgb 27.5 pg (27.0-31.0); Mean Corpuscular Volume 87.4 fL (81.0-99.0); Platelet Count 182 10^3/uL (130-400); Red Blood Cell Count 4.14 10^6/uL (4.20-5.40); Red Cell Dist. Width 15.2 % (11.5-14.5); White Blood Cell Count 6.5 10^3/uL (4.8-10.8)
[2024-07-05 04:38] LABS: Blood Urea Nitrogen 21 mg/dl (7-17); Calcium 8.8 mg/dl (8.4-10.2); Carbon Dioxide 28 mmol/L (22-30); Chloride 105 mmol/L (98-107); Estimated Creatinine Clearance 22 ml/min; Glucose 104 mg/dl (70-99); Potassium 3.5 mmol/L (3.5-5.1); Sodium 138 mmol/L (135-145); eGFR 39.31
[2024-07-05] MEDS: SYNTHROID 150 MCG PO (06:46)
[2024-07-05 06:51] VITALS: BP 130/53
[2024-07-05] MEDS: TOPROL XL 50 MG PO (07:39)
[2024-07-05] MEDS: BUMEX 2 MG PO (07:39)
[2024-07-05] MEDS: PROTONIX 40 MG PO (07:39)
[2024-07-05] MEDS: MACROBID 100 MG PO (07:40)
[2024-07-05] MEDS: LOW STRENGTH ASPIRIN 81 MG PO (07:40)
[2024-07-05 08:00] VITALS: BMI 24.9
--- NOTE | 2024-07-05 08:35 | W.PN.CD ---
Today's Communication / Plan
-
- Discharge home
- Incision check in 1-2 weeks at [facility] then follow at Dr. Hall
- Device clinic follow up.
Impression / Plan
-
Ms. 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
bleeding s/p watchman and off the anticoagulation therapy is on maximally tolerated GDMT. Patient and her son are not interested in pursuing ICD placement but are interested in adequate rate control with AF with RVR. Patient does have occasional
sinus rhythm and would like to have atrial lead to avoid atrio ventricular dyssynchrony now s/p conduction system pacemakerr and AVJ ablation
AF
- Rate controlled with AVJ ablation
- S/p PPM - dual chamber with conduction system - [employer] 07/04/24
- Telemetry overnight showed paced rhythm without any evidence of AV conduction.
- Discontinue Digoxin and Amiodarone
- Continue Metoprolol.
- S/p Watchman 2020 - on ASA.
CHF
- HFrEF
- ECHO 05/16/24: LVEF 30%
- GDMT - limited due to hypotension
- Followed by Dr. Hall
UTI
- Treated.
- Repeated UA is much improved.
Physical Exam
Vital Signs/Labs
Vital Signs
Temp Pulse Resp BP Pulse Ox
98.0 F 61 16 130/53 96
07/05/24 07:07 07/05/24 07:00 07/05/24 07:07 07/05/24 06:51 07/05/24 08:00
07/04/24 07/05/24 07/06/24
06:59 06:59 06:59
Actual Weight 60.7 kg 59.783 kg
07/05/24 03:38
07/05/24 03:38
Physical Exam
Constitutional: No acute distress and Comfortable
EENT: Anicteric and Moist mucous membranes
Cardiovascular: Rhythm & rate is regular, Pedal edema is absent and JVD pressure is normal
Respiratory: Respiratory effort normal and Lungs clear to auscul.
GI: Soft, Non tender and Normal bowel sounds
Neuro/Psych: Alert, Oriented and AO x 3
Other: Cath Site and Cardiac Device Site
Data Reviewed
-
Date of Service: July 05, 2024
Medical Decision Making: Reviewed Test Results, Test Interpretation and Review of Case with other Provider
EKG: Tracing Personally Visualized and interpreted
Echo: Report Reviewed by me
Medical Tests (PFT, Pathology etc): Discussed with Patient
Labs: Labs Reviewed by me
Old Records: Reviewed
[2024-07-05] MEDS: KCL 40 MEQ PO (09:50)
[2024-07-05] MEDS: ULTRAM 25 MG PO (10:08)
--- NOTE | 2024-07-05 10:56 | W.DS.TRANS ---
DC Summary - [employer] Crew[employer]
-
Discharge Instructions:
Sleep Apnea Risk Low
Discharge Diagnosis/Procedures Pacemaker implant with AVJ ablation
Diet Low Cholesterol
Driving Restrictions No driving for 1 week
Bathing Restrictions OK to Shower
Instructions:
Stand-Alone Forms: DC Instructions- Cath/EP Lab
DC Inst - Implanted Device
Changes to Home Medications: Yes
Discharge Medications:
DC Medications w/original date entered in [employer]
denosumab 60 mg/mL subcutaneous syringe (Prolia) 60 mg SQ [id number] OSTEOPROSIS 04/29/19
temazepam 15 mg capsule 15 mg PO HS Sleep 04/29/19
Konsyl Daily Fiber 28.3% Packet 1 tsp PO DAILY Supplement 08/09/20
cholecalciferol (vitamin D3) 50 mcg (2,000 unit) tablet 50 mcg PO DAILY Supplement ##0 08/09/20
xhukzfpg-pdbw-iuts 8 mg-folic 400 mcg-K 50 mcg-lutein 300 mcg tablet (Centrum Silver Women) 1 ea PO NOON Supplement 08/09/20
vit C 250 mg-vit E 90 mg-zinc 40 mg-copper 1 xt-obnzoa-eoligv capsule (PreserVision AREDS-2) 1 ea PO BID Supplement 08/09/20
levothyroxine 100 mcg tablet 150 mcg PO DAILY Thyroid 11/29/20
aspirin 81 mg chewable tablet 81 mg PO DAILY Blood Clot Prevention/Tx 03/12/24
atorvastatin 10 mg tablet 10 mg PO QPM High Cholesterol 03/12/24
acetaminophen 325 mg tablet 650 mg (2 x 325 mg) PO Q4HPRN PRN mild pain/PARKER/temp> 100.4F #0 tabs 03/17/24
benzocaine 6 mg-menthol 10 mg lozenges (Chloraseptic Sore Throat) 1 minal PO Q4HPRN PRN cough/dry throat #0 ea 03/17/24
docusate sodium 100 mg capsule 100 mg PO BID Constipation #30 caps 03/17/24
sennosides 8.6 mg tablet (Sabrina-chester) 17.2 mg (2 x 8.6 mg) PO BID PRN Constipation #0 tabs 03/17/24
lidocaine 4 % topical patch (Lidocaine Pain Relief) 1 patch topical DAILY PRN pain 05/14/24
polyethylene glycol 3350 17 gram oral powder packet (Miralax) 17 g PO HS Constipation 05/14/24
nitrofurantoin monohydrate/macrocrystals 100 mg capsule (Macrobid) 100 mg PO BID 07/04/24
pantoprazole 40 mg tablet,delayed release 40 mg PO DAILY 07/04/24
propylene glycol 0.6 % eye drops (Systane Complete) 1 drp ophthalmic (eye) DAILY PRN dry eyes 07/04/24
bumetanide 2 mg tablet 2 mg PO DAILY #30 tabs 07/05/24
metoprolol succinate 50 mg tablet,extended release 24 hr 50 mg PO BID #60 tabs 07/05/24
Home Medication Changes
STOP: amiodarone, digoxin
Pending Results: No
[2024-07-05 11:59] VITALS: BP 112/44
--- NOTE | 2024-07-05 12:06 | CM ---
spoke to pt in room, she is prev incdep, lives alone in a condo with one step to enter. she will be using a walker. she denies any dc planning needs. plan is for dc to home when medically stable.
--- NOTE | 2024-07-05 12:35 | PTCARENOTE ---
Pt received this am with c/o of left chest incisional pain. Medicated with Tylenol 650 mg po as ordered with slight relief. Medicated with Ultram as ordered with complete relief. Pt denies any chest pain or sob. V paced on the monitor. Pt discharged
to home with her daughter. Discharge instructions given and reviewed. Pt verbalized good understanding and all questions answered.
== END 2024-07-05 13:27 | disposition home or self-care (01) ==
LOC: CATH 05:57
PROVIDERS: Nurse Practitioner; ATTENDING PHYSICIAN Internal Medicine Cardiovascular Disease; FAMILY PHYSICIAN Family Medicine; OTHER PHYSICIAN Internal Medicine Cardiovascular Disease
DX: I48.21 Permanent atrial fibrillation (principal); I42.8 Other cardiomyopathies; I49.5 Sick sinus syndrome; I11.0 Hypertensive heart disease with heart failure; E78.5 Hyperlipidemia, unspecified; E06.3 Autoimmune thyroiditis; J47.9 Bronchiectasis, uncomplicated; R91.1 Solitary pulmonary nodule; K21.9 Gastro-esophageal reflux disease without esophagitis; E21.3 Hyperparathyroidism, unspecified; Z90.5 Acquired absence of kidney; Z79.890 Hormone replacement therapy; Z79.899 Other long term (current) drug therapy; Z79.82 Long term (current) use of aspirin
CPT/HCPCS: 33208; 93286 ×2; C1733; C1892; C1894; 71045; 80048; 81003; 81015; 85027; 93005; 93650; C1769; C1785; C1893; C1898